=== PATIENT | female | born 2000 | race Caucasian/White ===

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

== ENCOUNTER 2019-01-03 07:30 | Inpatient (IN) | payer OTHER ==
[~2019-01-03] VITALS: Ht 162.6 cm; Wt 86.2 kg
[~2019-01-03 07:30] MED LIST changes: +PRENCHW PO
[2019-01-04] MEDS ORDERED: PERC5TAB12 PO (12:02)
[2019-01-06] MEDS ORDERED: OXYC1TAB23 PO (14:44)
[2019-01-06] MEDS ORDERED: STOO100C PO (18:56)
[2019-01-06] MEDS ORDERED: IBUP-1022 PO (18:56)
[2019-01-06 19:00] VITALS: BP 110/69
[2019-01-06] MEDS: IBUPROFEN 800 MG TAB PO SCH (19:01)
[2019-01-06 19:21] LABS: HEMATOCRIT 30.5 % (36.0-47.0); HEMOGLOBIN 9.8 g/dl (12.0-15.5); MEAN CORPUSCULAR HEMOGLOBIN 28.7 pg (27.0-33.0); MEAN CORPUSCULAR HGB CONC 32.1 g/dl (32.0-36.5); MEAN CORPUSCULAR VOLUME 89.4 fl (80.0-96.0); PLATELET COUNT, AUTOMATED 374 10^3/uL (150-450); RED BLOOD COUNT 3.41 10^6/uL (4.00-5.40); WHITE BLOOD COUNT 15.6 10^3/uL (4.0-10.0)
[2019-01-06] MEDS: PERCOCET 5MG/325MG TAB PO PRN (19:35)
[2019-01-06] MEDS: PIPERACILLIN/TAZOBACTAM SOD 3.375 GM in D5W MINI-BAG PLUS 50 ML IV SCH (19:36)
[2019-01-06 19:38] LABS: BLOOD UREA NITROGEN 11 MG/DL (7-18); CARBON DIOXIDE LEVEL 27 MEQ/L (21-32); CHLORIDE LEVEL 105 MEQ/L (98-107); CREATININE FOR GFR 0.59 MG/DL (0.55-1.30); GLUCOSE, FASTING 87 MG/DL (70-100); POTASSIUM SERUM 3.5 MEQ/L (3.5-5.1); SODIUM LEVEL 139 MEQ/L (136-145)
[2019-01-06] MEDS: LR 1,000 ML IV SCH (21:20)
[2019-01-07] MEDS: IBUPROFEN 800 MG TAB PO SCH ×4 (00:10→18:10)
[2019-01-07] MEDS: PERCOCET 5MG/325MG TAB PO PRN ×6 (00:10→20:55)
[2019-01-07] MEDS: PIPERACILLIN/TAZOBACTAM SOD 3.375 GM in D5W MINI-BAG PLUS 50 ML IV SCH ×4 (01:33→19:59)
[2019-01-07 04:00] VITALS: BP 116/59
[2019-01-07] MEDS: LR 1,000 ML IV SCH (06:30)
--- NOTE | 2019-01-07 07:39 | HPE ---
DATE OF ADMISSION: 01/06/2019 HISTORY: A 18-year-old (G) 2, para (P) 2 female postoperative day 10 status post repeat section presents with worsening pain on the left side of her incision for the last several days. She felt a bulge on that side of the incision which became tender. She denies fevers or chills. She denies nausea or vomiting. She was seen in the office on the day of admission and had incision drainage of an abscess of the wound. She had a large amount of pus that came out of the wound. OBSTETRICAL HISTORY: September 2016 - section. December 2018 - section. MEDICAL HISTORY: Noncontributory. SURGICAL HISTORY: section times two. ALLERGIES: None. SOCIAL HISTORY: Patient lives in [place], [place]. Father of the baby is involved. Denies cigarettes, alcohol or drug use. FAMILY HISTORY: Noncontributory. PHYSICAL EXAMINATION: Blood pressure 110/69, pulse 72, temperature 98.3, respiratory rate 18, oxygen saturation 100% room air. She appears mildly uncomfortable. Head and neck exam is normal. Lungs: Clear. Heart: Regular rate and rhythm. Abdomen: Moderately tender in the lower abdomen. Mild erythema around the incision. He has purulent drainage from a 2 cm opening in the incision on the left side. Extremities: Nontender. ASSESSMENT: 18-year-old, 2, para 2 female postoperative day 10 status post section presents with noted abscess. PLAN: Admit for IV antibiotics. She will get pain management and dressing changes.
[2019-01-07 08:00] VITALS: BP 108/66
[2019-01-07 12:00] VITALS: BP 120/55
[2019-01-07 16:00] VITALS: BP 132/77
[2019-01-07 20:00] VITALS: BP 127/60
[2019-01-08] VITALS: BP 125/80
[2019-01-08] MEDS: IBUPROFEN 800 MG TAB PO SCH ×2 (00:10→05:23)
[2019-01-08] MEDS: PERCOCET 5MG/325MG TAB PO PRN ×3 (01:01→09:24)
[2019-01-08] MEDS: PIPERACILLIN/TAZOBACTAM SOD 3.375 GM in D5W MINI-BAG PLUS 50 ML IV SCH ×2 (01:40→08:29)
[2019-01-08 08:00] VITALS: BP 139/76
[2019-01-08 09:54] VITALS: BP 139/76
--- NOTE | 2019-01-09 10:18 | DSES ---
DATE OF ADMISSION: 01/06/2019 DATE OF DISCHARGE: 01/08/2019 18-year-old 2, para 2, female postop day 10 status post repeat section who presented with worsening pain on the left side of her incision for the last several days. She felt a bulge on that side of the incision which became tender. Denies fevers. She was seen in the office on the day of admission, had the incision drained for a large abscess. Wound cultures were taken at that time. HOSPITAL COURSE: The patient was admitted on 01/06/2019 due to postoperative wound infection status post incision and drainage of wound abscess. She was started on Zosyn for antibiotic coverage. She had daily dressing changes. She needed pain management. The redness and cellulitis that developed around the wound improved during her hospitalization. Her pain improved. The drainage from the incision had decreased. Wound cultures were pending at the time of discharge, but due to the fact that the patient was dramatically improved she was deemed stable for discharge. ADMISSION DIAGNOSIS: Postoperative wound abscess. DISCHARGE DIAGNOSIS: Postoperative wound abscess. DISPOSITION: Patient will be seen in the office for daily dressing changes. She will continue Augmentin twice a day as an outpatient. Wound cultures will be followed up on.
== END 2019-01-08 10:20 | disposition home or self-care (01) | DRG 561 ==
LOC: UNDOADMIN 01-06 17:56 → M PED 01-06 17:56
PROVIDERS: ADMIT Specialist; ATTEND Specialist
DX: O86.02 Infection of obstetric surgical wound, deep incisional site (principal)

== ENCOUNTER → 2019-01-06 | Outpatient (REF) | payer OTHER ==
[~2019-01-06] MED LIST changes: +IBUPROFEN 800 MG TAB PO SCH; +LR 1,000 ML IV SCH; +PERC5TAB12 PO; +PERCOCET 5MG/325MG TAB PO PRN; +PIPERACILLIN/TAZOBACTAM SOD 3.375 GM in D5W MINI-BAG PLUS 50 ML IV SCH; +STOO100C PO
== END ==
LOC: M LAB REF 17:11
PROVIDERS: ATTEND Specialist
DX: O86.01 Infection of obstetric surgical wound, superficial incisional site (principal)

== ENCOUNTER 2019-02-12 16:04 | Emergency (ER) | payer OTHER ==
[~2019-02-12] VITALS: Ht 162.6 cm; Wt 84.0 kg
[~2019-02-12 16:04] MED LIST changes: -IBUPROFEN 800 MG TAB PO SCH; -LR 1,000 ML IV SCH; +MM S100C PO; -PERCOCET 5MG/325MG TAB PO PRN; -PIPERACILLIN/TAZOBACTAM SOD 3.375 GM in D5W MINI-BAG PLUS 50 ML IV SCH; -STOO100C PO
[2019-02-12 16:15] VITALS: BP 125/63
[2019-02-12 19:50] LABS: BASO % 0.2 % (0.0-1.0); EOS % 0.3 % (0.0-3.0); HEMATOCRIT 34.2 % (36.0-47.0); LYMPH # 1.7 10^3/uL (1.5-6.5); LYMPH % 10.7 % (24.0-44.0); MEAN CORPUSCULAR HEMOGLOBIN 28.4 pg (27.0-33.0); MEAN CORPUSCULAR HGB CONC 32.2 g/dl (32.0-36.5); MEAN CORPUSCULAR VOLUME 88.1 fl (80.0-96.0); MONO # 1.5 10^3/uL (0.0-0.8); MONO % 9.1 % (0.0-5.0); NEUTROPHILS # 12.7 10^3/uL (1.8-7.7); NEUTROPHILS % 79.3 % (36.0-66.0); PLATELET COUNT, AUTOMATED 284 10^3/uL (150-450); RED BLOOD COUNT 3.88 10^6/uL (4.00-5.40)
[2019-02-12 20:13] LABS: BLOOD UREA NITROGEN 8 MG/DL (7-18); CARBON DIOXIDE LEVEL 24 MEQ/L (21-32); CHLORIDE LEVEL 104 MEQ/L (98-107); CREATININE FOR GFR 0.78 MG/DL (0.55-1.30); GLUCOSE, FASTING 97 MG/DL (70-100); POTASSIUM SERUM 3.6 MEQ/L (3.5-5.1); SODIUM LEVEL 137 MEQ/L (136-145)
[2019-02-13] MEDS ORDERED: CIPR-249 PO (17:05)
[2019-02-13] MEDS ORDERED: IBUP-1022 PO (17:05)
[2019-02-13] MEDS ORDERED: PROM25TA12 PO (17:05)
== END 2019-02-12 18:00 | disposition left against medical advice (07) ==
LOC: M ED 16:04
DX: Z53.21 Procedure and treatment not carried out due to patient leaving prior to being seen by health care provider (principal)

== ENCOUNTER 2019-02-12 18:56 | Emergency (ER) | payer OTHER ==
[~2019-02-12] VITALS: Ht 162.6 cm; Wt 84.1 kg
[2019-02-12 18:58] VITALS: BP 135/75
[2019-02-12] MEDS ORDERED: ACETAMINOPHEN 325 MG TAB PO ONE (19:15)
[2019-02-13] MEDS ORDERED: CIPR-249 PO (17:05)
[2019-02-13] MEDS ORDERED: IBUP-1022 PO (17:05)
[2019-02-13] MEDS ORDERED: PROM25TA12 PO (17:05)
== END 2019-02-12 22:26 | disposition left against medical advice (07) ==
LOC: M ED 18:56
DX: Z53.21 Procedure and treatment not carried out due to patient leaving prior to being seen by health care provider (principal)

== ENCOUNTER 2019-02-13 11:48 | Emergency (ER) | payer OTHER ==
[~2019-02-13] VITALS: Ht 162.6 cm; Wt 82.7 kg
[2019-02-13 12:43] LABS: BASO % 0.2 % (0.0-1.0); EOS % 0.2 % (0.0-3.0); HEMATOCRIT 36.7 % (36.0-47.0); HEMOGLOBIN 11.7 g/dl (12.0-15.5); LYMPH # 1.4 10^3/uL (1.5-6.5); LYMPH % 8.7 % (24.0-44.0); MEAN CORPUSCULAR HEMOGLOBIN 28.5 pg (27.0-33.0); MEAN CORPUSCULAR HGB CONC 31.9 g/dl (32.0-36.5); MEAN CORPUSCULAR VOLUME 89.5 fl (80.0-96.0); MONO # 1.3 10^3/uL (0.0-0.8); MONO % 8.1 % (0.0-5.0); NEUTROPHILS # 12.8 10^3/uL (1.8-7.7); NEUTROPHILS % 82.3 % (36.0-66.0); PLATELET COUNT, AUTOMATED 287 10^3/uL (150-450); WHITE BLOOD COUNT 15.5 10^3/uL (4.0-10.0)
[2019-02-13 13:16] LABS: ALBUMIN 3.6 GM/DL (3.2-5.2); ALT/SGPT 21 U/L (12-78); BILIRUBIN,DIRECT 0.3 MG/DL (0.0-0.2); BILIRUBIN,TOTAL 1.2 MG/DL (0.2-1.0); BLOOD UREA NITROGEN 6 MG/DL (7-18); CALCIUM LEVEL 9.3 MG/DL (8.5-10.1); CARBON DIOXIDE LEVEL 27 MEQ/L (21-32); CHLORIDE LEVEL 105 MEQ/L (98-107); CREATININE FOR GFR 0.79 MG/DL (0.55-1.30); GLUCOSE, FASTING 119 MG/DL (70-100); LIPASE 53 U/L (73-393); POTASSIUM SERUM 3.7 MEQ/L (3.5-5.1); SODIUM LEVEL 138 MEQ/L (136-145)
[2019-02-13] MEDS ORDERED: NS 1,000 ML IV ONE (15:00)
[2019-02-13] MEDS ORDERED: cefTRIAXone SOD 1 GM in D5W MINI-BAG PLUS 50 ML IV ONE (15:00)
[2019-02-13] MEDS ORDERED: KETOROLAC 30 MG/ML VIAL (J1885) IV ONE (15:15)
[2019-02-13 16:08] LABS: HCG, SERUM QUALITATIVE NEGATIVE (NEGATIVE)
[2019-02-13] MEDS ORDERED: IBUP-1022 PO (17:05)
[2019-02-13] MEDS ORDERED: CIPR-249 PO (17:05)
[2019-02-13] MEDS ORDERED: PROM25TA12 PO (17:05)
[2019-02-13 17:10] VITALS: BP 128/60
--- NOTE | 2019-02-14 07:23 | REP ---
RENAL AND BLADDER ULTRASOUND: Real-time sonographic evaluation of the kidneys is performed and demonstrates both kidneys to be normal in size and echotexture. Right kidney measuring 11.6 x 6.5 x 4.2 cm and left kidney 10.7 x 5.0 x 5.5 cm. There is no hydronephrosis bilaterally. There is no renal mass or nephrolithiasis. Urinary bladder is distended with no mass of calculus. IMPRESSION: Negative renal and bladder ultrasound. Electronically Signed by Ryan Suarez MD 02/14/2019 05:02 P
== END 2019-02-13 17:47 | disposition home or self-care (01) ==
LOC: M ED 11:48
DX: N12 Tubulo-interstitial nephritis, not specified as acute or chronic (principal)
CPT/HCPCS: 36415; 76775; 80048; 80076; 81001; 83690; 84703; 85025; 87040; 87088; 87186; 96361; 96365; 96375; 99284; J0696; J1885

== ENCOUNTER 2019-07-03 19:32 | Emergency (ER) | payer OTHER ==
[~2019-07-03] VITALS: Ht 162.6 cm; Wt 77.6 kg
[~2019-07-03 19:32] MED LIST changes: +CIPR-249 PO; +PROM25TA12 PO
[2019-07-03] MEDS ORDERED: NS 1,000 ML IV ONE (20:45)
[2019-07-03] MEDS ORDERED: ONDANSETRON 4MG/2ML VIAL (J2405) IV ONE (20:45)
[2019-07-03] MEDS ORDERED: GI COCKTAIL 50ML BTL(HYOSCYAMINE/MAALOX/LIDOCAINE VISCOUS)(1:3:1) PO ONE (20:45)
[2019-07-03] MEDS ORDERED: PANTOPRAZOLE 40MG INJ (PROTONIX) (C9113) IV ONE (20:45)
[2019-07-03 20:56] LABS: URINE PREG TEST NEGATIVE (NEGATIVE)
[2019-07-03 21:11] LABS: BASO % 0.3 % (0.0-1.0); EOS # 0.1 10^3/uL (0.0-0.5); EOS % 0.6 % (0.0-3.0); HEMATOCRIT 37.9 % (36.0-47.0); HEMOGLOBIN 11.7 g/dl (12.0-15.5); LYMPH # 1.7 10^3/uL (1.5-5.0); LYMPH % 10.7 % (24.0-44.0); MEAN CORPUSCULAR HEMOGLOBIN 27.9 pg (27.0-33.0); MEAN CORPUSCULAR HGB CONC 30.9 g/dl (32.0-36.5); MEAN CORPUSCULAR VOLUME 90.5 fl (80.0-96.0); MONO # 1.1 10^3/uL (0.0-0.8); MONO % 7.1 % (0.0-5.0); NEUTROPHILS # 12.8 10^3/uL (1.5-8.5); PLATELET COUNT, AUTOMATED 302 10^3/uL (150-450); RED BLOOD COUNT 4.19 10^6/uL (4.00-5.40); WHITE BLOOD COUNT 15.8 10^3/uL (4.0-10.0)
[2019-07-03 21:46] LABS: ALBUMIN 3.5 GM/DL (3.2-5.2); ALT/SGPT 20 U/L (12-78); BILIRUBIN,DIRECT 0.2 MG/DL (0.0-0.2); BILIRUBIN,TOTAL 0.5 MG/DL (0.2-1.0); BLOOD UREA NITROGEN 9 MG/DL (7-18); CARBON DIOXIDE LEVEL 29 MEQ/L (21-32); CHLORIDE LEVEL 107 MEQ/L (98-107); CK-MB VALUE MASS < 1.0 NG/ML (<3.6); CPK CREATINE PHOSPHOKINASE 77 U/L (26-192); CREATININE FOR GFR 0.72 MG/DL (0.55-1.30); GLUCOSE, FASTING 93 MG/DL (70-100); LIPASE 63 U/L (73-393); POTASSIUM SERUM 3.7 MEQ/L (3.5-5.1); SODIUM LEVEL 141 MEQ/L (136-145); TOTAL PROTEIN 7.1 GM/DL (6.4-8.2); TROPONIN I < 0.02 NG/ML (< 0.10)
[2019-07-03] MEDS ORDERED: ISOVUE-370 76% 100ML VIAL (Q9967) As Ordered ONE (22:48)
--- NOTE | 2019-07-04 00:08 | REPVR ---
PROCEDURE INFORMATION: Exam: CT Abdomen And Pelvis With Contrast Exam date and time: 07/03/2019 11:04 PM Age: 19 years old Clinical history: Abdominal pain; Generalized; Additional info: Gen abd pain TECHNIQUE: Imaging protocol: Computed tomography of the abdomen and pelvis with intravenous contrast. Radiation optimization: All CT scans at this facility use at least one of these dose optimization techniques: automated exposure control; mA and/or kV adjustment per patient size (includes targeted exams where dose is matched to clinical indication); or iterative reconstruction. Contrast material: ISO; Contrast volume: 100 ml; Contrast route: AC; COMPARISON: RENAL US 02/13/2019 3:35 PM FINDINGS: Liver: Normal. No mass. Gallbladder and bile ducts: Normal. No calcified stones. No ductal dilation. Pancreas: Normal. No ductal dilation. Spleen: Normal. No splenomegaly. Adrenals: Normal. No mass. Kidneys and ureters: Normal. No hydronephrosis. Stomach and bowel: Several loops of small bowel in the lower mid abdomen demonstrates thickened brower consistent with regional regional enteritis. Inflammatory bowel disease can produce a similar appearance in the appropriate clinical setting. Appendix: No evidence of appendicitis. Intraperitoneal space: Unremarkable. No free air. No significant fluid collection. Vasculature: Unremarkable. No abdominal aortic aneurysm. Lymph nodes: Unremarkable. No enlarged lymph nodes. Bladder: Unremarkable as visualized. Reproductive: Unremarkable as visualized. Bones/joints: Unremarkable. No acute fracture. Soft tissues: Unremarkable. IMPRESSION: Several loops of small bowel in the lower mid abdomen demonstrates thickened brower consistent with regional regional enteritis. Inflammatory bowel disease can produce a similar appearance in the appropriate clinical setting. Electronically signed by: Samson Obrien On 07/04/2019 00:07:36 AM
--- NOTE | 2019-07-04 00:10 | REPVR ---
PROCEDURE INFORMATION: Exam: CT Angiography Chest With Contrast Exam date and time: 07/03/2019 11:04 PM Age: 19 years old Clinical history: Chest pain; Type not specified; Additional info: Chest pain, SOB TECHNIQUE: Imaging protocol: Computed tomographic angiography of the chest with intravenous contrast. 3D rendering: MIP reconstructed images were created and reviewed. Radiation optimization: All CT scans at this facility use at least one of these dose optimization techniques: automated exposure control; mA and/or kV adjustment per patient size (includes targeted exams where dose is matched to clinical indication); or iterative reconstruction. Contrast material: ISO; Contrast volume: 100 ml; Contrast route: AC; COMPARISON: No relevant prior studies available. FINDINGS: Pulmonary arteries: Normal. No pulmonary emboli. Aorta: Unremarkable. No aortic aneurysm. No aortic dissection. Lungs: Unremarkable. No consolidation. No masses. Pleural space: Unremarkable. No pneumothorax. No pleural effusion. Heart: Unremarkable. No cardiomegaly. No pericardial effusion. Lymph nodes: Unremarkable. No enlarged lymph nodes. Bones/joints: Unremarkable. No acute fracture. Soft tissues: Unremarkable. IMPRESSION: No acute findings. Electronically signed by: Samson Obrien On 07/04/2019 00:09:44 AM
[2019-07-04 01:30] VITALS: BP 110/53
[2019-07-04] MEDS ORDERED: ONDA4TAB6 PO (01:31)
--- NOTE | 2019-07-04 08:17 | ECGEPIP ---
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
== END 2019-07-04 01:45 | disposition home or self-care (01) ==
LOC: M ED 19:32
DX: K52.9 Noninfective gastroenteritis and colitis, unspecified (principal); F33.9 Major depressive disorder, recurrent, unspecified
CPT/HCPCS: 71275; 74177; 80048; 80076; 81001; 82550; 82553; 83690; 84703; 85025; 93005; 96361; 96374; 96375; 99284; C9113; J2405; Q9967

== ENCOUNTER 2021-05-30 19:38 | Inpatient (IN) | payer MEDICAID, OTHER ==
[~2021-05-30] VITALS: Ht 162.6 cm; Wt 69.6 kg
[~2021-05-30 19:38] MED LIST changes: +ONDA4TAB6 PO
--- OUTSIDE RECORDS SUMMARY | 2021-05-30 19:46 | CCD ---
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 [IVP] (ONDANSETRON HCL) Zofran IVP 4 mg15:51 09/04/2020 Dose: 4 mg IVPAmparo Cheney, R.NBertha Site: #1 right forearmGiven BENADRYL [IVP] (DIPHENHYDRAMINE Benadryl IVP 25 mg15:56 09/04/2020 HCL)Amparo Cheney R.N. Dose: 25 mg IVP Site: #1 right forearmStart ofirmev * Ofirmev IV 1000 mg (NOW x1,15:57 09/04/2020 Dose: 1000 mg * Drip IV Infuse over 15 minutes)Amparo Cheney R.N.----Stop16:12 09/04/2020Amparo Cheney R.N.Start ROCEPHIN (1GM/50ML) [IVPB] Rocephin (1gm/50mL) IVPB 189564:22 09/04/2020 (CEFTRIAXONE SODIUM) mg with Dextrose 50 ml spike bagAmparo Cheney R.N. Dose: 1 gm IVPB (D5W)---- Rate: 100 mL/hr over 30 minute(s)Stop Dispensed: 50 mL bag17:32 09/04/2020 Site: #1 right forearmAmparo Cheney R.N.Given MORPHINE [IVP] Morphine IVP 4 mg (HIGH ALERT17:10 09/04/2020 Dose: 4 mg IVP MEDICATION)Amparo Cheney R.N. Site: #1 right forearm Name Value Range Interpretation Code Description Data Gini rce(s) Supporting Document(s) ID Date Data Source [id number] 09/04/2020 02:28:00 PM EST [facility] 1 General Instructions [facility] Emergency Department [address] [place] [address] Phone #: ext- [phone] 09/04/2020 14:13 Patient: KATH SCHAEFER Sex: F : 2000 Age: 20y Acute suprapubic abdominal pain of unknown cause. Acute urinary tract infection with cystitis and hematuria. Post-operative complication (Post Op pain s/p tube removal s/p ectopic).INSTRUCTIONS Take Tylenol (Acetaminophen) or Motrin (Ibuprofen) as needed for fever control. Take medication according to label instructions. No bending or stooping, prolonged sitting or lifting greater than 5 lbs for 1 weeks. No strenuous activity for one weeks. Do not work for three days. (Recommend to utilize OTC Motrin and Tylenol to control inflammation and pain management. Recommend to follow the instructions on the bottle and not to exceed. Recommend to utilize OTC antibiotic ointment to help control possible skin infection and help promote wound healing and care.). Warnings: GENERAL WARNINGS: Return or contact your physician immediately if your condition worsens or changes unexpectedly, if not improving as expected, or if other problems arise. Your Current Medications: . No home medication. Prescription monitor program consulted by me. Prescription does not exceed state maximum supply of medications Prescription Medications: Percocet 5 mg-325 mg tablet 1 tablet three times a day for 3 days -- Dispense 9 tablet. Refills: 0. Substitution permitted. Note to Pharmacy - post op pain. Pharmacy - [id number] - [address] [place] [address]. . cephalexin 500 mg capsule Take 1 capsule three times a day for 7 days -- Dispense 21 capsule. Refills: 0. Substitution permitted. Pharmacy - [facility] - [address] [place] [address]. . Zofran 4 mg tablet Take 1 tablet three times a day for 3 days -- Dispense 9 tablet. Refills: 0. Substitution permitted. 2 General Instructions [facility] Emergency Department [address] [place] [address] Phone #: ext- [phone] 09/04/2020 14:13 Patient: KATH SCHAEFER Sex: F : 2000 Age: 20yPharmacy - [id number] - [id number] [facility] ; [place] [address]. FaxNumber: .Follow-up:Return to the emergency department as needed. Follow up with your healthcare provider in about twodays if not better. Call for an appointment.Understanding of the discharge instructions verbalized by patient.Follow-up with: [facility], , , [address] [facility], [place], [address] Follow up. Call for the next available appointment. Reason for referral: evaluation, treatment and Toestablish care.Follow-up with: [facility], , , [address] [facility], [place], [address] Follow up Wednesday. Call for an appointment. Reason for referral: Dr. Hewitt indicated he wanted to see pton Wednesday. ADDITIONAL INFORMATIONUnknown Causes of Abdominal Pain (Female) 3 General Instructions [facility] Emergency Department [address] [place] [address] Phone #: ext- [phone] 09/04/2020 14:13 -- Patient: KATH SCHAEFER Sex: F : 2000 Age: 20yThe exact cause of your belly (abdominal) pain is not clear. This does not mean that this is somethingto worry about. Everyone likes to know the exact cause of the problem. But sometimes with bellypain, there is no clear-cut cause, and this could be a good thing. The good news is that yoursymptoms can be treated, and you will feel better.Your condition does not seem serious now. But sometimes the signs of a serious problem may takemore time to appear. For this reason, it is important for you to watch for any new symptoms,problems, or worsening of your condition.Over the next few days, the abdominal pain may come and go. Or it may be constant. Other commonsymptoms can include nausea and vomiting. Sometimes it can be difficult to tell if you feel nauseous.You may just feel bad and not connect that feeling to nausea. Constipation, diarrhea, and a fever maygo along with the pain.The pain may continue even if treated correctly over the following days. Depending on how things go,sometimes the cause can become clear and may need more or different treatment. Additionalevaluations, medicines, or tests may also be needed.Home careYour healthcare provider may prescribe medicine for pain, symptoms, or an infection. Follow thehealthcare provider's instructions for taking these medicines. 4 General Instructions [facility] Emergency Department [address] [place] [address] Phone #: ext- [phone] 09/04/2020 14:13 [id number] : 2000 [facility] Rest as much as you can until your next exam. No strenuous activities. Try to find positions that ease discomfort. A small pillow placed on the abdomen may help relieve pain. Something warm on your abdomen (such as a heating pad) may help, but be careful not to burn yourself.Diet Don't force yourself to eat, especially if having cramps, vomiting, or diarrhea. Water is important so you don't get dehydrated. Soup may also be good. Sports drinks may also help, especially if they are not too acidic. Don't drink sugary drinks as this can make things worse. Take liquids in small amounts. Don't guzzle them. Caffeine sometimes makes the pain and cramping worse. Don't take dairy products if you have vomiting or diarrhea. Don't eat large amounts at a time. Wait a few minutes between bites. Eat a diet low in fiber (called a low-residue diet). Foods allowed include refined breads, white rice, fruit and vegetable juices without pulp, tender meats. These foods will pass more easily through the intestine. Don't have whole-grain foods, whole fruits and vegetables, meats, seeds and nuts, fried or fatty foods, dairy, alcohol and spicy foods until your symptoms go away.Follow-up careFollow up with your healthcare provider, or as advised, if your pain does not begin to improve in thenext 24 hours.Call [phone] if any of these occur: Trouble breathing Confusion Fainting or loss of consciousness Rapid heart rate 5 General Instructions [facility] Emergency Department [address] [place] [address] Phone #: ext- [phone] 09/04/2020 14:13 Patient: KATH SCHAEFER Sex: F : 2000 Age: 20y SeizureWhen to seek medical adviceCall your healthcare provider right away if any of these occur: Pain gets worse or moves to the right lower abdomen New or worsening vomiting or diarrhea Swelling of the abdomen Unable to pass stool for more than 3 days Fever of 100.4F (38C) or higher, or as directed by your healthcare provider. Blood in vomit or bowel movements (dark red or black color) Yellow color of eyes and skin (jaundice) Weakness, dizziness Chest, arm, back, neck, or jaw pain Unexpected vaginal bleeding or missed period Can't keep down liquids or water and you are getting dehydrated [id number] [employer]. [address] [place] [address], [place] [address]. All rights reserved. This information is not intended as asubstitute for professional medical care. Always follow your healthcare professional's instructions.Bladder Infection, Female (Adult) 6 General Instructions [facility] Emergency Department [address] [place] [address] Phone #: ext- [phone] 09/04/2020 14:13 Patient: KATH SCHAEFER Sex: F : 2000 Age: 20yUrine normally doesn't have any germs (bacteria) in it. But bacteria can get into the urinary tract fromthe skin around the rectum. Or they can travel in the blood from other parts of the body. Once theyare in your urinary tract, they can cause infection in these areas: The urethra (urethritis) The bladder (cystitis) The kidneys (pyelonephritis)The most common place for an infection is in the bladder. This is called a bladder infection. This isone of the most common infections in women. Most bladder infections are easily treated. They arenot serious unless the infection spreads to the kidney.The terms bladder infection, UTI, and cystitis are often used to describe the same thing. But they arenot always the same. Cystitis is an inflammation of the bladder. The most common cause of cystitis isan infection.SymptomsThe infection causes inflammation in the urethra and bladder. This causes many of the symptoms.The most common symptoms of a bladder infection are: Pain or burning when urinating Having to urinate more often than normal Urgent need to urinate 7 General Instructions [facility] Emergency Department [address] [place] [address] Phone #: ext- [phone] 09/04/2020 14:13 Patient: KATH SCHAEFER Sex: F : 2000 Age: 20y Only a small amount of urine comes out Blood in urine Belly (abdominal) discomfort. This is often in the lower belly above the pubic bone. Cloudy urine Strong- or bad-smelling urine Unable to urinate (urinary retention) Unable to hold urine in (urinary incontinence) Fever Loss of appetite Confusion (in older adults)CausesBladder infections are not contagious. You can't get one from someone else, from a toilet seat, orfrom sharing a bath.The most common cause of bladder infections is bacteria from the bowels. The bacteria get onto theskin around the opening of the urethra. From there, they can get into the urine. Then they travel up tothe bladder, causing inflammation and infection. This often happens because of: Wiping incorrectly after urinating. Always wipe from front to back. Bowel incontinence Procedures such as having a catheter put in Older age Not emptying your bladder. This can give bacteria a chance to grow in your urine. Fluid loss (dehydration) Constipation Having sex Using a diaphragm for controlTreatment 8 General Instructions [facility] Emergency Department [address] [place] [address] Phone #: ext- [phone] 09/04/2020 14:13 Patient: KATH SCHAEFER Sex: F : 2000 Age: 20yBladder infections are diagnosed by a urine test and urine culture. They are treated with antibiotics.They often clear up quickly without problems. Treatment helps prevent a more serious kidneyinfection.MedicinesMedicines can help in the treatment of a bladder infection: Take antibiotics until they are used up, even if you feel better. It's important to finish them to make sure the infection has cleared. You can use acetaminophen or ibuprofen for pain, fever, or discomfort, unless another medicine was prescribed. If you have long-term (chronic) liver or kidney disease, talk with your healthcare provider before using these medicines. Also talk with your provider if you've ever had a stomach ulcer or GI (gastrointestinal) bleeding, or are taking blood-thinner medicines. If you are given phenazopydridine to reduce burning with urination, it will make your urine a bright orange color. This can stain clothing.Care and preventionThese self-care steps can help prevent future infections: Drink plenty of fluids. This helps to prevent dehydration and flush out your bladder. Do this unless you must restrict fluids for other health reasons, or your healthcare provider told you not to. Clean yourself correctly after going to the bathroom. Wipe from front to back after using the toilet. This helps prevent the spread of bacteria. Urinate more often. Don't try to hold urine in for a long time. Wear loose-fitting clothes and cotton underwear. Don't wear tight-fitting pants. Improve your diet and prevent constipation. Eat more fresh fruits and vegetables, and fiber. Eat less junk foods and fatty foods. Don't have sex until your symptoms are gone. Don't have caffeine, alcohol, and spicy foods. These can irritate your bladder. Urinate right after you have sex to flush out your bladder. If you use control pills and have frequent bladder infections, discuss it with your healthcare provider.Follow-up care 9 General Instructions [facility] Emergency Department [address] [place] [address] Phone #: ext- [phone] 09/04/2020 14:13 Patient: KATH SCHAEFER Sex: F : 2000 Age: 20yCall your healthcare provider if all symptoms are not gone after 3 days of treatment. This is especiallyimportant if you have repeat infections.If a culture was done, you will be told if your treatment needs to be changed. If directed, you cancall to find out the results.If X-rays were done, you will be told if the results will affect your treatment.Call [phone] if any of the following occur: Trouble breathing Hard to wake up or confusion Fainting (loss of consciousness) Fast heart rateWhen to get medical adviceCall your healthcare provider right away if any of these occur: Fever of 100.4F (38.0C) or higher, or as directed by your healthcare provider Symptoms are not better after 3 days of treatment Back or belly pain that gets worse Repeated vomiting, or unable to keep medicine down Weakness or dizziness Vaginal discharge Pain, redness, or swelling in the outer vaginal area (labia) [id number] [employer]. [address] [place] [address], [place] [address]. All rights reserved. This information is not intended as asubstitute for professional medical care. Always follow your healthcare professional's instructions.Blood in the Urine 10 General Instructions [facility] Emergency Department [address] [place] [address] Phone #: ext- [phone] 09/04/2020 14:13 Patient: KATH SCHAEFER Sex: F : 2000 Age: 20yBlood in the urine (hematuria) has many possible causes. If it occurs after an injury (such as a caraccident or fall), it is most often a sign of bruising to the kidney or bladder. Common causes of bloodin the urine include urinary tract infections, kidney stones, inflammation, tumors, or certain otherdiseases of the kidney or bladder. Menstruation can cause blood to appear in the urine sample, but itis not coming from the urinary tract.If only a tiny (trace) amount of blood is present, it will show up on the urine test, even though the urinemay be yellow and not pink or red. This may occur with any of the above conditions, as well as heavyexercise or high fever. In this case, your healthca re provider may want to repeat the urine test onanother day. This will show if there is still blood in the urine. If there is, then other tests can be doneto find out the cause.Home careFollow these home care guidelines: If your urine does not look bloody (pink, brown, or red) then you don't need to restrict your activity in any way. If you can see blood in your urine, rest and don't do any strenuous activity until your next exam. Don't use aspirin, blood thinners, or anti-platelet or anti-inflammatory medicines. These include ibuprofen and naproxen. These thin the blood and may increase bleeding. Call your healthcare provider to talk about using these medicines.Follow-up care 11 General Instructions [facility] Emergency Department [address] [place] [address] Phone #: ext- [phone] 09/04/2020 14:13 Patient: KATH SCHAEFER Sex: F : 2000 Age: 20yFollow up with your healthcare provider, or as advised. If you were injured and had blood in yoururine, you should have a repeat urine test in 1 to 2 days. Contact your provider for this test.A radiologist will review any X-rays that were taken. You will be told of any new findings that mayaffect your care.When to seek medical adviceCall your healthcare provider right away if any of these occur: Bright red blood or blood clots in the urine (if you did not have this before) Weakness, dizziness or fainting New groin, belly, or back pain Fever of 100.4F (38C) or higher, or as directed by your provider Repeated vomiting Bleeding from the nose or gums or easy bruising [phone] [employer]. [address] [place] [address]. All rights reserved. This information is not intended as asubstitute for professional medical care. Always follow your healthcare professional's instructions. You have been given the following additional information: Abdominal Pain, Unknown Cause, (Female) Bladder Infection, Female (Adult) Hematuria No bending or stooping, prolonged sitting or lifting greater than 5 lbs for 1 weeks. No strenuous activity for one weeks. Do not work for three days.(Electronically signed by Castillo Boggs P.A.-C 09/05/2020 21:50) Name Value Range Interpretation Code Description Data Gini rce(s) Supporting Document(s) ID Date Data Source [id number] 09/04/2020 02:28:00 PM EST [facility] 1 Clinical Report - Nurses [facility] Emergency Department [address] [place] [address] Phone #: ext- [phone] 09/04/2020 14:13 Patient: KATH SCHAEFER Sex: F : 2000 Age: 20yTRIAGEArrived by private vehicle. Historian: patient. Accompanied by family.Acuity: LEVEL 3.Chief Complaint: ABDOMINAL PAIN and NAUSEA and (swelling to groin).Alert. No acute distress. (crying).Onset. (08/29). ( Pt says she had an ectopic and had her left fallopian tube removed here on the08/29. She says since then she has been having pain and swelling to her groin. She has been takingprescribed Percocet and ibuprofen but has run out. She says she is unable to sleep because of the pain.Also, she has 4 shital to the top of her head that were placed here 08/26 that she believes need to comeout.).Treatment FILTERS ASSEMBLER:None.SEPSIS SCREEN: SIRS SCREEN NEGATIVE: heart rate greater than 90. SEPSIS SCREEN NEGATIVE.No suspected or confirmed signs of infection present.GABBI COMA SCORE: 15- eyes open- spontaneous (4); best verbal response- oriented (5); bestmotor response- obeys commands (6). --14:25 09/04/20 Maria R Benitez R.N.14:15 09/04/20. BP: 132/80. MAP: 97. HR: 99. RR: 18. O2 saturation: 99%. Temp: 97.3 F. Pain level now:05/04. --14:25 09/04/20 Maria R Benitez R.N.Weight: 86.1 kg stated. Height/Length: 64 inches Per Patient. BMI: 32.6. --14:23 09/04/20 Maria R Benitez R.N.MedicationsNone. --14:19 09/04/20 Maria R Benitez R.N.AllergiesNo Known Drug Allergy. --14:19 09/04/20 Maria R Benitez R.N. PROBLEMS:Ectopic . --14:19 09/04/20 Maria R Benitez R.N.ADDITIONAL SURGERIES:Left fallopian tube removal. --14:20 09/04/20 Maria R Benitez R.N.C- Section. --14:24 09/04/20 Maria R Benitez R.N. 2 Clinical Report - Nurses [facility] Emergency Department [address] [place] [address] Phone #: ext- [phone] 09/04/2020 14:13 Patient: KATH SCHAEFER Sex: F : 2000 Age: 20y History PAST MEDICAL HX: Immunizations: up-to-date. Last normal menstrual period- Aug 06. Denies current . SOCIAL HX: Never smoker. No alcohol use or drug use. No recent travel. No known contact with a sick individual. The patient was offered HIV testing but declined and hepatitis C testing but declined. The patient has not traveled outside the [place] Infectious disease exposure: The patient was not exposed to C-diff, MRSA, VRE, CRE or Coronavirus. SELF HARM ASSESSMENT: Self harm assessment was performed. The patient answered "no" to the question(s) "Have you recently felt down, depressed, or hopeless?", "Do you have thoughts of harming or killing yourself?", "Do you have a plan for harming or killing yourself?", "Have you recently had thoughts about harming or killing others?", "Do you have any dangerous items in your possession?", "Have you noticed less interest or pleasure in doing things?", "Are you here because you tried to hurt yourself?" and "Have you ever tried to hurt yourself before today?". ABUSE ASSESSMENT: No report of abuse. NUTRITIONAL RISK ASSESSMENT: The nutritional risk assessment revealed no deficiencies. FUNCTIONAL ASSESSMENT: Functional assessment: no impairments noted. LEARNING NEEDS ASSESSMENT: The learning needs assessment revealed no barriers. FALL RISK ASSESSMENT: Fall risk assessment completed. No risk factors identified. SKIN INTEGRITY ASSESSMENT: Skin integrity risk assessment completed. No skin integrity risk identified. --14:09/04/20 Maria R Benitez R.N. Interventions Identification band on patient. To treatment room. --14:09/04/20 Maria R Benitez R.N.PHYSICAL ASSESSMENTAmbulatory to room. Patient gowned.GENERAL / NEURO / PSYCH: Alert. Oriented X 4. Appears anxious.HEENT: Mucous membranes are pink.RESPIRATORY: Respirations not labored.CVS: Normal sinus rhythm noted. Capillary refill less than 2 seconds.GI / : Abdominal tenderness in the lower abdomen. Guarding present. Vaginal bleeding present (1 padevery 2 hours). ( per pt, left sided vaginal swelling).SKIN: Skin is warm and dry. Tenderness. ( lower abd has four lap sites from 08/29. C/D/I with surroundingecchymosis.). --15:05 09/04/20 Amparo Cheney R.N.NURSING PROGRESS NOTES 3 Clinical Report - Nurses [facility] Emergency Department [address] [place] [address] Phone #: ext- [phone] 09/04/2020 14:13 Patient: KATH SCHAEFER Sex: F : 2000 Age: 20yReassurance given. Two patient identifiers checked. --14:25 09/04/20 Maria R Benitez R.N.15:44 09/04/2020 Site #1 started via IV in the right forearm with an 20g angiocath; one attempt. Saline lockflushed with 10 mL saline. --15:44 09/04/20 Amparo Cheney R.N.15:51 09/04/2020 Zofran (Ondansetron HCl) IVP 4 mg given over 2 minute(s) via site #1. Allergies verifiedand confirmed 5 rights. IV patency established. IV site checked: no pain, redness, or swelling. IV flushedthoroughly pre- and post-medication administration. IVP given by RN. Information reviewed with patient.--15:56 09/04/20 Amparo Cheney R.N.15:56 09/04/2020 Started bag #1 500 mL IV Fluids NS; bolus of 500 mL over 30 minute(s) via site #1 via IVpump. Allergies verified and confirmed 5 rights. IV patency established. IV site checked: no pain, redness,or swelling. IV flushed thoroughly pre- and post-medication administration. Information reviewed withpatient. --15:56 09/04/20 Amparo Cheney R.N.15:56 09/04/2020 Benadryl (diphenhydrAMINE HCl) IVP 25 mg given over 3 minute(s) via site #1. Allergiesverified and confirmed 5 rights. IV patency established. IV site checked: no pain, redness, or swelling. IVflushed thoroughly pre- and post- medication administration. IVP given by RN. Information reviewed withpatient. Verbalizes understanding. --15:56 09/04/20 Amparo Cheney R.N.15:57 09/04/2020 [facility] * Drip IV 1000 mg --15:57 09/04/20 Amparo Cheney R.N.16:09 09/04/20. BP: 121/65. MAP: 83. HR: 54. RR: 16. O2 saturation: 98%. --16:10 09/04/20 [facility] [id number] 09/04/2020 [facility] Drip IV Discontinued: completed. Total amount infused: 100 mL. IV patencyestablished. IV site checked: no pain, redness, or swelling. IV flushed thoroughly. --16:22 09/04/20 Amparo Cheney R.N.16:22 09/04/2020 Started 1 gm of ROCEPHIN (1GM/50ML) (cefTRIAXone Sodium) IVPB in bag #1 50 mL;at 100 mL/hr over 30 minute(s) via sit e #1. via IV pump. Allergies verified and confirmed 5 rights. IVpatency established. IV site checked: no pain, redness, or swelling. IV flushed thoroughly pre- andpost-medication administration. Information reviewed with patient. --16:22 09/04/20 Amparo Cheney R.N.Reassessment after medication administered and fluids administered. She is calm. Overall patient statusis worse- she states feels worse. Patient transported to [place] by wheelchair with biological science technician. --16: Amparo Cheney R.N.17:05 09/04/20. BP: 129/73. MAP: 91. HR: 57. RR: 24. O2 saturation: 96%. --17:05 09/04/20 [facility] [id number] 09/04/2020 Morphine IVP 4 mg given over 3 minute(s) via site #1. Allergies verified and confirmed 5rights. IV patency established. IV site checked: no pain, redness, or swelling. IV flushed thoroughly pre-and post- medication administration. IVP given by RN. Information reviewed with patient. --17:13 09/04/20 4 Clinical Report - Nurses [facility] Emergency Department [address] [place] [address] Phone #: ext- [phone] 09/04/2020 14:13 Patient: KATH SCHAEFER Sex: F : 2000 Age: 20y Amparo Cheney R.N. 17:32 09/04/2020 ROCEPHIN (1GM/50ML) IVPB via IV site #1 Discontinued: completed. Total amount infused: 50 mL. IV patency established. IV site checked: no pain, redness, or swelling. IV flushed thoroughly. --17:32 09/04/20 Amparo Cheney R.N. Reassessment after medication administered. She is calm and resting quietly. Overall patient status is improved. --17:34 09/04/20 Amparo Cheney R.N. 17:39 09/04/2020 IV Fluids NS via IV site #1 Discontinued: completed. Total amount infused: 500 mL. IV patency established. IV site checked: no pain, redness, or swelling. IV flushed thoroughly. --17:39 09/04/20 Amparo Cheney R.N. 18:22 09/04/2020 Site #1 removed upon discharge. Bandaid applied. --18:22 09/04/20 Amparo Cheney R.N.DISPOSITION / DISCHARGE 18:03 09/04/20. BP: 108/63. MAP: 78. HR: 72. RR: 16. O2 saturation: 100%. --18:03 09/04/20 [facility] Tech 18:03 09/04/20. Temp: 98.1 F. Pain level now: 12/02. --18:03 09/04/20 [facility] Tech1 Departure time: 18:32 09/04/2020. No learning barriers present. Discharge instructions provided and reviewed with the patient. Reviewed medication(s). Prescription(s) sent electronically to pharmacy. Reviewed wound care instructions. Reviewed referral to an truck hopper and a primary care physician. Activity restrictions (rest) reviewed. Work note given (x 3 days). Patient verbalized understanding. Written instructions provided in Sammarinese. --18:32 09/04/20 Amparo Cheney R.N.Locked/Released at 09/04/2020 18:32 by Amparo Cheney R.N. Name Value Range Interpretation Code Description Data Gini rce(s) Supporting Document(s) ID Date Data Source [id number] 09/04/2020 02:28:00 PM [facility] 1 Clinical Report - Physicians/Mid Levels [facility] Emergency Department [address] [place] [address] Phone #: ext- [phone] 09/04/2020 14:13 [id number] Sex[facility] F : 2000 Age: 20y Time Seen: 14:56 09/04/2020; initial patient contact, initial documentation. Arrived- By private vehicle. Historian- patient. Disposition decision: 18:16 09/04/2020.HISTORY OF PRESENT ILLNESS Chief Complaint: ABDOMINAL PAIN. It is described as "pain" and sharp and it is described as located in the right lower quadrant and left lower quadrant and in the lower abdomen. This started about 5 days ago and is still present. The pat ient has had nausea. No loss of appetite or vomiting. (Pt says she had an ectopic and had her left fallopian tube removed here on the 5Feb. Sts she was admitted and discharged approx 2 days later (Aug). She says since then she has been having pain and swelling to her groin. She has been taking prescribed Percocet and ibuprofen but has run out. She says she is unable to sleep because of the pain. Also, she has 4 shital to the top of her head that were placed here 25Jan that she believes need to come out.). No recent travel. Similar symptoms previously. None. Recent medical care: The patient was seen recently at this facility in the emergency department and hospitalized.REVIEW OF SYSTEMS No constipation, black stools, hematemesis, difficulty with urination or pain with urination. No urinary frequency, bloody stools, fever, headache or sore throat. No blurred vision, chest pain, difficulty breathing, cough or joint pain. No skin rash, chills or back pain. Last bowel movement: today. All other systems reviewed and are negative.PAST HISTORY See nurses notes. Problems: Drug Poisoning. Ectopic . OB History. Laceration. Depression. Abscess. Anemia. Chlamydia. Anxiety Reaction. Other Disease. 2 Clinical Report - Physicians/Mid Levels [facility] Emergency Department [address] [place] [address] Phone #: ext- [phone] 09/04/2020 14:13 Patient: KATH SCHAEFER Sex: F : 2000 Age: 20y Threatened . Vaginal Discharge. Vomiting. Vaginitis. Suicide Attempt. Pneumonia. Pelvic Pain. Recent Travel. . Post-Op Complications. UTI - Urinary Tract Infection. Additional Surgeries: . Ectopic pregancy. Left fallopian tube removal. Right fallopian tube removed. Tube removal after ectopic . Medications: None. Allergies: No Known Drug Allergy.SOCIAL HISTORY Never smoker. No alcohol use or drug use.ADDITIONAL NOTES The nursing notes have been reviewed.PHYSICAL EXAM Vital Signs: 09/04/2020 14:15 BP: 132/80. MAP: 97. HR: 99. RR: 18. O2 saturation: 99%. Temp: 97.3 F. Pain level now: 05/04. Have been reviewed. Oxygen saturation normal. Appearance: Alert. Oriented X3. No acute distress. ENT: Voice normal. Neck: Normal inspection. Neck supple. CVS: Normal heart rate and rhythm. No JVD present. Pulses normal. Capillary refill normal. Strong peripheral pulses. Heart sounds normal. Pulses: right radial 2+; left radial 2+; right dorsalis pedis 2+; left dorsalis pedis 2+; right posterior tibial 2+; left posterior tibial 2+. Respiratory: Chest normal on inspection. No respiratory distress. Unlabored respirations. Lungs clear. Good chest movement. Breath sounds normal and equal. Chest nontender. Abdomen: Soft. Moderate tenderness in the right lower quadrant, suprapubic area and left lower quadrant. Bowel sounds normal. No distention. Surgical scars. Wll healing. Noted echymosis of abd. Noted slgiht warmth of suprapubic region near echymosis. 3 Clinical Report - Physicians/Mid Levels [facility] Emergency Department [address] [place] [address] Phone #: ext- [phone] 09/04/2020 14:13 [id number] Sex[facility] F : 2000 Age: 20y Skin: Skin warm and dry. Extremities: Extremities exhibit normal ROM. No lower extremity edema. No calf tenderness. No lower extremity edema. Neuro: Awake. Alert. Mood/affect normal. Speech normal. No motor deficit. No sensory deficit. Psych: Cognition normal. Thought process and content normal. Insight and judgement normal.LABS, X-RAYS, AND EKG Laboratory Tests: Culture, Urine: (NII: 09/04/2020 16:10) ( MsgRcvd 09/04/2020 16:13) Canceled SOURCE: Urine, Clean Catch CBC w Diff: (NII: 09/04/2020 15:40) ( MsgRcvd 09/04/2020 16:06) Final results Test Result Flag Units (Reference) CBC W/AUTOMATED DIFF COMPLETE BLOOD COUNT WBC 5.6 10/uL (4.2 - 11.0) RBC 3.11 L 10/uL (4.20 - 5.40) HEMOGLOBIN 9.1 L g/dL (12.0 - 16.0) HEMATOCRIT 28.6 L % (37.0 - 47.0) MCV 92.0 fL (81.0 - 101) MCH 29.3 pg (27.0 - 34.0) MCHC 31.8 g/dL (31.0 - 36.0) RDW 12.8 % (11.5 - 14.5) PLATELETS 256 10/uL (150 - 450) MPV 9.6 fL (7.4 - 10.4) NEUT 59.6 % (37.0 - 80.0) LYMPH 26.2 % (25.0 - 40.0) MONO 7.4 % (3.0 - 8.0) EOS 6.0 % (0.0 - 7.0) BASO 0.4 % (0.0 - 2.5) %IG 0.4 H % (0.0 - 0.0) %NRBC 0.0 % (0.0 - 0.0) #NEUT 3.36 10/uL (2.00 - 6.90) #LYMPH 1.48 10/uL (0.60 - 3.40) #MONO 0.42 10/uL (0.00 - 0.90) #EOS 0.34 10/uL (0.00 - 0.70) #BASO 0.02 10/uL (0.00 - 0.20) #IG 0.02 10/uL (0.00 - 0.10) #NRBC 0.00 10/uL (0.00 - 0.00) MANUAL DIFF NOT INDICATED RBC MORPH NOT INDICATED CMP: (NII: 09/04/2020 15:40) ( MsgRcvd 09/04/2020 16:37) Final results Test Result Flag Units (Reference) COMPREHENSIVE METABOLIC PANEL COMPREHENSIVE METABOLIC PANEL SODIUM 137 mEq/L (134 - 153) POTASSIUM 4.3 mEq/L (3.6 - 5.0) CHLORIDE 104 mEq/L (98 - 107) CO2 28 MEQ/L (22 - 30) GLUCOSE 95 MG/DL (70 - 99) BUN 6 L MG/DL (7 - 21) CREATININE 0.4 L MG/DL (0.7 - 1.5) 4 Clinical Report - Physicians/Mid Levels [facility] Emergency Department [address] [place] [address] Phone #: ext- [phone] 09/04/2020 14:13 Patient: KATH SCHAEFER Sex: F : 2000 Age: 20y BUN/CREAT 15 (8 - 27) TOTAL PROTEIN 6.6 G/DL (6.3 - 8.2) ALBUMIN 3.6 L G/DL (3.9 - 5.0) GLOBULIN 3.0 GM/DL (2.4 - 3.2) A/G RATIO 1.2 (0.8 - 2.0) CALCIUM 9.0 MG/DL (8.4 - 10.2) TOTAL BILI <0.7 MG/DL (0.2 - 1.3) ALKALINE PHOS 52 U/L (38 - 126) SGOT/AST 12 U/L (5 - 40) SGPT/ALT 7 U/L (7 - 56) ANION GAP 5.0 L mmol/L (8.0 - 16.0) AGE 20 yrs NON-AA GFR >60 mL/min AFR AMER GFR >60 mL/min Male GFR Interprentation 20-49 yrs >60 mL/min Normal 50-59 yrs >56 mL/min Normal 60-69 yrs >49 mL/min Normal 70-79yrs >42 mL/min Normal 80 and above >35 mL/min Normal Female GFR Interpretation 20-39 yrs >60 mL/min Normal 40-49 yrs >58 mL/min Normal 50-59 yrs >51 mL/min Normal 60-69 yrs >45 mL/min Normal 70-79 yrs >39 mL/min Normal 80 and above >32 mL/min Normal Lipase: (NII: 09/04/2020 15:40) ( MsgRcvd 09/04/2020 16:34) Final results Test Result Flag Units (Reference) LIPASE 17 U/L (13 - 60) Urinalysis: (NII: 09/04/2020 15:00) ( MsgRcvd 09/04/2020 15:40) Final results Test Result Flag Units (Reference) URINALYSIS URINALYSIS SOURCE R COLOR orange ( NORMAL: Yello CLARITY turbid (NORMAL: Clear SPEC GRAVITY 1.015 (1.001 - 1.030 pH 8 (5 - 9) GLUCOSE NORM (NORMAL: Negat BILIRUBIN NEG (NORMAL: Negat KETONE NEG (NORMAL: Negat PROTEIN 100 A (NORMAL: Negat NITRITE NEG (NORMAL: Negat BLOOD 250 A (NORMAL: Negat LEUK EST 100 A (NORMAL: Negat UROBILINOGEN NOR (less than 1.0 MICROSCOPIC See Below WBC 15 - 20 A (NORMAL: NONE RBC 30 - 40 A (NORMAL: NONE EPITHELIAL FEW (NORMAL: NONE BACTERIA Trace (NORMAL: NONE Lactic Acid: (NII: 09/04/2020 15:40) ( MsgRcvd 09/04/2020 15:56) Final results Test Result Flag Units (Reference) LACTIC ACID 0.9 MMOL/L (0.2 - 2.2).PROGRESS AND PROCEDURES 5 Clinical Report - Physicians/Mid Levels [facility] Emergency Department [address] [place] [address] Phone #: ext- [phone] 09/04/2020 14:13 Patient: KATH SCHAEFER Sex: F : 2000 Age: 20ySuture Removal: The wound is located on the scalp. Examination of wound r eveals normal healing, notenderness and no infection. - 4- shital removed by me. Topical antibiotic applied.Course of Care: VSS, NAD, AOx3, interacting well and appropriately, no use of accessory muscle, able tospeak full sentences, stable, non-toxic looking.Enter room and pt lying peacefully in bed in NAD. Patient stable. Denies any new issues, concerns, orcomplaints.Due to hx of recent surgyer and pain and NPO: will order IV ofirmevPE dmeos NV intact b/l UE and LE. Noted TTP ofhte abd; noted surgicla scars; noted echymosis ofsurgical scar area. Noted slight warms of suprapubic region, near echymosis. Will order labs andimaigng for further eval. Pending results.Enter room and pt sts still has pain. Attempted IV Ofirmev with no improvement. WIll order pain meds.Reviewed results.Contacted OBGYN and disucssed wiht Dr. Hewitt. agrees with abx use and will see pt in the clinic onFriday.Enter room and patient lying peacefully in bed in NAD. Patient stable. Denies any new issues, concerns,or complaints.Removed shital. Pt tolerated well and is appreciative.Discussed results with pt. Discussed tx plan with pt. Discussed and counseled on stable condition.Discussed importance of a f/u with PCP. Discussed return to ER criteria. Answered their questions.Indicates that they understand, agree, and will comply with above. Denies any new questions orconcerns. Patient has capacity to understand.Discharge decision based on the following: patient's condition is stable; patient's exam is stable; socialsupport is adequate; transportation is available; follow-up is available.Discussed of OTC Motrin and Tylenol to control inflammation and pain management. Informed to followdirections on bottle that are appropriate for age and/or weight.This report was requested by: Castillo Boggs Reference #: [id number]' PrescriptionsPatient Name: Kath SchaeferBirth Date: 2000Address: [address] [address]Evw: Female 6 Clinical Report - Physicians/Mid [facility] Emergency Department [address] [place] [address] Phone #: ext- [phone] 09/04/2020 14:13 Patient: KATH SCHAEFER Sex: F : 2000 Age: 20y Rx Written Rx Dispensed Drug Quantity Days Supply Prescriber Name Payment Method Dispenser 11/16/2019 11/16/2019 hydrocodone- acetaminophen 5-325 mg tablet 8 2 Dillon Eaton Medicaid [facility] #13 11/13/2019 11/14/2019 oxycodone-acetaminophen 5-325 mg tablet 20 4 Pau Erickson MD Medicaid [facility] #13 Patient Name: Kath SchaeferBirth Date: 2000 Address: [address] [place] [id number]: Female Rx Written Rx Dispensed Drug Quantity Days Supply Prescriber Name Payment Method Dispenser 08/31/2020 08/31/2020 oxycodone-acetaminophen 5-325 mg tab 18 3 Juan Johnson MD Medicaid [facility] #6. Disposition: Discharged home in good and improved condition. Condition: good and stable.CLINICAL IMPRESSION Acute suprapubic abdominal pain of unknown cause. Acute urinary tract infection with cystitis and hematuria. Post-operative complication (Post Op pain s/p tube removal s/p ectopic).INSTRUCTIONS Take Tylenol (Acetaminophen) or Motrin (Ibuprofen) as needed for fever control. Take medication according to label instructions. No bending or stooping, prolonged sitting or lifting greater than 5 lbs for 1 weeks. No strenuous activity for one weeks. Do not work for three days. (Recommend to utilize OTC Motrin and Tylenol to control inflammation and pain management. Recommend to follow the instructions on the bottle and not to exceed. Recommend to utilize OTC antibiotic ointment to help control possible skin infection and help promote wound healing and care.). Warnings: GENERAL WARNINGS: Return or contact your physician immediately if your condition worsens or changes unexpectedly, if not improving as expected, or if other problems arise. Your Current Medications: . No home medication. Prescription monitor program consulted by me. Prescription does not exceed state maximum supply of medications Prescription Medications: 7 Clinical Report - Physicians/Mid Levels [facility] Emergency Department [address] [place] [address] Phone #: ext- [phone] 09/04/2020 14:13 Patient: KATH SCHAEFER Sex: F : 2000 Age: 20y Percocet 5 mg-325 mg tablet 1 tablet three times a day for 3 days -- Dispense 9 tablet. Refills: 0. Substitution permitted. Note to Pharmacy - post op pain. Pharmacy - [facility] #[id number] - [id number] ; [place] [address]. . cephalexin 500 mg capsule Take 1 capsule three times a day for 7 days -- Dispense 21 capsule. Refills: 0. Substitution permitted. Pharmacy [facility] #86 - [address] ; [place] [address]. . Zofran 4 mg tablet Take 1 tablet three times a day for 3 days -- Dispense 9 tablet. Refills: 0. Substitution permitted. [facility] #89 - [id number] ; [place] [address]. . Follow-up: Return to the emergency department as needed. Follow up with your healthcare provider in about two days if not better. Call for an appointment. Understanding of the discharge instructions verbalized by patient. Follow-up with: [facility], , , [address] [place] [address], [facility] Follow up. Call for the next available appointment. Reason for referral: evaluation, treatment and To establish care. Follow-up with: [facility], , , [address] [place] [address], [facility] Follow up Wednesday. Call for an appointment. Reason for referral: Dr. Hewitt indicated he wanted to see pt on Wednesday.(Electronically signed by Meng Ritchie 09/05/2020 21:50) Name Value Range Interpretation Code Description Data Gini rce(s) Supporting Document(s) ID Date Data Source [id number] 09/05/2020 10:16:00 AM EST [facility] [address] [place] [address] PHONE: [phone] FAX: [phone] Name .................. : SILVANO Low Acct Number.................. : [id number] ROOM. ................. : VT-02 MR Number ................... : [id number] Stay type ............. : E/R Discharge Date......... ... : 09/04/20 Admit Date ......... : 09/04/20 Admit Phys .................... : TRAM WALL Date of ....... : 2000 Family Phys ................... : NO PCP Phone .................. : [phone] Age ................................ : 20 Film# .................. .:[id number] Sex ................................. : F Unsigned transcriptions are preliminary reports and do not represent a medical or legal document CT ABD & PELVIS W/ IV ONLY [id number] COMPLETE:09/04/20 18:25 [facility] Reason(s): PENDING CMP: abd pain s/p surgery [address] SCAN OF THE ABDOMEN AND PELVIS WITH CONTRAST: COMPARISON: 11/16/19 TECHNIQUE: Imaging performed following intravenous contrast administration. FINDINGS: The liver is mildly enlarged. There is mild fatty infiltration of the liver. The spleen is homogeneous and not enlarged. The gallbladder, pancreas, adrenal glands and kidneys are unremarkable. A small amount of pneumoperitoneum is seen along with subcutaneous emphysema in the anterior abdominal wall which corresponds to a stated history of recent surgery. Acute bowel pathology, abscess or ascites is not seen. A small amount of free fluid is seen along the floor of the pelvis that is within normal limits, given recent intra-abdominal surgery. The uterus, adnexa and urinary bladder are unremarkable. There is no acute osseous abnormality. The lung bases are clear. IMPRESSION: Pneumoperitoneum, small amount of fluid along the floor of the pelvis and air in the anterior abdominal wall that is explained by recent surgery. Acute bowel pathology not seen. Normal appendix was seen which excludes acute appendicitis. Fatty infiltration of the liver and mild hepatomegaly. While performing the above CT examination, radiation dose reduction was accomplished utilizing automated exposure control, adjusting of the mA and kV based on the patient's body size and/or the use of imperative reconstructive techniques. CT dose: 674 .5 mGycm Contrast agent in mL: 75 Isovue 370 Page 1 of 2 [facility] [address] [place] [address] PHONE: [phone] FAX: [phone] Name .................. : SILVANO LAGUERREIE Devante Acct Number.................. : [id number] ROOM. ................. : VT-02 MR Number ................... : [id number] Stay type ............. : E/R Discharge Date......... ... : 09/04/20 Admit Date ......... : 09/04/20 Admit Phys .................... : TRAM WALL Date of ....... : 2000 Family Phys ................... : NO PCP Phone .................. : [phone] Age ................................ : 20 Film# .................. .:[id number] Sex ................................. : F Unsigned transcriptions are preliminary reports and do not represent a medical or legal document CT ABD & PELVIS W/ IV ONLY [id number] COMPLETE:09/04/20 18:25 [facility] 4019 Reason(s): PENDING CMP: abd pain s/p surgery 4 days ago. Method of administration: Intravenous Electronically Reviewed and Signed By Jodie Donahue MD , 09/05/20 10:16, KGG Transcribe Initials: DZ , Transcribe Date: 09/04/20 22:58, Dictation Date: Copy for: JASBIR SALGADOLUCY via fax Copy for: EMERGENCY DEPT via modem Copy for: 710 MED REC DISCHARGED Page 2 of 2 Name Value Range Interpretation Code Description Data Gini rce(s) Supporting Document(s) ID Date Data Source [id number] 09/04/2020 04:37:00 PM EST [facility] Name Value Range Interpretation Code Description Data Gini rce(s) Supporting Document(s) COMPREHENSIVE METABOLIC PANEL [facility] COMPREHENSIVE METABOLIC PANEL Sodium [Moles/volume] in Serum or Plasma 137 mEq/L 134 - 153 [facility] Potassium [Moles/volume] in Serum or Plasma 4.3 mEq/L 3.6 - 5.0 [facility] Chloride [Moles/volume] in Serum or Plasma 104 mEq/L 98 - 107 [facility] Carbon dioxide, total [Moles/volume] in Serum or Plasma 28 MEQ/L 22 - 30 [facility] Glucose [Mass/volume] in Serum or Plasma 95 MG/DL 70 - 99 [facility] BUN 6 MG/DL 7 - 21 L [facility] Creatinine [Mass/volume] in Serum or Plasma 0.4 MG/DL 0.7 - 1.5 L [facility] BUN/CREAT 15 8 - 27 [facility] Protein [Mass/volume] in Serum or Plasma 6.6 G/DL 6.3 - 8.2 [facility] Albumin [Mass/volume] in Serum or Plasma 3.6 G/DL 3.9 - 5.0 L [facility] Globulin [Mass/volume] in Serum by calculation 3.0 GM/DL 2.4 - 3.2 [facility] A/G RATIO 1.2 0.8 - 2.0 [facility] Calcium [Mass/volume] in Serum or Plasma 9.0 MG/DL 8.4 - 10.2 [facility] Bilirubin.total [Mass/volume] in Serum or Plasma <0.7 MG/DL 0.2 - 1.3 [facility] Alkaline phosphatase [Enzymatic activity/volume] in Serum or Plasma 52 U/L 38 - 126 [facility] Aspartate aminotransferase [Enzymatic activity/volume] in Serum or Plasma 12 U/L 5 - 40 [facility] Alanine aminotransferase [Enzymatic activity/volume] in Seru m or Plasma 7 U/L 7 - 56 [facility] Anion gap 3 in Serum or Plasma 5.0 mmol/L 8.0 - 16.0 L [facility] AGE 20 yrs [facility] al NON-AA GFR >60 mL/min [facility] AFR AMER GFR >60 mL/min [facility] spital Male GFR In terprentation 20-49 yrs >60 mL/min Normal 50-59 yrs >56 mL/min Normal 60-69 yrs >49 mL/min Normal 70-79yrs >42 mL/min Normal 80 and above >35 mL/min Normal Female GFR Interpretation 20-39 yrs >60 mL/min Normal 40-49 yrs >58 mL/min Normal 50-59 yrs >51 mL/min Normal 60-69 yrs >45 mL/min Normal 70-79 yrs >39 mL/min Normal 80 and above >32 mL/min Normal ID Date Data Source [id number] 09/04/2020 04:34:00 PM [facility] Name Value Range Interpretation Code Description Data Gini rce(s) Supporting Document(s) Lipase [Enzymatic activity/volume] in Serum or Plasma 17 U/L 13 - 60 [facility] ID Date Data Source [id number] 09/04/2020 04:06:00 PM [facility] Name Value Range Interpretation Code Description Data Gini rce(s) Supporting Document(s) CBC W/AUTOMATED DIFF [facility] COMPLETE BLOOD COUNT Leukocytes [#/volume] in Blood by Automated count 5.6 10^3/uL 4.2 - 1 1.0 [facility] Erythrocytes [#/volume] in Blood by Automated count 3.11 10^6/uL 4. 20 - 5.40 L [facility] Hemoglobin [Mass/volume] in Blood 9.1 g/dL 12.0 - 16.0 L [facility] Hematocrit [Volume Fraction] of Blood by Automated count 28.6 % 3 7.0 - 47.0 L [facility] Erythrocyte mean corpuscular volume [Entitic volume] by Auto mated count 92.0 fL 81.0 - 101 [facility] Erythrocyte mean corpuscular hemoglobin [Entitic mass] by Automated count 29.3 pg 27.0 - 34.0 [facility] Erythrocyte mean corpuscular hemoglobin concentration [Mass/volume] by Automated count 31.8 g/dL 31.0 - 36.0 [facility] Erythrocyte distribution width [Ratio] by Automated count 12.8 % 11.5 - 14.5 [facility] Platelets [#/volume] in Blood by Automated count 256 10^3/uL 150 - 45 0 [facility] Platelet mean volume [Entitic volume] in Blood by Automated count 9.6 fL 7.4 - 10.4 [facility] Neutrophils/100 leukocytes in Blood by Automated count 59.6 % 37. 0 - 80.0 [facility] Lymphocytes/100 leukocytes in Blood by Manual count 26.2 % 25.0 - 40.0 [facility] Monocytes/100 leukocytes in Blood by Automated count 7.4 % 3.0 - 8.0 [facility] Eosinophils/100 leukocytes in Blood by Automated count 6.0 % 0.0 - 7.0 [facility] Basophils/100 leukocytes in Blood by Automated count 0.4 % 0.0 - 2.5 [facility] %IG 0.4 % 0.0 - 0.0 H [facility] %NRBC 0.0 % 0.0 - 0.0 [facility] al Neutrophils [#/volume] in Blood by Automated count 3.36 10^3/uL 2.00 - 6.90 [facility] Lymphocytes [#/volume] in Blood by Automated count 1.48 10^3/uL 0.60 - 3.40 [facility] Monocytes [#/volume] in Blood by Automated count 0.42 10^3/uL 0.00 - 0.90 [facility] Eosinophils [#/volume] in Blood by Automated count 0.34 10^3/uL 0.00 - 0.70 [facility] Basophils [#/volume] in Blood by Automated count 0.02 10^3/uL 0.00 - 0.20 [facility] #IG 0.02 10^3/uL 0.00 - 0.10 [facility] H ospital #NRBC 0.00 10^3/uL 0.00 - 0.00 [facility] ospital MANUAL DIFF NOT INDICATED [facility] RBC MORPH NOT INDICATED [facility] spital ID Date Data Source [id number] 09/04/2020 03:55:00 PM EST [facility] Name Value Range Interpretation Code Description Data Gini rce(s) Supporting Document(s) Lactate [Moles/volume] in Serum or Plasma 0.9 MMOL/L 0.2 - 2.2 [facility] ID Date Data Source [id number] 09/09/2020 11:52:00 AM EST [facility] Name Value Range Interpretation Code Description Data Gini rce(s) Supporting Document(s) CULTURE URINE [facility] spital _CULTURE URINE_$$[id number]$$292521$$748408$$566008$$112059$$285385$$174374$$264969$$875904$$ 064800$$049316$$673255$$934208$$747978$$285755$$972138$$114890$$097498$$209333$$ 714098$$261062$$254981$$684441$$388813$$991858$$888220$$934734 -- Continued on next page --Patient: SILVANO Low Order: [id number] Page 2Culture: CULTURE URINE Status: Final ==== -- Continued on next page --Patient: SILVANO Low Order: [id number] Page 2Culture: CULTURE URINE Status: Prelim ===== -- Continued on next page --Patient: SILVANO Low Order: [id number] Page 2Culture: CULTURE URINE Status: Prelim =====$$[id number]$$[id number] DATE/TIME: 09/09/2020 10:06Culture: CULTURE URINE Status: FinalIsolate 1 Enterococcus faecalis Flag: A . . . . . . .710,000-25,000 colony forming units per mL Previous result entered on 09/08/2020 13:53 ET Microbiological testing to rule out the presence of possible pathogensis in progress. Previous result entered on 09/07/2020 09:09 ET Specimen has been received and testing has been initiated.Urine Culture,Comprehensive: [id number] faecalis Flag: APatient: SILVANO Low Order: [id number] Page 3Culture: CULTURE URINE Status: Final ISOLATE 1 Enterococcus faecalis Isolate 1Antibiotic SHERRI IntUnits ug/mL Ciprofloxacin S S . . . . . .185-9Levofloxacin S S . . . . . .75157- 8Nitrofurantoin S S . . . . . .363-2Penicillin S S . . . . . .6932-8Tetracycline R R . . . . . .496-0Vancomycin S S . . . . . .524-9P1 Test performed by: Results [facility] #: [id number] [address] [place] [address] [id number] [facility] [id number] Director : Aldair Hobbs MD NPI #:Writing Manager : 09/08/20.1602.XMT.SENT REF 09/09/20.0620.XMT.SENT REF 09/09/20.1152.XMT.SENT REF ID Date Data Source [id number] 09/04/2020 03:39:00 PM EST [facility] Name Value Range Interpretation Code Description Data Gini rce(s) Supporting Document(s) URINALYSIS [facility] amaya URINALYSIS SOURCE R [facility] COLOR orange NORMAL: Yellow [facility] CLARITY turbid NORMAL: Clear [facility] sp[facility] Specific gravity of Urine by Test strip 1.015 1.001 - 1.030 [facility] pH 8 5 - 9 [facility] Glucose [Mass/volume] in Urine by Test strip NORM NORMAL: [facility]at [facility] Bilirubin.total [Presence] in Urine by Test strip NEG NORMAL: Negative [facility] Ketones [Presence] in Urine by Test strip NEG NORMAL: Negative [facility] Protein [Mass/volume] in Urine by Test strip 100 NORMAL: Negat srinivasa A [facility] Nitrite [Presence] in Urine by Test strip NEG NORMAL: Negative [facility] BLOOD 250 NORMAL: Negative A [facility] Leukocyte esterase [Presence] in Urine by Test strip 100 KATHRIN L: Negative A [facility] Urobilinogen [Mass/volume] in Urine by Test strip NOR less epifanio n 1.0 mg/dL [facility] MICROSCOPIC See Below [facility] WBC 15 - 20 NORMAL: NONE SEEN A [facility] Erythrocytes [#/volume] in Urine by Test strip 30 - 40 NORMAL: NON E SEEN A [facility] EPITHELIAL FEW NORMAL: NONE SEEN [facility] Bacteria [Presence] in Urine sediment by Light microscopy Tr kanwal NORMAL: NONE SEEN [facility] ID Date Data Source [id number] 09/02/2020 10:43:00 AM EST [facility] [address] [place] [address] PHONE: [phone] FAX: [phone] Name .................. : SILVANO LAGUERREIE Devante Acct Number.................. : [id number] ROOM. ................. : TR-05 Number ................... : [id number] Stay type ............. : E/R Discharge Date......... ... : Admit Date ......... : 08/30/20 Admit Phys .................... : COONEYNORM Date of ....... : 2000 Family Phys ................... : NO PCP Phone .................. : [phone] Age ................................ : 20 Film# .................. .:[id number] Sex ................................. : F Unsigned transcriptions are preliminary reports and do not represent a medical or legal document US PELVIC [id number] COMPLETE:08/30/20 22:31 DLA 3735 Reason(s): Pelvic Pain US TRANSVAGINAL(NON OB) [id number] COMPLETE:08/30/20 22:31 DLA 3736 (REASON FOR OBS: pelvic pain TRANSVESICAL AND ENDOVAGINAL ULTRASOUND OF THE PELVIS: CLINICAL HISTORY: Pelvic pain. FINDINGS: Transvesical and endovaginal sonography does not demonstrate an intrauterine gestation. The endometrium is only measured transvesically, but transvesically, the endometrium is thickened to approximately 2.1 cm. There is no definitive intrauterine gestation. There does appear to be an adnexal mass to the left adnexa measuring approximately 4.8 x 3 x 5.1 cm. There is no significant free fluid. IMPRESSION: No evidence of an intrauterine gestation and thus the possibility of an early IUP, or ectopic is not excluded. Clinical correlation is advised as to the need for further evaluation as this study does not exclude ectopic. Electronically Reviewed and Signed By Kunal Park MD , 09/02/20 10:43, AML Transcribe Initials: DEAN , Transcribe Date: 08/30/20 23:57, Dictation Date: Copy for: EMERGENCY DEPT via [facility] Copy for: 710 MED REC DISCHARGED Page 1 of 1 Name Value Range Interpretation Code Description Data Gini rce(s) Supporting Document(s) ID Date Data Source [id number] 09/02/2020 10:43:00 AM [facility] [address] [place] [address] PHONE: [phone] FAX: [phone] Name .................. : SILVANO Low Acct Number.................. : [id number] ROOM. ................. : TR-05 MR Number ................... : [id number] Stay type ............. : E/R Discharge Date......... ... : Admit Date ......... : 08/30/20 Admit Phys .................... : COONEYNORM Date of ....... : 2000 Family Phys ................... : NO PCP Phone .................. : [phone] Age ................................ : 20 Film# .................. .:[id number] Sex ................................. : F Unsigned transcriptions are preliminary reports and do not represent a medical or legal document PELVIC [id number] COMPLETE:08/30/20 22:31 DLA 3735 Reason(s): Pelvic Pain US TRANSVAGINAL(NON OB) [id number] COMPLETE:08/30/20 22:31 DLA 3736 (REASON FOR OBS: pelvic pain TRANSVESICAL AND ENDOVAGINAL ULTRASOUND OF THE PELVIS: CLINICAL HISTORY: Pelvic pain. FINDINGS: Transvesical and endovaginal sonography does not demonstrate an intrauterine gestation. The endometrium is only measured transvesically, but transvesically, the endometrium is thickened to approximately 2.1 cm. There is no definitive intrauterine gestation. There does appear to be an adnexal mass to the left adnexa measuring approximately 4.8 x 3 x 5.1 cm. There is no significant free fluid. IMPRESSION: No evidence of an intrauterine gestation and thus the possibility of an early IUP, or ectopic is not excluded. Clinical correlation is advised as to the need for further evaluation as this study does not exclude ectopic. Electronically Reviewed and Signed By Kunal Park MD , 09/02/20 10:43, AML Transcribe Initials: DEAN , Transcribe Date: 08/30/20 23:57, Dictation Date: Copy for: EMERGENCY DEPT via modem Copy for: 710 MED REC DISCHARGED Page 1 of 1 Name Value Range Interpretation Code Description Data Gini rce(s) Supporting Document(s) ID Date Data Source [id number] 09/01/2020 12:29:00 [place] [address] OPERATIVE SUMMARYNAME: SILVANO Low DATE OF : 2000ATTENDING PHYS: JUAN Hewitt MD DATE: 08/30/20 MR#: [id number] PROCEDURE: 08/31/20PREOPERATIVE DIAGNOSIS: 1. Severe pelvic pain. 2. Positive pelvic mass of approximately 5 cm as diagnosed by ultrasound. 3. Positive test.POSTOPERATIVE DIAGNOSIS: 1. Severe pelvic pain. 2. Positive pelvic mass of approximately 5 cm as diagnosed by ultrasound. 3. Positive test. 4. Ruptured left ectopic and hemoperitoneum.FINDINGS: Ruptured left ectopic and hemoperitoneum.PROCEDURE: 1. Examination under anesthesia. 2. Laparoscopic left salpingectomy and pelvic lavage. 3. Uterine curettage.SURGEON: INES [facility] CARE PROVIDER: Dr. Cadena.TYPE OF ANESTHESIA: General.ESTIMATED BLOOD LOSS: 200 cc.IV FLUIDS USED: 1000 cc of LRURINE OUTPUT: approximately 300 ccPELVIC LAVAGE FLUID USED: 2400 cc of normal saline.DRAINAGE: None.IMPLANTS: None. [address] [place] [address] OPERATIVE SUMMARYNAME: SILVANO Low DATE OF : 2000ATTENDING PHYS: JUAN Hewitt MD DATE: 08/30/20 MR#: [id number]: None.SPECIMEN: Left fallopian tube and uterine curetting.BLOOD ADMINISTERED: NoneCOMPLICATIONS: NoneDESCRIPTION OF PROCEDURE: After consent was reviewed with the patient and IV started,she was taken to the operating room where general anesthesia was administered without anydifficulty. A Warren catheter was inserted, pneumatic stockings applied and patient was then placedin the dorsal lithotomy position and prepped and draped in a normal sterile fashion. Patient wasthen examined under anesthesia. The uterus was of normal size. No adnexal mass was appreciated.A weighted speculum was then placed in the vagina and the anterior vaginal wall was retracted.The anterior aspect of the cervix was grasped with a toothed tenaculum. The cervical os was thendilated and uterine curettage was then performed. A scant amount of tissue was obtained. TheHUMI catheter was then inserted into the uterus via the cervix. The balloon was then inflated andthis was used as a means of manipulating the uterus. The tenaculum was removed. No bleeding wasnoted from the site of its insertion and this was followed by the weighted speculum. Attention wasthen turned to the patient's abdomen where a 10 mm intraumbilical incision was made. Using theVeress needle, the abdomen was then inflated with approximately 3 liters of CO2 gas. The 10 mmtrocar with the Visiport was then advanced into the patient's abdomen under direct visualization.The Visiport was then removed and the laparoscopy inserted and intraperitoneal placement wasconfirmed. On surveying the patient's abdomen, approximately 200-300 cc of blood was noted inthe pelvis. A second incision was then made on the left lateral aspect of the patient's abdomen andthe 8 mm trocar with the AirSeal device was then advanced into the patient's abdomen under directvisualization. A third incision was made on the right lateral aspect of the patient's abdomen and a 5mm trocar and sleeve was advanced into the patient's abdomen under direct visualization. Thepatient was then placed in the Trendelenburg position. The suction device was then placed in theleft port and blood that was seen in the pelvis was suctioned. Pelvic lavage was also performed.The endoscopic grasper was placed in the right port and the left tube was grasped in the cornualregion. Using the harmonic scalpel that was placed in the left port, the left tube was then severedfrom the mesosalpinx. After this procedure was completed, adequate hemostasis was visualized.The scope was then taken out of the umbilical port and the 4 mm scope was placed in the left portand the endoscopic bag was placed in the umbilical port. Using the endoscopic grasper that was inthe right port, the specimen was retrieved and placed in the endoscopic bag and this was then takenout of the pelvis via the umbilical port. Pelvic lavage again was then performed and the patient wasthen placed in the reverse Trendelenburg position and again, pelvic lavage was performed. Please [address] [place] [address] OPERATIVE SUMMARYNAME: SILVANO Low DATE OF : 2000ATTENDING PHYS: JUAN Hewitt MD DATE: 08/30/20 MR#: [id number] that after the instruments were inserted into the patient's abdomen, she was placed in theTrendelenburg position and the surgery was done while the patient was in the Trendelenburgposition. All instruments were then removed under direct visualization and all incisional sites wereclosed using 2-0 Vicryl suture. An approximately 3 cc of a mixture of 0.5% Marcaine with 2%lidocaine with epinephrine was injected at each incisional site. Dermabond was then used to coverthe incision sites. The HUMI catheter was then removed from the vagina. The patient was thentransferred to the recovery room in stable condition. Lap and instrument counts were correct x2.DD: JUAN Hewitt MD 08/31/20 11:33DT: BLANQUITA 09/01/20 00:09DS: JUAN Hewitt MD 09/01/20 19:29 3 Name Value Range Interpretation Code Description Data Gini rce(s) Supporting Document(s) ID Date Data Source [id number] 08/31/2020 09:05:00 AM EST [facility] ([facility]) Name Value Range Interpretation Code Description Data Gini rce(s) Supporting Document(s) Choriogonadotropin.beta subunit [Moles/volume] in Serum or P lasma 1613.0 mIU/mL [facility] ([facility]) Interpretation: Less than 5 mU/mL: Negative 6-10 mU/mL: Borderline (suggest repeat i n 48 hours) >10: Positive Approx HCG range (mU/mL) Weeks post LMP 5.4-708 mU/mL 3-4 Weeks 217-48166 mU/mL 5-6 Weeks 4059-459215 mU/mL 7-8 Weeks 51689-231585 mU/mL 9-10 Weeks 73164-62019 mU/mL 12-14 Weeks 85279-39741 mU/mL 15-16 Weeks 8240-66743 mU/mL 17-18 Weeks ID Date Data Source [id number] 08/31/2020 09:44:00 AM [facility] Name Value Range Interpretation Code Description Data Gini rce(s) Supporting Document(s) Choriogonadotropin.intact [Units/volume] in Serum or Plasma 1613.0 mI U/mL [facility] Interpr etation: Less than 5 mU/mL: Negative 6-10 mU/mL: Borderline (suggest repeat in 48 hours) >10: Positive Approx HCG range (mU/mL) Weeks post LMP 5.4-708 mU/mL 3-4 Weeks 217-67414 mU/mL 5-6 Weeks 4059-737616 mU/mL 7-8 Weeks 56413-532666 mU/mL 9-10 Weeks 97683-79934 mU/mL 12-14 Weeks 43758-77451 mU/mL 15-16 Weeks 8240- 89335 mU/mL 17-18 Weeks ID Date Data Source [id number] 08/31/2020 07:35:00 AM EST [facility] ([facility]) Name Value Range Interpretation Code Description Data Gini rce(s) Supporting Document(s) Chlamydia trachomatis,Erica Laboratory test result [facility] ([facility]) {SOURCE: Genital Neisseria gonorrhoeae,Erica Laboratory test result [facility] ([facility]) {SOURCE: Genital Source: Laboratory test result [facility] ([facility]) {SOURCE: Genital ID Date Data Source [id number] 09/02/2020 02:38:00 PM EST [facility] Name Value Range Interpretation Code Description Data Gini rce(s) Supporting Document(s) SOURCE: Genital [facility] Chlamydia trachomatis rRNA [Presence] in Unspecified specimen by Probe and target amplification method Negative Negative [facility] Neisseria gonorrhoeae rRNA [Presence] in Unspecified specimen by Probe and target amplification method Negative Negative [facility] ID Date Data Source [id number] 08/30/2020 08:54:00 PM EST [facility] 1 OrderSheet [facility] Emergency Department [address] [place] [address] Phone #: ext- [phone] 08/30/2020 20:54 Patient: KATH SCHAEFER Sex: F : 2000 Age: 20yWEIGHT:86.1 kg HEIGHT:64 inches BMI:32.6ALLERGIES: No Known Drug AllergyCHIEF COMPLAINT: pelvic painDIAGNOSIS: C/O pelvic painLAB ORDERSOrder Description Priority Entered Acknowledged InitialedHCG Serum Quant STAT 21:09 08/30/2020 21:19 Kathrin Andersen MD; Linus RNUrinalysis (Clean STAT 21:09 08/30/2020 21:19 JavedCatch) Kathrin Guthrie MD; Linus RNCBC w Diff STAT 22:39 08/30/2020 Ack'd: 22:51 23:07 Pedro Wilkinson Norma MD; Carolin Wilkinson STAT 22:39 08/30/2020 Ack'd: 22:51 23:07 Pedro Wilkinson Norma MD; Carolin Wilkinson Rh STAT 22:39 08/30/2020 Ack'd: 22:51 23:07 Pedro Wilkinson Norma MD; Carolin Wilkinson-- (Serum STAT 22:39 08/30/2020 Ack'd: 22:51 23:07 Minh,Progesterone) Kathrin Guthrie MD; Carolin Wilkinson(Blood)COVID-19 CAH (Not STAT 22:48 08/30/2020 22:49 Minh,Symptomatic as Kathrin Guthrie MD; Redefined by [facility])(08/30/20) (First Test)(Hospitalized)() (NotResident inCongregate CareSetting) (NotEmployed inHealthcare Setting)DIAGNOSTIC STUDY ORDERSOrder Description Priority Entered Acknowledged InitialedUS Pelvis STAT 21:34 08/30/2020 21:39 Javed 2 OrderSheet [facility] Emergency Department [address] [place] [address] Phone #: ext- [phone] 08/30/2020 20:54 Patient: KATH SCHAEFER Sex: F : 2000 Age: 20y(Oxygen?(No)) Kathrin Guthrie MD; Linus RN NOTES: pelvic pain, please also r/o torsion Reason for Study: Pelvic PainMEDICATION/IV/DRIP/FLUID ORDERSOrder Description Priority Entered Acknowledged InitialedAcetaminophen IV 21:09 08/30/2020 21:25 [id number] mg (NOW x1, Kathrin Guthrie MD; Linus RNInfuse over 15minutes)Toradol IVP 30 mg 21:09 08/30/2020 21:25 Javed(NOW x1) Kathrin Guthrie MD; Linus RNMorphine IVP 2 mg 00:18 08/31/2020(NOW x1, HIGH Kathrin Guthrie MD;ALERTMEDICATION)GENERAL ORDERSOrder Description Priority Entered Acknowledged Initialed[Electronically signed by Carolin Wilkinson (00:34 08/31/2020)][Elect ronically signed by Kathrin Guthrie MD (06:48 08/31/2020)][Electronically locked by Carolin Wilkinson (00:34 08/31/2020)] Name Value Range Interpretation Code Description Data Gini rce(s) Supporting Document(s) ID Date Data Source [id number] 08/30/2020 08:54:00 PM [place] [address] Medication Reconciliation Report [facility] Emergency Department [address] [place] [address] Phone #: ext- [phone] 08/30/2020 20:54 Patient: KATH SCHAEFER Sex: F : 2000 Age: 20yWeight: 86.1 kgHeight/Length: 64 in.BMI: 32.6ALLERGIES: No Known Drug AllergyThe patient's Home Medications are listed below:NONE.The source(s) of the original Home Medication information:Not obtained.The following Medications were given to the patient in the Emergency Department:Toradol [IVP] IVP 30 mg, administered: :08/30/2020OFIRMEV Drip IV bolus 0, then 1000 MG, administered: :08/30/2020The following Medications were prescribed to the patient:None. Name Value Range Interpretation Code Description Data Gini rce(s) Supporting Document(s) ID Date Data Source [id number] 08/30/2020 08:54:00 PM [place] [address] Medication Administration Record [facility] Emergency Department [address] [place] [address] Phone #: ext- [phone] 08/30/2020 20:54 Patient: KATH SCHAEFER Sex: F : 2000 Age: 20yWeight: 86.1 kgHeight/Length: 64 inBMI: 32.6ALLERGIES: No Known Drug Allergy Date/Time Medication Administered Medication OrderedStart OFIRMEV * Acetaminophen IV 1000 mg (NOW21:08/30/2020 Dose: 1000 MG * Drip IV x1, Infuse over 15 minutes)Javed Barriga RN----Stop21:44 08/30/2020julissa Barriga RNGiven TORADOL [IVP] (KETOROLAC Toradol IVP 30 mg (NOW x1)21:25 08/30/2020 TROMETHAMINE)Javed Barriga RN Dose: 30 mg IVP Site: #1 right upper arm Name Value Range Interpretation Code Description Data Gini rce(s) Supporting Document(s) ID Date Data Source [id number] 08/30/2020 08:54:00 PM [facility] 1 General Instructions [facility] Emergency Department [address] [place] [address] Phone #: ext- [phone] 08/30/2020 20:54 Patient: KATH SCHAEFER Sex: F : 2000 Age: 20yPelvic pain.ectoptic versus ovarian torsion.(Electronically signed by Kathrin Guthrie MD 08/31/2020 06:48) Name Value Range Interpretation Code Description Data Gini rce(s) Supporting Document(s) ID Date Data Source [id number] 08/30/2020 08:54:00 PM [facility] 1 Clinical Report - Nurses [facility] Emergency Department [address] [place] [address] Phone #: ext- [phone] 08/30/2020 20:54 Patient: KATH SCHAEFER Sex: F : 2000 Age: 20yTRIAGEArrived by private vehicle. Historian: patient. Accompanied by family. ( Patient states she took atampon out about 15 minutes ago and had immediate pelvic and vaginal pain.).Acuity: LEVEL 3.Chief Complaint: PELVIC PAIN.Alert.This started just prior to arrival.Treatment FILTERS ASSEMBLER:None.SEPSIS SCREEN: SIRS SCREEN NEGATIVE. SEPSIS SCREEN NEGATIVE. No suspected or confirmedsigns of infection present. --20:58 08/30/20 Delisa Wilkinsonn20:55 08/30/20. BP: 144/84. HR: 68. RR: 20. O2 saturation: 100%. Temp: 97.4 F. Pain level now 05/04.--20:58 08/30/20 Carolin Wilkinson.Weight: 86.1 kg. Height/Length: 64 inches. BMI: 32.6. --20:57 08/30/20 Carolin Wilkinson.MedicationsNone. --20:58 08/30/20 Carolin Wilkinson.AllergiesNo Known Drug Allergy. --20:58 08/30/20 Carolin Wilkinsno.PROBLEMS:no known problems.ADDITIONAL SURGERIES:.Tube removal after ectopic . --20:59 08/30/20 Carolin Wilkinson.HistoryPAST MEDICAL HX: Last normal menstrual period now.SOCIAL HX: Never smoker. No alcohol use or drug use. She was offered HIV testing but declined.Patient education was provided. She was offered hepatitis C testing but declined. Patient education wasprovided. She has not traveled outside the [place]Infectious disease exposure: No infectious disease exposure. The patient was not exposed to Coronavirus. 2 Clinical Report - Nurses [facility] Emergency Department [address] [place] [address] Phone #: [phone] ext- [phone] 08/30/2020 20:54 Patient: KATH SCHAEFER Sex: F : 2000 Age: 20y Patient is not a known carrier of tuberculosis, hepatitis, HIV, MRSA or VRE. Patient is not a known carrier of CRE. SELF HARM ASSESSMENT: Self harm assessment was performed. The patient answered "no" to the question(s) "Have you recently felt down, depressed, or hopeless?", "Do you have thoughts of harming or killing yourself?" and "Do you have a plan for harming or killing yourself?". ABUSE ASSESSMENT: Abuse assessment. The patient had positive responses to the question(s) "Do you feel safe in your home?" and "Are you afraid to go home?". Abuse denied. No suspicion of abuse. No report of abuse. NUTRITIONAL RISK ASSESSMENT: The nutritional risk assessment revealed no deficiencies. FUNCTIONAL ASSESSMENT: Functional assessment: no impairments noted. LEARNING NEEDS ASSESSMENT: The learning needs assessment revealed no barriers. FALL RISK ASSESSMENT: Fall risk assessment completed. No risk factors identified. SKIN INTEGRITY ASSESSMENT: Skin integrity risk assessment completed. No skin integrity risk identified. --20:58 08/30/20 Carolin Wilkinson. Interventions Identification band on patient. --20:58 08/30/20 Carolin Wilkinson.PHYSICAL ASSESSMENTAmbulatory to room.GENERAL / NEURO / PSYCH: Alert. Oriented X 4. Appears in pain.HEENT: Mucous membranes are pink.RESPIRATORY: Respirations not labored. Breath sounds within normal limits.CVS: Normal heart rate and rhythm. Capillary refill less than 2 seconds.GI / : Abdomen soft. Abdominal tenderness in the suprapubic area and lower abdomen. Bowelsounds within normal limits.SKIN: Skin is warm and dry. --21:08/30/20 Javed Barriga RN.NURSING PROGRESS NOTESPatient gowned. Reassurance given. Two patient identifiers checked. Call light placed in reach. Siderails up x 2. Bed placed in lowest position. Brakes of bed on. Patient ready for evaluation. --20:5808/30/20 Carolin Wilkinson 21:20 08/30/2020 Site #1 started via IV in the right upper arm with an 20g angiocath, with aseptic technique and good blood return; one attempt. Blood drawn: rainbow set. Labeled in the presence of the patient and sent to the lab. Saline lock flushed with 10 mL saline. --21:08/30/20 Javed Barriga RN 3 Clinical Report - Nurses [facility] Emergency Department [address] [place] [address] Phone #: ext- [phone] 08/30/2020 2 0:54 Patient: KATH SCHAEFER Sex: F : 2000 Age: 20y 21:25 08/30/2020 Toradol (Ketorolac Tromethamine) IVP 30 mg given over 2 minute(s) via site #1. Allergies verified and confirmed 5 rights. IV patency established. IV site checked: no pain, redness, or swelling. IV flushed thoroughly pre- and post-medication administration. IVP given by RN. Information reviewed with patient including eliana bishop for taking this medication. Verbalizes understanding (diluted in 10 ml of nacl). --21:25 08/30/20 Javed Barriga RN 21:25 08/30/2020 [facility] * Drip IV 1000 MG INFUSED AT 400 ML/HR OVER 15 MINUTES --21:25 08/30/20 Javed Barriga RN 21:44 08/30/2020 [facility] Drip IV Discontinued: infused. Total amount infused: 100 mL. IV patency established. IV site checked: no pain, redness, or swelling. IV flushed thoroughly. --21:44 08/30/20 Javed Barriga RN late entry - 22:30 08/30/20. Reassurance given. Rounding: Pain: assessed pain level. Position: states comfortable. Personal care / toileting: denies toileting needs. Proximity of possessions / care items: call light within easy reach. Plug ins: checked status of equipment in use; located all cords, tubes, and lines to prevent fall hazard. --22:52 08/30/20 Carolin Wilkinson 22:55 08/30/20. BP: 120/62. HR: 89. RR: 17. O2 saturation: 99%. Pain level now 7/10. --22:56 08/30/20 Carolin Wilkinson late entry - 00:00 08/31/20. Reassurance given. Rounding: Pain: assessed pain level. Position: states comfortable. Personal care / toileting: denies toileting needs. Proximity of possessions / care items: call light within easy reach. Plug ins: checked status of equipment in use; located all cords, tubes, and lines to prevent fall hazard. --00:17 08/31/20 Carolin Wilkinson 00:16 08/31/20. BP: 118/58. HR: 84. RR: 18. O2 saturation: 100%. Pain level now 710. --00:17 08/31/20 Carolin Wilkinson.DISPOSITION / DISCHARGE late entry - 00:15 08/31/20. Admitted to Obstetrics/Gynecology. Transported via wheelchair by nurse with mask. Report was given to a nurse in person, at bedside and via visit overview. Report included patient's care, condition, vital signs, labs, medications and IV's. All questions were answered. Report was acknowledged and care was transferred. (Win Mendoza RN). Bed obtained and ready. Notified of admission (patient called s/o on hospital phone). Patient's personal items include: shirt and coat; items were placed in belongings bag and transported with the patient. --00:33 08/31/20 Carolin Wilkinson late entry - 00:15 08/31/2020 BP: 131/84. HR: 74. RR: 15. O2 saturation: 100%. Temp: 98.8 F. Pain level now 10. --00:33 08/31/20 Carolin Wilkinson Departure time: late entry - 00:25 08/31/2020. --00:33 08/31/20 Carolin Wilkinson. 4 Clinical Report - Nurses [facility] Emergency Department [address] [place] [address] Phone #: ext- [phone] 08/30/2020 20:54 Patient: KATH SCHAEFER Sex: F : 2000 Age: 20yLocked/Released at 08/31/2020 00:34 by Carolin Wilkinson Name Value Range Interpretation Code Description Data Gini rce(s) Supporting Document(s) ID Date Data Source [id number] 08/30/2020 08:54:00 PM EST [facility] 1 Clinical Report - Physicians/Mid Levels [facility] Emergency Department [address] [place] [address] Phone #: ext- [phone] 08/30/2020 20:54 Patient: KATH SCHAEFER Sex: F : 2000 Age: 20y Arrived- By private vehicle. Historian- patient. Disposition decision: 22:40 08/30/2020.HISTORY OF PRESENT ILLNESS Chief Complaint: PELVIC PAIN. This started just prior to arrival and still present. The symptoms are described as severe. Modifying factors- (everything makes it worse). Not relieved by anything. The patient has had abdominal pain and pelvic pain. No vaginal pain, low back pain, flank pain, pain with urination or urinary frequency. No urgency of urination or hematuria. (Patient states she took a tampon out about 15 minutes ago and had immediate pelvic and vaginal pain.). Similar symptoms previously. Recent medical care: Not recently seen/assessed.REVIEW OF SYSTEMSThe patient has had nausea. No vomiting, diarrhea, black stools, headache or fever. No chills, anorexia,eye discomfort or sore throat or throat. No cough, difficulty breathing, chest pain or skin rash or rash. Nochills, fever, photophobia, ear pain or nasal congestion. No sinus pain, cough, diarrhea, vomiting orabnormal bleeding. No urinary frequency, hematuria, back pain, d izziness or headache. No easybruising or difficulty with urination. The patient has had abdominal pain and nausea.PAST HISTORYSee nurses notes. Problems: Pelvic Pain. Medications: None. Allergies: No Known Drug Allergy.SOCIAL HISTORYNo drug use.ADDITIONAL NOTESThe nursing notes have been reviewed.PHYSICAL EXAM 2 Clinical Report - Physicians/Mid Levels [facility] Emergency Department [address] [place] [address] Phone #: ext- [phone] 08/30/2020 20:54 Patient: KATH SCHAEFER Sex: F : 2000 Age: 20yVital Signs: 08/30/2020 22:55 BP: 120/62. MAP: 81. HR: 89. RR: 17. O2 saturation: 99%.08/30/2020 20:55 BP: 144/84. MAP: 104. HR: 68. RR: 20. O2 satura tion: 100%. Temp: 97.4 F. Havebeen reviewed and appear to be correct. Blood pressure normal. Mean arterial pressure- normal. Heartrate normal. Respiratory rate normal. Temperature normal. Oxygen saturation normal.Appearance: Alert. Oriented X3. No acute distress.HEENT: Normal external inspection.ENT: Pharynx normal.Neck: Neck supple.CVS: Heart sounds normal.Respiratory: No respiratory distress. Painless inspiration. Breath sounds normal. Chest nontender.Abdomen: Soft. Moderate tenderness in the right lower quadrant, suprapubic area and left lowerquadrant (LLQ>RLQ). Bowel sounds normal.Back: Normal external inspection.Skin: Skin warm and dry. Normal skin color. No rash. Normal skin turgor.Extremities: Extremities nontender. No lower extremity edema.Neuro: Shane ented X 3. Mood/affect normal. No motor deficit.LABS, X-RAYS, AND EKGLaboratory Tests:COVID-19 CAH: (NII: 08/30/2020 22:48) ( MsgRcvd 08/30/2020 23:19) Final results Test Result Flag Units (Reference) COVID-19 NOT DETECTED COVID-19 REENTER NOT DETECTED { PROCEDURAL CONTROL VALID KIT LOT # _[id number] 08/30/20.AB . . . KIT EXP DATE _[id number] 08/30/20.AB . . . NORMAL RANGE IS NOT DETECTEDNEGATIVE RESULTSSHOULD BE TREATED PRESUMPTIVE AND, IF INCONSISTENT WITHCLINICAL SIGNS AND SYMPTOMS OR NECESSARY FOR PATIENTMANAGEMENT, SHOULD BETESTED WITH DIFFERENT AUTHORIZED OR CLEARED MOLECULAR TESTS. NEGATIVE RESULTSDO NOT [id number]-[id number]-2 INFECTION AND SHOULD NOT BE USED THE SOLE BASISFOR PATIENT MANAGEMENT DECISIONS.CBC w Diff: (NII: 08/30/2020 23:00) ( MsgRcvd 08/30/2020 23:17) Final results Test Result Flag Units (Reference) CBC W/AUTOMATED DIFF COMPLETE BLOOD COUNT WBC 13.0 H 10/uL (4.2 - 11.0) RBC 3.55 L 10/uL (4.20 - 5.40) HEMOGLOBIN 10.4 L g/dL (12.0 - 16.0) HEMATOCRIT 31.8 L % (37.0 - 47.0) MCV 89.6 fL (81.0 - 101) MCH 29.3 pg (27.0 - 34.0) MCHC 32.7 g/dL (31.0 - 36.0) RDW 12.6 % (11.5 - 14.5) PLATELETS 267 10/uL (150 - 450) MPV 9.6 fL (7.4 - 10.4) NEUT 84.0 H % (37.0 - 80.0) LYMPH 8.6 L % (25.0 - 40.0) MONO 5.8 % (3.0 - 8.0) EOS 0.8 % (0.0 - 7.0) BASO 0.3 % (0.0 - 2.5) %IG 0.5 H % (0.0 - 0.0) 3 Clinical Report - Physicians/Mid Levels [facility] Emergency Department [address] [place] [address] Phone #: ext- [phone] 08/30/2020 20:54 [id number] Sex[facility] F : 2000 Age: 20y % NRBC 0.0 % (0.0 - 0.0) #NEUT 10.90 H 10/uL (2.00 - 6.90) #LYMPH 1.11 10/uL (0.60 - 3.40) #MONO 0.75 10/uL (0.00 - 0.90) #EOS 0.10 10/uL (0.00 - 0.70) #BASO 0.04 10/uL (0.00 - 0.20) #IG 0.07 10/uL (0.00 - 0.10) #NRBC 0.00 10/uL (0.00 - 0.00) MANUAL DIFF NOT INDICATED RBC MORPH NOT INDICATEDCMP: (NII: 08/30/2020 23:00) ( MsgRcvd 08/30/2020 23:26) Final results Test Result Flag Units (Reference) COMPREHENSIVE METABOLIC PANEL COMPREHENSIVE METABOLIC PANEL SODIUM 137 mEq/L (134 - 153) POTASSIUM 4.2 mEq/L (3.6 - 5.0) CHLORIDE 100 mEq/L (98 - 107) CO2 29 MEQ/L (22 - 30) GLUCOSE 100 H MG/DL (70 - 99) BUN 12 MG/DL (7 - 21) CREATININE 0.6 L MG/DL (0.7 - 1.5) BUN/CREAT 20 (8 - 27) TOTAL PROTEIN 6.7 G/DL (6.3 - 8.2) ALBUMIN 4.0 G/DL (3.9 - 5.0) GLOBULIN 2.7 GM/DL (2.4 - 3.2) A/G RATIO 1.5 (0.8 - 2.0) CALCIUM 9.6 MG/DL (8.4 - 10.2) TOTAL BILI <0.7 MG/DL (0.2 - 1.3) ALKALINE PHOS 73 U/L (38 - 126) SGOT/AST 15 U/L (5 - 40) SGPT/ALT 10 U/L (7 - 56) ANION GAP 8.0 mmol/L (8.0 - 16.0) AGE 20 yrs NON-AA GFR >60 mL/min AFR AMER GFR >60 mL/min Male GFR Interprentation 20-49 yrs >60 mL/min Ttwkan32-90 yrs >56 mL/min Normal 60-69 yrs >49 mL/min Normal 70-79yrs>42 mL/min Normal 80 and above >35 mL/min Normal Female GFRInterpretation 20-39 yrs >60 mL/min Normal 40-49 yrs >58 mL/minNormal 50-59 yrs >51 mL/min Normal 60-69 yrs >45 mL/min Xbdxnl19-60 yrs >39 mL/min Normal 80 and above >32 mL/min NormalType Rh: (NII: 08/30/2020 23:00) ( MsgRcvd 08/30/2020 23:50) Final results Test Result Flag Units (Reference) ABO GROUP O RH TYPE POSITIVE { ABO/RH REENTER O POSITIVEUS TRANSVAGINAL (NON OB): (NII: 08/30/2020 22:00) ( MsgRcvd 08/31/2020 00:01) In Progress Exam US TRANSVAGINAL(NON OB) [place] [address] PHONE: [phone] FAX: [phone] Clinical Report - Physicians/Mid Levels [facility] Emergency Department [address] [place] [address] Phone #: ext- [phone] 08/30/2020 20:54 Patient: KATH SCHAEFER Sex: F : 2000 Age: 20y Name .................. : SILVANO Low Acct Number.................. : [id number] ROOM. ................. : [facility] MR Number ................... : [id number] Stay type ............. : E/R Discharge Date......... ... : Admit Date ......... : 08/30/20 Admit Phys .................... : COONEYNORM Date of ....... : 2000 Family Phys ................... : NO PCP Phone .................. : [phone] Age ................................ : 20 Film# .................. .:[id number] Sex ................................. : F Unsigned transcriptions are preliminary reports and do not represent a medical or legal document P[place]VIC [id number] COMPLETE:08/30/20 22:31 DLA 3735 Reason(s): Pelvic Pain US TRANSVAGINAL(NON OB) [id number] COMPLETE: 08/30/20 22:31 DLA 3736 (REASON FOR OBS: pelvic pain TRANSVESICAL AND ENDOVAGINAL ULTRASOUND OF THE PELVIS: CLINICAL HISTORY: Pelvic pain. FINDINGS: Transvesical and endovaginal sonography does not demonstrate an intrauterine gestation. The endometrium is only measured transvesically, but transvesically, the endometrium is thickened to approximately 2.1 cm. There is no definitive intrauterine gestation. There does appear to be an adnexal mass to the left adnexa measuring approximately 4.8 x 3 x 5.1 cm. There is no significant free fluid. IMPRESSION: No evidence of an intrauterine gestation and thus the possibility of an early IUP, or ectopic is not excluded. Clinical correlation is advised as to the need for further evaluation as this study does not exclude ectopic. Electronically Reviewed and Signed By DCTNAME , SIGNDATE, ASIF Transcribe Initials: DEAN , Transcribe Date: 08/30/20 23:57, Dictation Date: <<REPDIST>> Page 1 of 1US Pelvis: (NII: 08/30/2020 21:34) ( MsgRcvd 08/31/2020 00:01) In ProgressUS PE LVICReason(s): Pelvic PainTRANSPORTATION: WC IV? O2? Oxygen?(No) Room: ED: Unknown CMTS: pelvic pain, please also r/o torsion [place] [address] PHONE: [phone] FAX: [phone] Clinical Report - Physicians/Mid Levels [facility] Emergency Department [address] [place] [address] Phone #: [phone]- [phone] 08/30/2020 20:54 Patient: KATH SCHAEFER Sex: F : 2000 Age: 20y Name .................. : SILVANO Low Acct Number.................. : [id number] ROOM. ................. : TR-05 MR Number ................... : [id number] Stay type ............. : E/R Discharge Date......... ... : Admit Date ......... : 08/30/20 Admit Phys ......... ........... : COONEYNORM Date of ....... : 2000 Family Phys ................... : NO PCP Phone .................. : [phone] Age ................................ : 20 Film# .................. .:[id number] Sex ................................. : F Unsigned transcriptions are preliminary reports and do not represent a medical or legal document PELVIC [id number] COMPLETE:08/30/20 22:31 DLA 3735 Reason(s): Pelvic Pain US TRANSVAGINAL(NON OB) [id number] COMPLETE: 22:31 DLA 3736 (REASON FOR OBS: pelvic pain TRANSVESICAL AND ENDOVAGINAL ULTRASOUND OF THE PELVIS: CLINICAL HISTORY: Pelvic pain. FINDINGS: Transvesical and endovaginal sonography does not demonstrate an intrauterine gestation. The endometrium is only measured transvesically, but transvesically, the endometrium is thickened to approximately 2.1 cm. There is no definitive intrauterine gestation. There does appear to be an adnexal mass to the left adnexa measuring approximately 4.8 x 3 x 5.1 cm. There is no significant free fluid. IMPRESSION: No evidence of an intrauterine gestation and thus the possibility of an early IUP, or ectopic is not excluded. Clinical correlation is advised as to the need for further evaluation as this study does not exclude ectopic. Electronically Reviewed and Signed By DCTNAME , SIGNDATE, AML Transcribe Initials: DEAN , Transcribe Date: 08/30/20 23:57, Dictation Date: <<REPDIST>> Page 1 of 1Beta-HCG, Quant Serum: (NII: 08/30/2020 21:14) ( MsgRcvd 08/30/2020 22:18) Fi nal results Test Result Flag Units (Reference) HCG QUANT 2399.0 mIU/mL Interpretation: Less than 5 mU/mL: Negative6-10 mU/mL: Borderline (suggest repeat in 48 hours) >10: PositiveApprox HCG range (mU/mL) Weeks post LMP 5.4- 708 mU/mL 3-4 Xpjdq822-18149 mU/mL 5-6 Weeks 4059- 092841 mU/mL 7-8 Ygnxb35204-764248 mU/mL 9-10 Weeks 75664-71176 mU/mL 12-14 Qcvxq02698-25951 mU/mL 15-16 Weeks 8240-29119 mU/mL 17-18 Weeks 6 Clinical Report - Physicians/Mid Levels [facility] Emergency Department [address] [place] [address] Phone #: ext- [phone] 08/30/2020 20:54 Patient: KATH SCHAEFER Sex: F : 2000 Age: 20y.PROGRESS AND PROCEDURESCourse of Care: Pt is a 20 year old female with a hx of an ectopic who presents with impressie lower abdpain. more so on the left. labs are grossly nl. her quand hcg is 2499. her us shows a heterogenousmass to left ovary. I spoke to the mechanical maintenance engineer, Faye. She was unable to discern whether it is anectopic or the ovary. pt receive iv tylenol and iv toradol. pt is feeling better but she still has pain. I spoketo Dr. Hewitt. He would like labs and a serum progesterone. He would like to observe pt in the GYNservice. I discussed with pt. she is agreeable to being admitted. at the end of pt's ed stay, she provideda urine sample. pt is requesting more pain medication. will write for a dose of morhpine prior to her goingto the floor. Disposition: Condition: stable. Observation decision based on concern for ovarian torsion vs. ectopic .CLINICAL IMPRESSION Pelvic pain. ectoptic versus ovarian torsion.(Electronically signed by Kathrin Guthrie MD 08/31/2020 06:48) Name Value Range Interpretation Code Description Data Gini rce(s) Supporting Document(s) ID Date Data Source [id number] 08/30/2020 08:54:00 PM EST [facility] Addenda for KATH SCHAEFER VisitID: [id number] Date: 22:45faxed med rec and overview to at 2248(Electronically signed by Faviola Finney - 08/30/2020 22:45) Name Value Range Interpretation Code Description Data Gini rce(s) Supporting Document(s) ID Date Data Source [id number] 08/31/2020 12:20:00 AM EST [facility] ([facility]) Name Value Range Interpretation Code Description Data Gini rce(s) Supporting Document(s) Source Laboratory test result [facility] ([facility]) SOURCE: Clean Catch Urinalysis Laboratory test result [facility] ([facility]) SOURCE: Clean Catch Clarity Laboratory test result [facility] ([facility]) SOURCE: Clean Catch Color Laboratory test result [facility] ([facility]) SOURCE: Clean Catch pH 6 5-9 [facility] ([facility]) SOURCE: Clean Catch Spec [place] 1.025 1.001-1.030 [facility] ([facility]) SOURCE: Clean Catch Bilirubin Laboratory test result [facility] ([facility]) SOURCE: Clean Catch Glucose Laboratory test result [facility] ([facility]) SOURCE: Clean Catch Ketone Laboratory test result [facility] ([facility]) SOURCE: Clean Catch Protein Laboratory test result [facility] ([facility]) SOURCE: Clean Catch Nitrite Laboratory test result [facility] ([facility]) SOURCE: Clean Catch Blood 10 Abnormal (applies to non-numeric res ults) [facility] ([facility]) SOURCE: Clean Catch Leuk Est Laboratory test result [facility] ([facility]) SOURCE: Clean Catch Urobilinogen Laboratory test result [facility] ([facility]) SOURCE: Clean Catch WBC Laboratory test result [facility] ([facility]) SOURCE: Clean Catch Microscopic Laboratory test result [facility] ([facility]) SOURCE: Clean Catch RBC Laboratory test result [facility] ([facility]) SOURCE: Clean Catch Epithelial Laboratory test result [facility] ([facility]) SOURCE: Clean Catch Bacteria Laboratory test result [facility] ([facility]) SOURCE: Clean Catch Mucous Laboratory test result [facility] ([facility]) SOURCE: Clean Catch ID Date Data Source [id number] 08/31/2020 12:40:00 AM EST [facility] Name Value Range Interpretation Code Description Data Gini rce(s) Supporting Document(s) URINALYSIS [facility] URINALYSIS SOURCE Clean Catch [facility] ital COLOR yellow NORMAL: Yellow [facility] CLARITY clear NORMAL: Clear [facility] spital Specific gravity of Urine by Test strip 1.025 1.001 - 1.030 [facility] pH 6 5 - 9 [facility] Glucose [Mass/volume] in Urine by Test strip NORM NORMAL: Negat [facility] Bilirubin.total [Presence] in Urine by Test strip NEG NORMAL: Negative [facility] Ketones [Presence] in Urine by Test strip NEG NORMAL: Negative [facility] Protein [Mass/volume] in Urine by Test strip NEG NORMAL: Negat [facility] Nitrite [Presence] in Urine by Test strip NEG NORMAL: Negative [facility] BLOOD 10 NORMAL: Negative A [facility] Leukocyte esterase [Presence] in Urine by Test strip NEG KATHRIN L: Negative [facility] Urobilinogen [Mass/volume] in Urine by Test strip NOR less epifanio n 1.0 mg/dL [facility] MICROSCOPIC See Below [facility] WBC 0 - [address]: [address] [facility] Erythrocytes [#/volume] in Urine by Test strip 1 - 3 NORMAL: NON E SEEN [facility] EPITHELIAL FEW NORMAL: NONE SEEN [facility] Bacteria [Presence] in Urine sediment by Light microscopy Tr kanwal NORMAL: NONE SEEN [facility] Mucus [Presence] in Urine sediment by Light microscopy Trace NORMAL: NONE SEEN [facility] ID Date Data Source [id number] 08/30/2020 11:50:00 PM EST [facility] Name Value Range Interpretation Code Description Data Gini rce(s) Supporting Document(s) ABO group [Type] in Blood O [facility] Rh [Type] in Blood POSITIVE [facility] { ABO/RH REENTER O POSITIVE ID Date Data Source [id number] 08/30/2020 11:26:00 PM EST [facility] Name Value Range Interpretation Code Description Data Gini rce(s) Supporting Document(s) COMPREHENSIVE METABOLIC PANEL [facility] COMPREHENSIVE METABOLIC PANEL Sodium [Moles/volume] in Serum or Plasma 137 mEq/L 134 - 153 [facility] Potassium [Moles/volume] in Serum or Plasma 4.2 mEq/L 3.6 - 5.0 [facility] Chloride [Moles/volume] in Serum or Plasma 100 mEq/L 98 - 107 [facility] Carbon dioxide, total [Moles/volume] in Serum or Plasma 29 MEQ/L 22 - 30 [facility] Glucose [Mass/volume] in Serum or Plasma 100 MG/DL 70 - 99 H [facility] BUN 12 MG/DL 7 - 21 [facility] Creatinine [Mass/volume] in Serum or Plasma 0.6 MG/DL 0.7 - 1.5 L [facility] BUN/CREAT 20 8 - 27 [facility] al Protein [Mass/volume] in Serum or Plasma 6.7 G/DL 6.3 - 8.2 [facility] Albumin [Mass/volume] in Serum or Plasma 4.0 G/DL 3.9 - 5.0 [facility] Globulin [Mass/volume] in Serum by calculation 2.7 GM/DL 2.4 - 3.2 [facility] A/G RATIO 1.5 0.8 - 2.0 [facility] Calcium [Mass/volume] in Serum or Plasma 9.6 MG/DL 8.4 - 10.2 [facility] Bilirubin.total [Mass/volume] in Serum or Plasma <0.7 MG/DL 0.2 - 1.3 [facility] Alkaline phosphatase [Enzymatic activity/volume] in Serum or Plasma 73 U/L 38 - 126 [facility] Aspartate aminotransferase [Enzymatic activity/volume] in Serum or Plasma 15 U/L 5 - 40 [facility] Alanine aminotransferase [Enzymatic activity/volume] in Seru m or Plasma 10 U/L 7 - 56 [facility] Anion gap 3 in Serum or Plasma 8.0 mmol/L 8.0 - 16.0 [facility] AGE 20 yrs [facility] al NON-AA GFR >60 mL/min [facility] AFR AMER GFR >60 mL/min [facility] spital Male GFR In terprentation 20-49 yrs >60 mL/min Normal 50-59 yrs >56 mL/min Normal 60-69 yrs >49 mL/min Normal 70-79yrs >42 mL/min Normal 80 and above >35 mL/min Normal Female GFR Interpretation 20-39 yrs >60 mL/min Normal 40-49 yrs >58 mL/min Normal 50-59 yrs >51 mL/min Normal 60-69 yrs >45 mL/min Normal 70-79 yrs >39 mL/min Normal 80 and above >32 mL/min Normal ID Date Data Source [id number] 08/30/2020 11:17:00 PM EST [facility] Name Value Range Interpretation Code Description Data Gini rce(s) Supporting Document(s) CBC W/AUTOMATED DIFF [facility] COMPLETE BLOOD COUNT Leukocytes [#/volume] in Blood by Automated count 13.0 10^3/uL 4.2 - 11.0 H [facility] Erythrocytes [#/volume] in Blood by Automated count 3.55 10^6/uL 4. 20 - 5.40 L [facility] Hemoglobin [Mass/volume] in Blood 10.4 g/dL 12.0 - 16.0 L [facility] Hematocrit [Volume Fraction] of Blood by Automated count 31.8 % 3 7.0 - 47.0 L [facility] Erythrocyte mean corpuscular volume [Entitic volume] by Auto mated count 89.6 fL 81.0 - 101 [facility] Erythrocyte mean corpuscular hemoglobin [Entitic mass] by Automated count 29.3 pg 27.0 - 34.0 [facility] Erythrocyte mean corpuscular hemoglobin concentration [Mass/volume] by Automated count 32.7 g/dL 31.0 - 36.0 [facility] Erythrocyte distribution width [Ratio] by Automated count 12.6 % 11.5 - 14.5 [facility] Platelets [#/volume] in Blood by Automated count 267 10^3/uL 150 - 45 0 [facility] Platelet mean volume [Entitic volume] in Blood by Automated count 9.6 fL 7.4 - 10.4 [facility] Neutrophils/100 leukocytes in Blood by Automated count 84.0 % 37. 0 - 80.0 H [facility] Lymphocytes/100 leukocytes in Blood by Manual count 8.6 % 25.0 - 40.0 L [facility] Monocytes/100 leukocytes in Blood by Automated count 5.8 % 3.0 - 8.0 [facility] Eosinophils/100 leukocytes in Blood by Automated count 0.8 % 0.0 - 7.0 [facility] Basophils/100 leukocytes in Blood by Automated count 0.3 % 0.0 - 2.5 [facility] %IG 0.5 % 0.0 - 0.0 H [facility] %NRBC 0.0 % 0.0 - 0.0 [facility] al Neutrophils [#/volume] in Blood by Automated count 10.90 10^3/uL 2. 00 - 6.90 H [facility] Lymphocytes [#/volume] in Blood by Automated count 1.11 10^3/uL 0.60 - 3.40 [facility] Monocytes [#/volume] in Blood by Automated count 0.75 10^3/uL 0.00 - 0.90 [facility] Eosinophils [#/volume] in Blood by Automated count 0.10 10^3/uL 0.00 - 0.70 [facility] Basophils [#/volume] in Blood by Automated count 0.04 10^3/uL 0.00 - 0.20 [facility] #IG 0.07 10^3/uL 0.00 - 0.10 [facility] ospital #NRBC 0.00 10^3/uL 0.00 - 0.00 [facility]spital MANUAL DIFF NOT INDICATED [facility] RBC MORPH NOT INDICATED [facility] spital ID Date Data Source [id number] 08/30/2020 10:48:00 PM EST [facility] ([facility]) Name Value Range Interpretation Code Description Data Gini rce(s) Supporting Document(s) Laboratory test finding (navigational concept) Laboratory test result [facility] ([facility]) First test?: Y~Employed in healthcare?: N~Symptomatic as defined by CDC?: N~Hospitalized?: Y Laboratory test finding (navigational concept) Laboratory test result [facility] ([facility]) First test?: Y~Employed in healthcare?: N~Symptomatic as defined by CDC?: N~Hospitalized?: Y ID Date Data Source [id number] 08/30/2020 10:48:00 PM EST [facility] Name Value Range Interpretation Code Description Data Gini rce(s) Supporting Document(s) COVID19 Case rprt NOT DETECTED [facility] This lab was ordered by [facility] and reported by [facility]. ID Date Data Source [id number] 08/30/2020 11:18:00 PM EST [facility] NOT DETECTEDNOT DETECTED{ PROC EDURAL CONTROL VALID KIT LOT # _[id number] 08/30/20.AB . . . KIT EXP DATE _[id number] 08/30/20.AB . . . NORMAL RANGE IS NOT DETECTEDNEGATIVE RESULTS SHOULD BE TREATED PRESUMPTIVE AND, IF INCONSISTENT WITHCLINICAL SIGNS AND SYMPTOMS OR NECESSARY FOR PATIENT MANAGEMENT, SHOULD BETESTED WITH DIFFERENT AUTHORIZED OR CLEARED MOLECULAR TESTS. NEGATIVE RESULTSDO NOT PRECLUDE SARS-CoV -2 INFECTION AND SHOULD NOT BE USED THE SOLE BASISFOR PATIENT MANAGEMENT DECISIONS. Name Value Range Interpretation Code Description Data Gini rce(s) Supporting Document(s) ID Date Data Source [id number] 08/30/2020 10:18:00 PM [facility] Name Value Range Interpretation Code Description Data Gini rce(s) Supporting Document(s) Choriogonadotropin.intact [Units/volume] in Serum or Plasma 2399.0 mI U/mL [facility] Interpr etation: Less than 5 mU/mL: Negative 6-10 mU/mL: Borderline (suggest repeat in 48 hours) >10: Positive Approx HCG range (mU/mL) Weeks post LMP 5.4-708 mU/mL 3-4 Weeks 217-22206 mU/mL 5-6 Weeks 4059-061934 mU/mL 7-8 Weeks 29310-072574 mU/mL 9-10 Weeks 26398-38441 mU/mL 12-14 Weeks 48692-92231 mU/mL 15-16 Weeks 8240- 75296 mU/mL 17-18 Weeks ID Date Data Source [id number] 08/19/2020 04:27:00 PM [facility] 1 OrderSheet [facility] Emergency Department [address] [place] [address] Phone #: ext- [phone] 08/19/2020 16:12 Patient: KATH SCHAEFER Sex: F : 2000 Age: 20yWEIGHT:72.5 kg (S) HEIGHT:64 inches (S) BMI:27.5ALLERGIES: NoneCHIEF COMPLAINT: headDIAGNOSIS: Laceration - InjuryLAB ORDERSOrder Description Priority Entered Acknowledged InitialedDIAGNOSTIC STUDY ORDERSOrder Description Priority Entered Acknowledged InitialedMEDICATION/IV/DRIP/FLUID ORDERSOrder Description Priority Entered Acknowledged InitialedTdap IM 0.5 mL 17:07 08/19/2020 17:15 Tram Boland Riccardo Jennifer R.N. M.D.;GENERAL ORDERSOrder Description Priority Entered Acknowledged Initialed[Electronically signed by Aleshia Boland R.N. (17:38 08/19/2020)][Electronically signed by Shawna Gomes M.D. (20:54 08/19/2020)][Electronically locked by Aleshia Boland R.N. (17:38 08/19/2020)] Name Value Range Interpretation Code Description Data Gini rce(s) Supporting Document(s) ID Date Data Source [id number] 08/19/2020 04:27:00 PM [place] [address] Medication Reconciliation Report [facility] Emergency Department [address] [place] [address] Phone #: ext- [phone] 08/19/2020 16:12 Patient: KATH SCHAEFER Sex: F : 2000 Age: 20yWeight: 72.5 kgHeight/Length: 64 in.BMI: 27.5ALLERGIES: NoneThe patient's Home Medications are listed below:NONE.The source(s) of the original Home Medication information:Not obtained.The following Medications were given to the patient in the Emergency Department:TDAP [IM] IM 0.5 mL, administered: 17:15 08/19/2020The following Medications were prescribed to the patient:None. Name Value Range Interpretation Code Description Data [facility] rce(s) Supporting Document(s) ID Date Data Source [id number] 08/19/2020 04:27:00 PM [facility] 1 Medication Administration Record [facility] Emergency Department [address] [place] [address] Phone #: [phone]- [phone] 08/19/2020 16:12 Patient: KATH SCHAEFER Sex: F : 2000 Age: 20yWeight: 72.5 kgHeight/Length: 64 inBMI: 27.5ALLERGIES: None Date/Time Medication Administered Medication OrderedGiven TDAP [IM] Tdap IM 0.5 mL17:15 08/19/2020 Dose: 0.5 mL Aleshia Garza R.N. Name Value Range Interpretation Code Description Data Gini rce(s) Supporting Document(s) ID Date Data Source [id number] 08/19/2020 04:27:00 PM EST [facility] 1 General Instructions [facility] Emergency Department [address] [place] [address] Phone #: ext- [phone] 08/19/2020 16:12 Patient: KATH SCHAEFER Sex: F : 2000 Age: 20ySingle superficial laceration to the scalp. No foreign body present.INSTRUCTIONSApply ice for 30 minutes four times a day for two days. Don't apply ice directly to skin. Protect wound andkeep wound area clean. You may wash wounds briefly, then dry. Apply bacitracin twice daily. Staplesshould be removed in five days.Warnings: GENERAL WARNINGS: Return or contact your physician immediately if your conditionworsens or changes unexpectedly, if not improving as expected, or if other problems arise. Specificallyreturn if pain, vomiting, bleeding, breathing difficulty or fever greater than 102 degrees F and not controlledby acetaminophen or ibuprofen.Your Current Medications: .No home medication.Follow-up:Return to the emergency department as needed. Follow up with your healthcare provider in five dayseven if well and for staple removal. Call for an appointment. Summary of care provided to patient via paper.Understanding of the discharge instructions verbalized by patient. Expected course of injury, dischargeinstructions, activity level, diet and risks and benefits of treatment reviewed with patient and understandingverbalized. Agrees to plan of care. ADDITIONAL INFORMATIONScalp Laceration, Stitches or StaplesA laceration is a cut through the skin. A scalp laceration may require stitches or shital. It may alsobe closed with a hair positioning technique such as braiding. There are a lot of blood vessels in thescalp. Because of this, a lot of bleeding is common with scalp cuts. You may need a tetanus shot ifyou are not up to date on your tetanus vaccine.Home careThese guidelines will help you care for your laceration at home: 2 General Instructions [facility] Emergency Department [address] [place] [address] Phone #: ext- [phone] 08/19/2020 16:12 [id number] Sex[facility] : 2000 Age: 20y During the first 2 days you may carefully rinse your hair in the shower to remove blood and glass or dirt particles. After 2 days you may shower and shampoo your hair normally. Don't scrub repaired area or let water run on it for a long time. Have someone help you clean your wound every day: o In the shower, wash the area with soap and water. Use a wet cotton swab to loosen and remove any blood or crust that forms. o After cleaning, keep the wound clean and dry. Talk with your doctor about applying antibiotic ointment to the wound. Apply a fresh bandage. Don't put your head underwater until the stitches or shital have been removed. This means no swimming. Your doctor may prescribe an antibiotic cream or ointment to prevent infection. Don't stop taking this medicine until you have finished the prescribed course or your doctor tells you to stop. Your doctor may prescribe medicines for pain. If no pain medicines were prescribed, you can use jkag-cli-niwwgip pain medicines. Follow instructions for taking these medicines. Talk with your doctor before using these medicines if you have chronic liver or kidney disease. Also talk with your doctor if you have ever had a stomach ulcer or gastrointestinal bleeding.Follow-up careFollow up with your healthcare provider, or as advised. Check the wound daily for the signs ofinfection listed below. Stitches or shital are usually removed from the scalp in about 7 to 10 days.Call [phone] if this occurs: Bleeding can't be controlled by direct pressureWhen to seek medical adviceCall your healthcare provider right away if any of these occur: Signs of infection, including increasing pain in the wound, redness, swelling, or pus coming from the wound Fever of 100.4F (38C) or higher, or as directed by your healthcare provider Stitches or shital come apart or fall out before 7 days Wound edges re- open 3 General Instructions [facility] Emergency Department [address] [place] [address] Phone #: ext- [phone] 08/19/2020 16:12 Patient: KATH SCHAEFER Sex: F : 2000 Age: 20y [id number] [employer]. [address] [place] [address]. All rights reserved. This information is not intended as asubstitute for professional medical care. Always follow your healthcare professional's instructions.Scalp Laceration, Stitches or StaplesA laceration is a cut through the skin. A scalp laceration may require stitches or shital. It may alsobe closed with a hair positioning technique such as braiding. There are a lot of blood vessels in thescalp. Because of this, a lot of bleeding is common with scalp cuts. You may need a tetanus shot ifyou are not up to date on your tetanus vaccine.Home careThese guidelines will help you care for your laceration at home: During the first 2 days you may carefully rinse your hair in the shower to remove blood and glass or dirt particles. After 2 days you may shower and shampoo your hair normally. Don't scrub repaired area or let water run on it for a long time. Have someone help you clean your wound every day: o In the shower, wash the area with soap and water. Use a wet cotton swab to loosen and remove any blood or crust that forms. o After cleaning, keep the wound clean and dry. Talk with your doctor about applying antibiotic ointment to the wound. Apply a fresh bandage. Don't put your head underwater until the stitches or shital have been removed. This means no swimming. Your doctor may prescribe an antibiotic cream or ointment to prevent infection. Don't stop taking this medicine until you have finished the prescribed course or your doctor tells you to stop. Your doctor may prescribe medicines for pain. If no pain medicines were prescribed, you can use atmz-lcz-ctbzlfa pain medicines. Follow instructions for taking these medicines. Talk with your doctor before using these medicines if you have chronic liver or kidney disease. Also talk with your doctor if you have ever had a stomach ulcer or gastrointestinal bleeding.Follow-up careFollow up with your healthcare carmencita edwards, or as advised. Check the wound daily for the signs ofinfection listed below. Stitches or shital are usually removed from the scalp in about 7 to 10 days.Call 911 4 General Instructions [facility] Emergency Department [address] [place] [address] Phone #: ext- [phone] 08/19/2020 16:12 Patient: KATH SCHAEFER Sex: F : 2000 Age: 20yCall 911 if this occurs: Bleeding can't be controlled by direct pressureWhen to seek medical adviceCall your healthcare provider right away if any of these occur: Signs of infection, including increasing pain in the wound, redness, swelling, or pus coming from the wound Fever of 100.4F (38C) or higher, or as directed by your healthcare provider Stitches or shital come apart or fall out before 7 days Wound edges re-open [id number] [employer]. [address] [place] [address], [place] [address]. All rights reserved. This information is not intended as asubstitute for professional medical care. Always follow your healthcare professional's instructions. You have been given the following additional information: Laceration, Scalp: Sutures or Shital Laceration, Scalp: Sutures or Shital(Electronically signed by Shawna Gomes M.D. 08/19/2020 20:54) Name Value Range Interpretation Code Description Data Gini rce(s) Supporting Document(s) ID Date Data Source [id number] 08/19/2020 04:27:00 PM EST [facility] 1 Clinical Report - Nurses [facility] Emergency Department [address] [place] [address] Phone #: ext- [phone] 08/19/2020 16:12 Patient: KATH SCHAEFER Sex: F : 2000 Age: 20yTRIAGEArrived by private vehicle. Historian: patient. Unaccompanied. ( something fell on her head, possiblesalt rock).Acuity: LEVEL 3.Chief Complaint: LACERATION.Alert.Pre-hospital notification of patient arrival was not received.Location of injuries: left frontal area. Occurred at home. Occurred 16:00 08/19/2020. The patient hashad a headache. ( was dizzy after laceration).Treatment FILTERS ASSEMBLER:None.SEPSIS SCREEN: SIRS SCREEN NEGATIVE. SEPSIS SCREEN NEGATIVE. No suspected or confirmedsigns of infection present.GABBI COMA SCORE: 15- eyes open- spontaneous (4); best verbal response- oriented (5); bestmotor response- obeys commands (6).REVISED TRAUMA SCORE: 10- respirations- greater than 29 (3); systolic blood pressure- 76-89 (3);Gabbi coma score- 13- 15 (4). --16:19 08/19/20 Rona Leon R.N.16:13 08/19/20. BP: 135/87. MAP: 103. HR: 90. RR: 17. O2 saturation: 96%. Temp: 98.1 F. Pain levelnow: 05/04. --16:19 08/19/20 Rona Leon R.N.Weight: 72.5 kg stated. Height/Length: 64 inches Per Patient. BMI: 27.5. --16:12 08/19/20 Rona Leon R.N.MedicationsNone. --16:15 08/19/20 Rona Leon R.N.AllergiesNone. --16:14 08/19/20 Rona Leon R.N.PROBLEMS:Anemia. --16:16 08/19/20 Rona Leon R.N.ADDITIONAL SURGERIES: 2 Clinical Report - Nurses [facility] Emergency Department [address] [place] [address] Phone #: ext- [phone] 08/19/2020 16:12 Patient: KATH SCHAEFER Sex: F : 2000 Age: 20y . Ectopic pregancy. --16:16 08/19/20 Rona Leon R.N. History PAST MEDICAL HX: Tetanus status: unknown. Immunizations: up-to-date. Last normal menstrual period- Aug 06. SOCIAL HX: Never smoker. No alcohol use or drug use. The patient was offered HIV testing but declined and hepatitis C testing but declined. The patient has not traveled outside the [place] Infectious disease exposure: No infectious disease exposure. Patient is not a known carrier of tuberculosis, hepatitis, HIV, MRSA or VRE. Patient is not a known carrier of CRE. SELF HARM ASSESSMENT: Self harm assessment was performed. The patient answered "no" to the question(s) "Have you recently felt down, depressed, or hopeless?", "Do you have thoughts of harming or killing yourself?", "Do you have a plan for harming or killing yourself?", "Have you recently had thoughts about harming or killing others?", "Do you have any dangerous items in your possession?", "Have you noticed less interest or pleasure in doing things?", "Are you here because you tried to hurt yourself?" and "Have you ever tried to hurt yourself before today?". ABUSE ASSESSMENT: Abuse assessment. Abuse denied. No suspicion of abuse. No report of abuse. NUTRITIONAL RISK ASSESSMENT: The nutritional risk assessment revealed no deficiencies. FUNCTIONAL ASSESSMENT: Functional assessment: no impairments noted. LEARNING NEEDS ASSESSMENT: The learning needs assessment revealed no barriers. FALL RISK ASSESSMENT: Fall risk assessment completed. No risk factors identified. SKIN INTEGRITY ASSESSMENT: Skin integrity risk assessment completed. No skin integrity risk identified. --16:19 08/19/20 Rona Leon R.N. Interventions Identification band on patient. To treatment room. --16:19 08/19/20 Rona Leon R.N.PHYSICAL ASSESSMENTAmbulatory to room.GENERAL / NEURO / PSYCH: Alert. Oriented X 4. Appears in no acute distress.HEENT: Pupils equal, round and reactive to light. Head non-tender. Head: tenderness. ( has a h/a,denies LOC).RESPIRATORY: Respirations not labored. Chest nontender. Breath sounds within normal limits.CVS: Normal heart rate and rhythm.EXTREMITIES: Extremities exhibit normal ROM. Neuro-vascular status intact to the extremity.SKIN: Skin intact. Skin is warm and dry. --16:26 08/19/20 Ana Hong R.N. 3 Clinical Report - Nurses [facility] Emergency Department [address] [place] [address] Phone #: ext- [phone] 08/19/2020 16:12 [id number] Sex: [facility] : 2000 Age: 20y HEENT: Head: laceration. --16:26 08/19/20 Ana Hong R.N.NURSING PROGRESS NOTESPatient gowned. Reassurance given. Two patient identifiers checked. Call light placed in reach. Siderails up x 2. Bed placed in lowest position. Brakes of bed on. Patient ready for evaluation. --16: Rona Leon R.N. WOUND REPAIR: Wound repair performed by ED physician. Assisted by one nurse. The wound is located on the scalp. The wound is linear. Preparation; sterile saline. Wound cleansed per physician with sterile saline and irrigated with sterile saline. Procedure: wound repaired with shital (4 shital). Total time of assist / procedure: 15 minutes. --17:12 08/19/20 Rona Leon R.N. 17:15 08/19/2020 TDAP IM 0.5 mL given(Lot#: [id number], expiration date: 06/01/2022, Strainer Mill Operator: [id number]). Given in the right deltoid. Allergies verified and confirmed 5 rights. Information reviewed with patient including reason for taking this medication, signs of allergic reaction and precautions. Verbalizes understanding. Vaccine information statement provided to the patient. --17:15 08/19/20 Aleshia Boland R.N. late entry - 17:22 08/19/20. The patient reports no complaints and she is calm and resting quietly. Overall patient status is the same- she states feels the same. --17:37 08/19/20 Aleshia Boland R.N.DISPOSITION / DISCHARGE 17:35 08/19/20. BP: unable to obtain. HR: unable to obtain. RR: unable to obtain. O2 saturation: unable to obtain. Temp: unable to obtain. Additional comments: Patient Refused all vital signs. --17:36 08/19/20 [facility] ER Tech1 Departure time: late entry - 17:30 08/19/2020. Condition at departure: stable. ( Provider aware of all VS refusal). No learning barriers present. Discharge instructions provided and reviewed with the patient. Reviewed warnings (please see paper copy). Reviewed wound care and ice instructions. Activity restrictions reviewed. Work note given. Patient verbalized understanding. Written instructions provided in Sammarinese. The patient was discharged by the physician. She was discharged home and accompanied by template reproduction technician. She left ambulatory and via private vehicle. Medical Radiation Therapist driving. --17:38 08/19/20 Aleshia Boland R.N. 17:38 08/19/20. Pain level now deferred. --17:38 08/19/20 Aleshia Boland R.N.Locked/Released at 08/19/2020 17:38 by Aleshia Boland R.N. 4 Clinical Report - Nurses [facility] Emergency Department [address] [place] [address] Phone #: ext- [phone] 08/19/2020 16:12 Patient: KATH SCHAEFER Sex: F : 2000 Age: 20y Name Value Range Interpretation Code Description Data Gini rce(s) Supporting Document(s) ID Date Data Source [id number] 0001 08/19/2020 04:27:00 PM EST [facility] 1 Clinical Report - Physicians/Mid Levels [facility] Emergency Department [address] [place] [address] Phone #: ext- [phone] 08/19/2020 16:12 Patient: KATH SCHAEFER Sex: F : 2000 Age: 20y Time Seen: 16:22 08/19/2020; initial patient contact. Arrived- By private vehicle. Historian- patient. Disposition decision: 17:18 08/19/2020.HISTORY OF PRESENT ILLNESS Chief Complaint: INJURY TO HEAD. Location of injuries- head. The injury occurred just prior to arrival. Occurred at home. The patient sustained a laceration from a sharp edge (salt rock fell on her while she was moving cabinet). The patient complains of mild pain. The patient sustained a mild blow to the head.REVIEW OF SYSTEMSNo seizure, numbness, hearing loss, loss of vision or chest pain. No weakness, difficulty breathing,bladder dysfunction or fever. She sustained a single small skin laceration to the scalp. Has not recentlybeen ill. All other systems reviewed and are negative.PAST HISTORYSee nurses notes. Tetanus immunization status is unknown. Problems: Ectopic . Anxiety Re action. Depression. Additional Surgeries: . Ectopic pregancy. Right fallopian tube removed. Medications: None. Allergies: None.SOCIAL HISTORYNever smoker. No alcohol use or drug use.ADDITIONAL NOTESThe nursing notes have been reviewed with agreement regarding the chief complaint, HPI, ROS, PMH andpatient medications and allergies. 2 Clinical Report - Physicians/Mid Levels [facility] Emergency Department [address] [place] [address] Phone #: ext- [phone] 08/19/2020 16:12 Patient: KATH SCHAEFER Sex: F : 2000 Age: 20yPHYSICAL EXAMVital Signs: 08/19/2020 16:13 BP: 135/87. MAP: 103. HR: 90. RR: 17. O2 saturation: 96%. Temp: 98.1 F.Pain level now: 05/04. Have been reviewed. Oxygen saturation normal.Appearance: Alert. Anxious. No acute distress.Head: No swelling of head. Vertex: mild tenderness and subcutaneous 1.5 cm laceration with controlledbleeding of the posterior aspect of the vertex. SEE LACERATION PROCEDURE NOTE #1. No swelling orecchymosis.Eyes: Pupils equal, round and reactive to light. EOM intact.ENT: Pharynx normal.Neck: Painless ROM. Non-tender.CVS: Normal heart rate and rhythm. Heart sounds normal. Pulses normal.Respiratory: Painless inspiration. Breath sounds normal.Back: No tenderness. ROM normal.Skin: Skin warm and dry. Normal skin color. Normal skin turgor.Extremities: Normal inspection. Pelvis stable. Extremities atraumatic. No lower extremity edema.Neuro: Oriented X 3. Mood/affect normal. Speech normal. No motor deficit. Normal gait. No sensorydeficit.PROGRESS AND PROCEDURESLaceration Repair: Time: 17:04 08/19/2020. Location: scalp. Length: 1.5cm. Complexity: simple(stapled).Wound depth/shape- curved and linear. Wound is clean. Wound cleansed extensively with normal saline.Closure of superficial layer: (4 shital). Post-procedure: she is stable and there are no complications.Bleeding is controlled. Tetanus immunization given. Course of Care: 17:15 08/19/20. please note that pt was loud and obnoxious during repair, swearing, using the f... word to RN; pt initially refused to have shital but then was convinced to get them since they were needed; pt seemed either slightly intoxicated or under the influence of something; pt was calmed down to complete the repair and after DT given was d/c w instructions. Patient counseled in person regarding the patient's stable condition, test results, diagnosis and need for follow-up. Patient agrees with plan of care. Disposition: Condition: g ood and stable. Discharge decision based on the following: patient's condition is stable; patient's condition is improved; patient is ambulatory; patient is active; patient drinking fluids; patient's pain is controlled; patient's exam is improved; resolved condition on repeat evaluation; social support is good; transportation is available; follow-up is available; clinical impression is consistent with outpatient treatment.CLINICAL IMPRESSION Single superficial laceration to the scalp. No foreign body present. 3 Clinical Report - Physicians/Mid Levels [facility] Emergency Department [address] [place] [address] Phone #: ext- [phone] 08/19/2020 16:12 [id number] Sex[facility] F : 2000 Age: 20yINSTRUCTIONS Apply ice for 30 minutes four times a day for two days. Don't apply ice directly to skin. Protect wound and keep wound area cl nirmal. You may wash wounds briefly, then dry. Apply bacitracin twice daily. Shital should be removed in five days. Warnings: GENERAL WARNINGS: Return or contact your physician immediately if your condition worsens or changes unexpectedly, if not improving as expected, or if other problems arise. Specifically return if pain, vomiting, bleeding, breathing difficulty or fever greater than 102 degrees F and not controlled by acetaminophen or ibuprofen. Your Current Medications: . No home medication. Follow-up: Return to the emergency department as needed. Follow up with your healthcare provider in five days even if well and for staple removal. Call for an appointment. Summary of care provided to patient via paper. Understanding of the discharge instructions verbalized by patient. Expected course of injury, discharge instructions, activity level, diet and risks and benefits of treatment reviewed with patient and understanding verbalized. Agrees to plan of care.(Electronically signed by Shawna Gomes M.D. 08/19/2020 20:54) Name Value Range Interpretation Code Description Data Gini rce(s) Supporting Document(s) Procedure Social History No Information Vital Signs ID Date Data Source UNK Name Value Range Interpretation Code Description Data Source(s) Systolic blood pressure 126 mm[Hg] 126 mm[Hg] M [facility] ([facility]) Diastolic blood pressure 86 mm[Hg] 86 mm[Hg] [facility] ([facility]) Heart rate 112 /min 112 /min [facility] ([facility]) Body temperature 98.5 [degF] 98.5 [degF] [facility] Respiratory rate 20 /min 20 /min [facility] ( [facility]) Oxygen saturation in Arterial blood by Pulse oximetry 98 % 98 % [facility] ([facility]) ID Date Data Source [id number] 05/16/2021 04:53:00 AM EDT [facility] Name Value Range Interpretation Code Description Data Source(s) Weight Measurement Method 1 1 [facility] Weight (Calculated Kilograms) 64.86 64.86 [facility] Weight 2288 2288 [facility] Temperature Source 7 7 [facility] Temperature 98.1 98.1 [facility] Respiratory Effort 1 1 [facility] Respiratory Rate 16 16 [facility] Pulse Assessment Method 4 4 [facility] Pulse Rate 72 72 [facility] Height (Calculated Centimeters) 157.48 157. 48 [facility] Height 62 62 [facility] Blood Pressure 101/66 101/66 [facility] Body Mass Index (BMI) 26.2 26.2 Health system Weight Measurement Method 1 1 [facility] Weight (Calculated Kilograms) 64.86 64.86 [facility] Weight 2288 2288 [facility] Temperature Source 7 7 [facility] Temperature 98.1 98.1 [facility] Respiratory Effort 1 1 [facility] Respiratory Rate 16 16 [facility] Pulse Assessment Method 4 4 [facility] Pulse Rate 72 72 [facility] Height (Calculated Centimeters) 157.48 157. 48 [facility] Height 62 62 [facility] Blood Pressure 101/66 101/66 [facility] Body Mass Index (BMI) 26.2 26.2 Health system Weight Measurement Method 1 1 [facility] Weight (Calculated Kilograms) 64.86 64.86 [facility] Weight 2288 2288 [facility] Temperature Source 7 7 [facility] Temperature 98.1 98.1 [facility] Respiratory Effort 1 1 [facility] Respiratory Rate 16 16 [facility] Pulse Assessment Method 4 4 [facility] Pulse Rate 72 72 [facility] Height (Calculated Centimeters) 157.48 157. 48 [facility] Height 62 62 [facility] Blood Pressure 101/66 101/66 [facility] Body Mass Index (BMI) 26.2 26.2 Health system Weight Measurement Method 1 1 [facility] Weight (Calculated Kilograms) 64.86 64.86 [facility] Weight 2288 2288 [facility] Temperature Source 7 7 [facility] Temperature 97.7 97.7 [facility] Respiratory Effort 1 1 [facility] Respiratory Rate 16 16 [facility] Pulse Assessment Method 4 4 [facility] Pulse Rate 72 72 [facility] Height (Calculated Centimeters) 157.48 157. 48 [facility] Height 62 62 [facility] Blood Pressure 115/72 115/72 [facility] Body Mass Index (BMI) 26.2 26.2 Health system Weight Measurement Method 1 1 [facility] Weight (Calculated Kilograms) 64.86 64.86 [facility] Weight 2288 2288 [facility] Temperature Source 6 6 [facility] Temperature 98.8 98.8 [facility] Respiratory Effort 1 1 [facility] Respiratory Rate 16 16 [facility] Pulse Assessment Method 1 1 [facility] Pulse Rate 68 68 [facility] Height (Calculated Centimeters) 157.48 157. 48 [facility] Height 62 62 [facility] Blood Pressure 122/68 122/68 [facility] Body Mass Index (BMI) 26.2 26.2 Health system ID Date Data Source [id number] 09/17/2020 10:23:20 AM [facility] Name Value Range Interpretation Code Description Data Source(s) WEIGHT RECORDED 190.00 pounds 190.00 pounds [facility] Height 63 Inches 063 Inches [facility] Patient Treatment Plan of Care Planned Activity Planned Date Details Description Data Source (s) Thiamine 100 MG Oral Tablet 05/02/2021 12:00:00 AM [facility] Multi-Vit/Mineral (Multivitamin Tablet) 1 TAB TAB 05/02/2021 12: 00:00 AM [facility] Ibuprofen 600 MG Oral Tablet 05/02/2021 12:00:00 AM [facility] Folic Acid 1 MG Oral Tablet 05/02/2021 12:00:00 AM [facility] Clonidine Hydrochloride 0.1 MG Oral Tablet 05/02/2021 12:00:00 AM [facility]
[2021-05-30] MEDS ORDERED: NS 1,000 ML IV ONE (19:55)
--- OUTSIDE RECORDS SUMMARY | 2021-05-30 20:33 | CCD ---
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 A D/V INCIDENT OCCURRED IN THE PRESENSE OF [facility] RESULTING IN FAMILY [facility] INTERVENTION. THEY [...] rce(s) Supporting Document(s) ID Date Data Source [id number] 04/30/2021 08:43:00 AM EDT [employer] Counselor Progress NotePatient NoteCOSANTIAGO HEIDI SUBMITTED REFERRALS TO THE FOLLOWING INPATIENT PROGRAMS:-[facility]ated on 04/30/21842 by Sadiq Aguirrecribed on 04/30/21842 by Tee Aguirre by Jocelyn Aguirre on 04/30/21 0845Sign by: Jocelyn Aguirre Name Value Range Interpretation Code Description Data Gini rce(s) Supporting Document(s) ID Date Data Source [id number] 04/29/2021 03:15:00 PM EDT [facility]. Counselor Progress NotePatient NoteCOUNS JOCELYN GORDON, MS, CASAC-T, COMPLETED THE SAFE-T ASSESSMENTWITH THE PATIENT (SEE IN CHART).Dictated on 04/29/211514 by Jocelyn AguirreTranscribed on 04/29/211514 by Tee Agiurre by Jocelyn Aguirre on 04/29/21 1516Sign by: Jocelyn Aguirre Name Value Range Interpretation Code Description Data Gini rce(s) Supporting Document(s) ID Date Data Source [id number] 04/28/2021 10:54:00 PM EDT [facility]. See AddendumHistory and PhysicalChie f Complaint:detoxHistory of Present Vygqrpt45 yrs old lady with no significant past [...] Known Drug Allergies (04/28/21)Physical ExaminationVital SignsVital SignsFlow WoH5Bhli Ox Delivery Rate04/28 2210 97.7 89 19 [...] 400 MG Q4H PRN 04/28 2250 UNVPOAssessment/Plan ([facility])Impression1. Desire for detoxification2. Admitted to substance [...] Device:No Mechanical ProphylaxisReason no mechanical deviceNot neededTime [id number] on 04/28/212253 by Calvin Lawton MBBS, M.D.Transcribed [...] rce(s) Supporting Document(s) ID Date Data Source [id number] 04/28/2021 07:45:00 PM EDT [facility] Name Value Range Interpretation Code Description Data Gini rce(s) Supporting Document(s) SARS-CoV-2 (COVID-19) RNA [Presence] in Respiratory specimen by ERICA with probe detection Negative; No COVID-2 RNA detected by PCR. [facility] This lab was ordered by [facility] and reported by . ID Date Data Source [id number] 10/07/2020 12:00:00 AM EDT [facility] Name Value Range Interpretation Code Description Data Gini rce(s) Supporting Document(s) SARS-CoV2 Rapid Antigen Not Detected [facility] This lab was ordered by [facility] and reported by [facility]. ID Date Data Source [id number] 09/04/2020 02:28:00 PM EST [facility] 1 OrderSheet [facility] Emergency Department [address] [place] [address] Phone #: ext- [phone] 09/04/2020 14:13 Patient: [...] 09/04/2020 15:32 Tara EDCatch) Rosie Rodriguez P.A.-C; [id number] Acid STAT 15:27 09/04/2020 15:36 Shravan, Mary [...] 75 mL/hr Castillo Christensen R.N. 2 OrderSheet [facility] Emergency Department [address] [place] [address] Phone #: ext- [phone] 09/04/2020 14:13 Patient: [...] Entered Acknowledged InitialedNPO 15:27 09/04/2020 15:36 Castillo Cheney R.N. P.A.-C;Saline Lock 15:27 09/04/2020 15:44 Castillo Cheney R.N. P.A.-C;Dress Wounds 18:23 09/04/2020 18:31 Shravan,(Abx ointment) Castillo Christensen R.N. P.A.-C;[Electronically signed by Amparo Cheney R.N. (18:32 )][Electronically signed by Castillo BoggsA.-C (21:50 09/05/2020)][Electronically locked by Amparo Cheney R.N. (18:32 09/04/2020)] Name Value Range Interpretation Code Description Data Gini rce(s) Supporting Document(s) ID Date Data Source [id number] 09/04/2020 02:28:00 PM EST [facility] 1 Medication Reconciliation Report [facility] Emergency Department [address] [place] [address] Phone #: ext- [phone] 09/04/2020 14:13 Patient: [...] to Pharmacy - post op pain.Pharmacy - [facility] - [address] [place] [address]. FaxNumber: .cephalexin 500 mg capsule Take 1 capsule three times a day for 7 days -- Dispense 21 capsule.Refills: 0. Substitution permitted.[facility] - [facility] - [address] [place] [address]. FaxNumber: [phone]. 2 Medication Reconciliation Report [facility] Emergency Department [address] [place] [address] Phone #: ext- [phone] 09/04/2020 14:13 Patient: KATH SCHAEFER Sex: F : 2000 Age: 20yZofran 4 mg tablet Take 1 tablet three times a day for 3 days -- Dispense 9 tablet. Refills: 0.Substitution permitted.Pharmacy - [facility] - [address] ; [place] [address]. FaxNumber: . -- Castillo Boggs P.A.-C Name Value Range Interpretation Code Description Data Gini rce(s) Supporting Document(s) ID Date Data Source [id number] 09/04/2020 02:28:00 PM [facility] 1 Medication Administration Record [facility] Emergency Department [address] [place] [address] Phone #: ext- [phone] 09/04/2020 14:13 Patient: KATH SCHAEFER Sex: F : 2000 Age: 20yWeight: 86.1 kgHeight/Length: 64 inBMI: 32.6ALLERGIES: No Known Drug Allergy Date/Time Medication Administered Medication OrderedStart NS [IV] NS IV : Bolus 500 mL, then 7515:56 09/04/2020 Dose: IV Fluids mL/hrAmparo Cheney, R.NBretha Bolus: 500 mL over 30 minute(s)---- Dispensed: 500 mL bagStop Site: #1 right wssdyfq89:39 09/04/2020Amparo Cheney, R.NBerthaGiven ZOFRAN [IVP] (ONDANSETRON HCL) Zofran IVP 4 mg15:51 09/04/2020 Dose: 4 mg IVPAmparo Cheney, R.NBertha Site: #1 right forearmGiven BENADRYL [IVP] (DIPHENHYDRAMINE Benadryl IVP 25 mg15:56 09/04/2020 HCL)mAparo Cheney R.N. Dose: 25 mg IVP Site: #1 right forearmStart ofirmev * Ofirmev IV 1000 mg (NOW x1,15:57 09/04/2020 Dose: 1000 mg * Drip IV Infuse over 15 minutes)Amparo Cheney R.N.----Stop16:12 09/04/2020Amparo Cheney R.N.Start ROCEPHIN (1GM/50ML) [IVPB] Rocephin (1gm/50mL) IVPB 282143:22 09/04/2020 (CEFTRIAXONE SODIUM) mg with Dextrose 50 [...] rce(s) Supporting Document(s) ID Date Data Source [id number] 09/04/2020 02:28:00 PM EST [facility] 1 General Instructions [facility] Emergency Department [address] [place] [address] Phone #: ext- [phone] 09/04/2020 14:13 Patient: [...] Pharmacy - post op pain. Pharmacy - [facility] - [address] [place] [address]. . cephalexin 500 mg capsule Take 1 capsule three times a day for 7 days -- Dispense 21 capsule. Refills: 0. Substitution permitted. Pharmacy - [facility] - [address] [place] [address]. . Zofran 4 mg tablet Take 1 tablet three times a day for 3 days -- Dispense 9 tablet. Refills: 0. Substitution permitted. 2 General Instructions [facility] Emergency Department [address] [place] [address] Phone #: ext- [phone] 09/04/2020 14:13 Patient: KATH SCHAEFER Sex: F : 2000 Age: 20yPharmacy - [facility] - [address] ; [place] [address]. FaxNumber: .Follow-up:Return to the emergency department as needed. Follow up with your healthcare provider in about twodays if not better. Call for an appointment.Understanding of the discharge instructions verbalized by patient.Follow-up with: [facility], , , [address], [place], [address] Follow up. Call for the next available appointment. Reason for referral: evaluation, treatment and Toestablish care.Follow-up with: [facility], , , [address], [place], [address] Follow up Wednesday. Call for an appointment. Reason for referral: Dr. Hewitt indicated he wanted to see pton Wednesday. ADDITIONAL INFORMATIONUnknown Causes of Abdominal Pain (Female) 3 General Instructions [facility] Emergency Department [address] [place] [address] Phone #: ext- [phone] 09/04/2020 14:13 -- [...] for taking these medicines. 4 General Instructions [facility] Emergency Department [address] [place] [address] Phone #: ext- [phone] 09/04/2020 14:13 [id number] Sex: F : 2000 Age: 20yGenkaiser hayward care Rest as much as you can [...] begin to improve in thenext 24 hours.Call [phone] if any of these occur: Trouble breathing Confusion Fainting or loss of consciousness Rapid heart rate 5 General Instructions [facility] Emergency Department [address] [place] [address] Phone #: ext- [phone] 09/04/2020 14:13 Patient: [...] or water and you are getting dehydrated [id number] [employer]. [address] [place] [address], [place] [address]. All rights reserved. This information is not intended as asubstitute for professional medical care. Always follow your healthcare professional's instructions.Bladder Infection, Female (Adult) 6 General Instructions [facility] Emergency Department [address] [place] [address] Phone #: ext- [phone] 09/04/2020 14:13 Patient: [...] Urgent need to urinate 7 General Instructions [facility] Emergency Department [address] [place] [address] Phone #: ext- [phone] 09/04/2020 14:13 Patient: [...] a diaphragm for controlTreatment 8 General Instructions [facility] Emergency Department [address] [place] [address] Phone #: ext- [phone] 09/04/2020 14:13 Patient: [...] your healthcare provider.Follow-up care 9 General Instructions [facility] Emergency Department [address] [place] [address] Phone #: ext- [phone] 09/04/2020 14:13 Patient: [...] if the results will affect your treatment.Call [phone] if any of the following occur: Trouble [...] swelling in the outer vaginal area (labia) [phone] [employer]. [address] [place] [address], [place] [address]. All rights reserved. This information is not intended as asubstitute for professional medical care. Always follow your healthcare professional's instructions.Blood in the Urine 10 General Instructions [facility] Emergency Department [address] [place] [address] Phone #: ext- [phone] 09/04/2020 14:13 Patient: [...] using these medicines.Follow-up care 11 General Instructions [facility] Emergency Department [address] [place] [address] Phone #: ext- [phone] 09/04/2020 14:13 Patient: [...] the nose or gums or easy bruising 6867-1620 [employer]. [address] [place] [address]. All rights reserved. 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 2 Clinical Report - Nurses [facility] Emergency Department [address] [place] [address] Phone #: ext- [phone] 09/04/2020 14:13 Patient: KATH SCHAEFER Sex: F [...] patient. To treatment room. --14:09/04/20 Maria R Beintez R.N.PHYSICAL ASSESSMENTAmbulatory to room. Patient gowned.GENERAL / [...] PROGRESS NOTES 3 Clinical Report - Nurses [facility] Emergency Department [address] [place] [address] Phone #: ext- [phone] 09/04/2020 14:13 Patient: [...] understanding. --15:56 09/04/20 Amparo Cheney R.N.15:57 09/04/2020 [facility] * Drip IV 1000 mg --15:57 09/04/20 Amparo Cheney R.N.16:09 09/04/20. BP: 121/65. MAP: 83. HR: 54. RR: 16. O2 saturation: 98%. --16:10 09/04/20 Rosie Ramos ER Heyr581:12 09/04/2020 [facility] Drip IV Discontinued: completed. Total amount infused: [...] she states feels worse. Patient transported to PR by wheelchair with technician terminal and repeater. --16: Amparo Cheney R.N.17:05 09/04/20. BP: 129/73. MAP: 91. HR: 57. RR: 24. O2 saturation: 96%. --17:05 09/04/20 [facility] Rbdy093:10 09/04/2020 Morphine IVP 4 mg given over 3 minute(s) via site #1. Allergies verified and confirmed 5rights. IV patency established. IV site checked: no pain, redness, or swelling. IV flushed thoroughly pre-and post- medication administration. IVP given by RN. Information reviewed with patient. --17:13 09/04/20 4 Clinical Report - Nurses [facility] Emergency Department [address] [place] [address] Phone #: ext- [phone] 09/04/2020 14:13 Patient: KATH SCHAEFER Sex: F [...] O2 saturation: 100%. --18:03 09/04/20 [facility] Tech 18:03 09/04/20. Temp: 98.1 F. Pain level now: 12/02. --18:03 09/04/20 [facility] Tech1 Departure time: 18:32 09/04/2020. No learning barriers present. Discharge instructions provided and reviewed with the patient. Reviewed medication(s). Prescription(s) sent electronically to pharmacy. Reviewed wound care instructions. Reviewed referral to an draughtsman and a primary care physician. Activity restrictions (rest) reviewed. Work note given (x 3 days). Patient verbalized understanding. Written instructions provided in Dutch. --18:32 09/04/20 Amparo Cheney R.N.Locked/Released at 09/04/2020 18:32 by Amparo Cheney R.N. Name Value Range Interpretation Code Description Data Gini rce(s) Supporting Document(s) ID Date Data Source [id number] 09/04/2020 02:28:00 PM [facility] 1 Clinical Report - Physicians/Mid Levels [facility] Emergency Department [address] [place] [address] Phone #: ext- [phone] 09/04/2020 14:13 [id number] Sex: F : 2000 Age: 20y Time [...] Disease. 2 Clinical Report - Physicians/Mid Levels [facility] Emergency Department [address] [place] [address] Phone #: ext- [phone] 09/04/2020 14:13 Patient: [...] echymosis. 3 Clinical Report - Physicians/Mid Levels [facility] Emergency Department [address] [place] [address] Phone #: ext- [phone] 09/04/2020 14:13 [id number] Sex: F : 2000 Age: 20y Skin: [...] 1.5) 4 Clinical Report - Physicians/Mid Levels [facility] Emergency Department [address] [place] [address] Phone #: ext- [phone] 09/04/2020 14:13 Patient: [...] PROCEDURES 5 Clinical Report - Physicians/Mid Levels [facility] Emergency Department [address] [place] [address] Phone #: ext- [phone] 09/04/2020 14:13 Patient: KATH SCHAEFER Sex: F [...] was requested by: Castillo Boggs Reference #: [id number] PrescriptionsPatient Name: Kath SchaeferBirth Date: 2000Address: [address] [address]Mhr: Female 6 Clinical Report - Physicians/Mid [facility] Emergency Department [address] [place] [address] Phone #: ext- [phone] 09/04/2020 14:13 Patient: KATH SCHAEFER Sex: F : 2000 Age: 20y Rx Written Rx Dispensed Drug Quantity Days Supply Prescriber Name Payment Method Dispenser 11/16/2019 11/16/2019 hydrocodone- acetaminophen 5-325 mg tablet 8 2 Dillon Eaton Medicaid [facility] 11/13/2019 11/14/2019 oxycodone-acetaminophen 5-325 mg tablet 20 4 Pau Erickson MD Medicaid [facility] #13 Patient Name: Kath SchaeferBirth Date: 2000 Address: [address] [place] [address]Ixs: Female Rx Written Rx Dispensed Drug Quantity Days Supply Prescriber Name Payment Method Dispenser 08/31/2020 08/31/2020 oxycodone-acetaminophen 5-325 mg tab 18 3 uJan Johnson MD Medicaid [facility] #6. Disposition: Discharged home in good and [...] Medications: 7 Clinical Report - Physicians/Mid Levels [facility] Emergency Department [address] [place] [address] Phone #: ext- [phone] 09/04/2020 14:13 Patient: KATH SCHAEFER Sex: F : 2000 Age: 20y Percocet 5 mg-325 mg tablet 1 tablet three times a day for 3 days -- Dispense 9 tablet. Refills: 0. Substitution permitted. Note to Pharmacy - post op pain. Pharmacy - [facility] - [address] ; [place] [address]. . cephalexin 500 mg capsule Take 1 capsule three times a day for 7 days -- Dispense 21 capsule. Refills: 0. Substitution permitted. Pharmacy [facility] - [address] ; [place] [address]. . Zofran 4 mg tablet Take 1 tablet three times a day for 3 days -- Dispense 9 tablet. Refills: 0. Substitution permitted. [facility] - [address] ; [place] [address]. . Follow-up: Return to the emergency department as needed. Follow up with your healthcare provider in about two days if not better. Call for an appointment. Understanding of the discharge instructions verbalized by patient. Follow-up with: [facility], , , [address] [place] [address], [facility] Follow up. Call for the next available appointment. Reason for referral: evaluation, treatment and To establish care. Follow-up with: [facility], , , [address] [place] [address], [facility] Follow up Wednesday. Call for an appointment. Reason for referral: Dr. Hewitt indicated he wanted to see pt on Wednesday.(Electronically signed by Meng Ritchie 09/05/2020 21:50) Name Value Range Interpretation Code Description Data Gini rce(s) Supporting Document(s) ID Date Data Source [id number] 09/05/2020 10:16:00 AM EST [facility] [address] [place] [address] PHONE: [phone] FAX: [phone] Name .................. : SILVANO Low Acct Number.................. : [id number] ROOM. ................. : VT-02 MR Number ................... : [id number] Stay type ............. : E/R Discharge Date......... ... : 09/04/20 Admit Date ......... : 09/04/20 Admit Phys .................... : TRAM WALL Date of ....... : 2000 Family Phys ................... : NO PCP Phone .................. : [phone] Age ................................ : 20 Film# .................. .:[id number] Sex ................................. : F Unsigned transcriptions are preliminary reports and do not represent a medical or legal document CT ABD & PELVIS W/ IV ONLY [id number] COMPLETE:09/04/20 18:25 [facility] [place] Reason(s): PENDING CMP: abd pain s/p [...] 75 Isovue 370 Page 1 of 2 [facility] [address] [facility] [place] [address] PHONE: [phone] FAX: [phone] Name .................. : SILVANO LAGUERREIE Devante Acct Number.................. : [id number] ROOM. ................. : VT-02 MR Number ................... : [id number] Stay type ............. : E/R Discharge Date......... ... : 09/04/20 Admit Date ......... : 09/04/20 Admit Phys .................... : TRAM WALL Date of ....... : 2000 Family Phys ................... : NO PCP Phone .................. : [phone] Age ................................ : 20 Film# .................. .:[id number] Sex ................................. : F Unsigned transcriptions are preliminary reports and do not represent a medical or legal document CT ABD & PELVIS W/ IV ONLY [id number] COMPLETE:09/04/20 18:25 [facility] [place] Reason(s): PENDING CMP: abd pain s/p [...] rce(s) Supporting Document(s) ID Date Data Source [id number] 09/04/2020 04:37:00 PM EST [facility] Name Value Range Interpretation Code Description Data Gini rce(s) Supporting Document(s) COMPREHENSIVE METABOLIC PANEL [facility] COMPREHENSIVE METABOLIC PANEL Sodium [Moles/volume] in Serum or Plasma 137 mEq/L 134 - 153 [facility] Potassium [Moles/volume] in Serum or Plasma 4.3 mEq/L 3.6 - 5.0 [facility] Chloride [Moles/volume] in Serum or Plasma 104 mEq/L 98 - 107 [facility] Carbon dioxide, total [Moles/volume] in Serum or Plasma 28 MEQ/L 22 - 30 [facility] Glucose [Mass/volume] in Serum or Plasma 95 MG/DL 70 - 99 [facility] BUN 6 MG/DL 7 - 21 L [facility] Creatinine [Mass/volume] in Serum or Plasma 0.4 MG/DL 0.7 - 1.5 L [facility] BUN/CREAT 15 8 - 27 [facility] Protein [Mass/volume] in Serum or Plasma 6.6 G/DL 6.3 - 8.2 [facility] Albumin [Mass/volume] in Serum or Plasma 3.6 G/DL 3.9 - 5.0 L [facility] Globulin [Mass/volume] in Serum by calculation 3.0 GM/DL 2.4 - 3.2 [facility] A/G RATIO 1.2 0.8 - 2.0 [facility] Calcium [Mass/volume] in Serum or Plasma 9.0 MG/DL 8.4 - 10.2 [facility] Bilirubin.total [Mass/volume] in Serum or Plasma <0.7 MG/DL 0.2 - 1.3 [facility] Alkaline phosphatase [Enzymatic activity/volume] in Serum or Plasma 52 U/L 38 - 126 [facility] Aspartate aminotransferase [Enzymatic activity/volume] in Serum or Plasma 12 U/L 5 - 40 [facility] Alanine aminotransferase [Enzymatic activity/volume] in Seru m or Plasma 7 U/L 7 - 56 [facility] Anion gap 3 in Serum or Plasma 5.0 mmol/L 8.0 - 16.0 L [facility] AGE 20 yrs [facility] al NON-AA GFR >60 mL/min [facility] ital AFR AMER GFR >60 mL/min [facility] Male GFR In terprentation [...] >32 mL/min Normal ID Date Data Source [id number] 09/04/2020 04:34:00 PM [facility] Name Value Range Interpretation Code Description Data Gini rce(s) Supporting Document(s) Lipase [Enzymatic activity/volume] in Serum or Plasma 17 U/L 13 - 60 [facility] ID Date Data Source [id number] 09/04/2020 04:06:00 PM [facility] Name Value Range Interpretation Code Description Data Gini rce(s) Supporting Document(s) CBC W/AUTOMATED DIFF [facility] COMPLETE BLOOD COUNT Leukocytes [#/volume] in Blood by Automated count 5.6 10^3/uL 4.2 - 1 1.0 [facility] Erythrocytes [#/volume] in Blood by Automated count 3.11 10^6/uL 4. 20 - 5.40 L [facility] Hemoglobin [Mass/volume] in Blood 9.1 g/dL 12.0 - 16.0 L [facility] Hematocrit [Volume Fraction] of Blood by Automated count 28.6 % 3 7.0 - 47.0 L [facility] Erythrocyte mean corpuscular volume [Entitic volume] by Auto mated count 92.0 fL 81.0 - 101 [facility] Erythrocyte mean corpuscular hemoglobin [Entitic mass] by Automated count 29.3 pg 27.0 - 34.0 [facility] Erythrocyte mean corpuscular hemoglobin concentration [Mass/volume] by Automated count 31.8 g/dL 31.0 - 36.0 [facility] Erythrocyte distribution width [Ratio] by Automated count 12.8 % 11.5 - 14.5 [facility] Platelets [#/volume] in Blood by Automated count 256 10^3/uL 150 - 45 0 [facility] Platelet mean volume [Entitic volume] in Blood by Automated count 9.6 fL 7.4 - 10.4 [facility] Neutrophils/100 leukocytes in Blood by Automated count 59.6 % 37. 0 - 80.0 [facility] Lymphocytes/100 leukocytes in Blood by Manual count 26.2 % 25.0 - 40.0 [facility] Monocytes/100 leukocytes in Blood by Automated count 7.4 % 3.0 - 8.0 [facility] Eosinophils/100 leukocytes in Blood by Automated count 6.0 % 0.0 - 7.0 [facility] Basophils/100 leukocytes in Blood by Automated count 0.4 % 0.0 - 2.5 [facility] %IG 0.4 % 0.0 - 0.0 [facility] %NRBC 0.0 % 0.0 - 0.0 [facility] al Neutrophils [#/volume] in Blood by Automated count 3.36 10^3/uL 2.00 - 6.90 [facility] Lymphocytes [#/volume] in Blood by Automated count 1.48 10^3/uL 0.60 - 3.40 [facility] Monocytes [#/volume] in Blood by Automated count 0.42 10^3/uL 0.00 - 0.90 [facility] Eosinophils [#/volume] in Blood by Automated count 0.34 10^3/uL 0.00 - 0.70 [facility] Basophils [#/volume] in Blood by Automated count 0.02 10^3/uL 0.00 - 0.20 [facility] #IG 0.02 10^3/uL 0.00 - 0.10 [facility] #NRBC 0.00 10^3/uL 0.00 - 0.00 [facility] MANUAL DIFF NOT INDICATED [facility] RBC MORPH NOT INDICATED [facility] spital ID Date Data Source [id number] 09/04/2020 03:55:00 PM EST [facility] Name Value Range Interpretation Code Description Data Gini rce(s) Supporting Document(s) Lactate [Moles/volume] in Serum or Plasma 0.9 MMOL/L 0.2 - 2.2 [facility] ID Date Data Source [id number] 09/09/2020 11:52:00 AM EST [facility] Name Value Range Interpretation Code Description Data Gini rce(s) Supporting Document(s) CULTURE URINE [facility] spital _CULTURE URINE_$$[id number]$$676608$$939479$$789614$$759358$$179638$$963210$$279051$$648430$$ 630339$$933999$$348210$$014703$$349622$$640486$$957779$$940854$$400443$$344502$$ 901731$$681121$$853412$$569693$$344377$$712207$$917232$$845556 -- Continued on next page --Patient: SILVANO Low Order: [id number] Page 2Culture: CULTURE URINE Status: Final ==== -- Continued on next page --Patient: SILVANO Low Order: [id number] Page 2Culture: CULTURE URINE Status: Prelim ===== -- Continued on next page --Patient: SILVANO Low Order: [id number] Page 2Culture: CULTURE URINE Status: Prelim =====$$[id number]$$[id number] DATE/TIME: 09/09/2020 10:06Culture: CULTURE URINE Status: FinalIsolate 1 Enterococcus faecalis Flag: A . . . . . . .710,000-25,000 colony forming units per mL Previous result entered on 09/08/2020 13:53 ET Microbiological testing to rule out the presence of possible pathogensis in progress. Previous result entered on 09/07/2020 09:09 ET Specimen has been received and testing has been initiated.Urine Culture,Comprehensive: [id number] faecalis Flag: APatient: SILVANO Low Order: [id number] Page 3Culture: CULTURE URINE Status: Final ISOLATE 1 Enterococcus faecalis Isolate 1Antibiotic SHERRI IntUnits ug/mL Ciprofloxacin S S . . . . . .185-9Levofloxacin S S . . . . . .69152- 8Nitrofurantoin S S . . . . . .363-2Penicillin S S . . . . . .6932-8Tetracycline R R . . . . . .496-0Vancomycin S S . . . . . .524-9P1 Test performed by: [place] [employer] [facility] #: [id number] [address] [place] [address] [id number] [facility] [id number] Director : Aldair Hobbs MD NPI #:Carpet Loom Fixer : 09/08/20.1602.XMT.SENT REF 09/09/20.0620.XMT.SENT REF 09/09/20.1152.XMT.SENT REF ID Date Data Source [id number] 09/04/2020 03:39:00 PM EST [facility] Name Value Range Interpretation Code Description Data Gini rce(s) Supporting Document(s) URINALYSIS [facility] amaya URINALYSIS SOURCE R [facility] COLOR orange NORMAL: Yellow [facility] CLARITY turbid NORMAL: Clear [facility] Specific gravity of Urine by Test strip 1.015 1.001 - 1.030 [facility] pH 8 5 - 9 [facility] Glucose [Mass/volume] in Urine by Test strip NORM NORMAL: Negat [facility] Bilirubin.total [Presence] in Urine by Test strip NEG NORMAL: Negative [facility] Ketones [Presence] in Urine by Test strip NEG NORMAL: Negative [facility] Protein [Mass/volume] in Urine by Test strip 100 NORMAL: Negat srinivasa A [facility] Nitrite [Presence] in Urine by Test strip NEG NORMAL: Negative [facility] BLOOD 250 NORMAL: Negative A [facility] Leukocyte esterase [Presence] in Urine by Test strip 100 KATHRIN L: Negative A [facility] Urobilinogen [Mass/volume] in Urine by Test strip NOR less epifanio n 1.0 mg/dL [facility] MICROSCOPIC See Below [facility] ital WBC 15 - 20 NORMAL: NONE SEEN A [facility] Erythrocytes [#/volume] in Urine by Test strip 30 - 40 NORMAL: NON E SEEN A [facility] EPITHELIAL FEW NORMAL: NONE SEEN [facility] Bacteria [Presence] in Urine sediment by Light microscopy Tr kanwal NORMAL: NONE SEEN [facility] ID Date Data Source [id number] 09/02/2020 10:43:00 AM EST [facility] [address] [place] [address] PHONE: [phone] FAX: [phone] Name .................. : SILVANO LAGUERREIE Devante Acct Number.................. : [id number] ROOM. ................. : TR-05 Number ................... : [id number] Stay type ............. : E/R Discharge Date......... ... : Admit Date ......... : 08/30/20 Admit Phys .................... : COONEYNORM Date of ....... : 2000 Family Phys ................... : NO PCP Phone .................. : [phone] Age ................................ : 20 Film# .................. .:[id number] Sex ................................. : F Unsigned transcriptions are preliminary reports and do not represent a medical or legal document US PELVIC [id number] COMPLETE:08/30/20 22:31 DLA 3735 Reason(s): Pelvic Pain US TRANSVAGINAL(NON OB) [id number] COMPLETE:08/30/20 22:31 DLA 3736 (REASON FOR OBS: [...] Dictation Date: Copy for: EMERGENCY DEPT via [facility] Copy for: 710 MED REC DISCHARGED Page 1 of 1 Name Value Range Interpretation Code Description Data Gini rce(s) Supporting Document(s) ID Date Data Source [id number] 09/02/2020 10:43:00 AM [facility] [address] [place] [address] PHONE: [phone] FAX: [phone] Name .................. : SILVANO Low Acct Number.................. : [id number] ROOM. ................. : TR-05 MR Number ................... : [id number] Stay type ............. : E/R Discharge Date......... ... : Admit Date ......... : 08/30/20 Admit Phys .................... : COONEYNORM Date of ....... : 2000 Family Phys ................... : NO PCP Phone .................. : [phone] Age ................................ : 20 Film# .................. .:[id number] Sex ................................. : F Unsigned transcriptions are preliminary reports and do not represent a medical or legal document PELVIC [id number] COMPLETE:08/30/20 22:31 DLA 3735 Reason(s): Pelvic Pain US TRANSVAGINAL(NON OB) [id number] COMPLETE:08/30/20 22:31 DLA 3736 (REASON FOR OBS: [...] exclude ectopic. Electronically Reviewed and Signed By Knual Park MD , 09/02/20 10:43, AML Transcribe Initials: DEAN , Transcribe Date: 08/30/20 23:57, Dictation Date: Copy for: EMERGENCY DEPT via modem Copy for: 710 MED REC DISCHARGED Page 1 of 1 Name Value Range Interpretation Code Description Data Gini rce(s) Supporting Document(s) ID Date Data Source [id number] 09/01/2020 12:29:00 [place] [address] OPERATIVE SUMMARYNAME: SILVANO Low DATE OF : 2000ATTENDING PHYS: JUAN Hewitt MD DATE: 08/30/20 MR#: [id number] [id number] PROCEDURE: 08/31/20PREOPERATIVE DIAGNOSIS: 1. Severe pelvic [...] and pelvic lavage. 3. Uterine curettage.SURGEON: INES RichardsKETTERING HEALTH WASHINGTON TOWNSHIPSIDevante CARE PROVIDER: Dr. Cadena.TYPE OF ANESTHESIA: General.ESTIMATED BLOOD LOSS: 200 cc.IV FLUIDS USED: 1000 cc of LRURINE OUTPUT: approximately 300 ccPELVIC LAVAGE FLUID USED: 2400 cc of normal saline.DRAINAGE: None.IMPLANTS: None. [address] [place] [address] OPERATIVE SUMMARYNAME: SILVANO Low DATE OF : 2000ATTENDING PHYS: JUAN Hewitt MD DATE: 08/30/20 MR#: [id number]: None.SPECIMEN: Left fallopian tube and uterine curetting.BLOOD [...] again, pelvic lavage was performed. Please [address] [place] [address] OPERATIVE SUMMARYNAME: SILVANO Low DATE OF : 2000ATTENDING PHYS: JUAN Hewitt MD DATE: 08/30/20 MR#: [id number] that after the instruments were inserted into [...] rce(s) Supporting Document(s) ID Date Data Source [id number] 08/31/2020 09:05:00 AM EST [facility] ([facility]) Name Value Range Interpretation Code Description Data Gini rce(s) Supporting Document(s) Choriogonadotropin.beta subunit [Moles/volume] in Serum or P lasma 1613.0 mIU/mL [facility] ([facility]) Interpretation: Less than 5 mU/mL: Negative 6-10 mU/mL: Borderline (suggest repeat i n 48 hours) >10: Positive Approx HCG range (mU/mL) Weeks post LMP 5.4-708 mU/mL 3-4 Weeks 217-82046 mU/mL 5-6 Weeks 4059-748600 mU/mL 7-8 Weeks 78192-400436 mU/mL 9-10 Weeks 98735-98007 mU/mL 12-14 Weeks 72389-80426 mU/mL 15-16 Weeks 8240-84541 mU/mL 17-18 Weeks ID Date Data Source [id number] 08/31/2020 09:44:00 AM [facility] Name Value Range Interpretation Code Description Data Gini rce(s) Supporting Document(s) Choriogonadotropin.intact [Units/volume] in Serum or Plasma 1613.0 mI U/mL [facility] Interpr etation: Less than 5 mU/mL: Negative 6-10 mU/mL: Borderline (suggest repeat in 48 hours) >10: Positive Approx HCG range (mU/mL) Weeks post LMP 5.4-708 mU/mL 3-4 Weeks 217-20597 mU/mL 5-6 Weeks 4059-147543 mU/mL 7-8 Weeks 21296-416881 mU/mL 9-10 Weeks 84418-77822 mU/mL 12-14 Weeks 01461-65338 mU/mL 15-16 Weeks 8240- 20432 mU/mL 17-18 Weeks ID Date Data Source [id number] 08/31/2020 07:35:00 AM EST [facility] ([facility]) Name Value Range Interpretation Code Description Data Gini rce(s) Supporting Document(s) Chlamydia trachomatis,Erica Laboratory test result [facility] ([facility]) {SOURCE: Genital Neisseria gonorrhoeae,Erica Laboratory test result [facility] ([facility]) {SOURCE: Genital Source: Laboratory test result [facility] ([facility]) {SOURCE: Genital ID Date Data Source [id number] 09/02/2020 02:38:00 PM EST [facility] Name Value Range Interpretation Code Description Data Gini rce(s) Supporting Document(s) SOURCE: Genital [facility] Chlamydia trachomatis rRNA [Presence] in Unspecified specimen by Probe and target amplification method Negative Negative [facility] Neisseria gonorrhoeae rRNA [Presence] in Unspecified specimen by Probe and target amplification method Negative Negative [facility] ID Date Data Source [id number] 08/30/2020 08:54:00 PM EST [facility] 1 OrderSheet [facility] Emergency Department [address] [place] [address] Phone #: ext- [phone] 08/30/2020 20:54 Patient: [...] Minh,Symptomatic as Kathrin [facility] MD; Redefined by [facility])(08/30/20) (First Test)(Hospitalized)() (NotResident inCongregate CareSetting) (NotEmployed inHealthcare Setting)DIAGNOSTIC STUDY ORDERSOrder Description Priority Entered Acknowledged InitialedUS Pelvis STAT 21:34 08/30/2020 21:39 Javed 2 OrderSheet [facility] Emergency Department [address] [place] [address] Phone #: ext- [phone] 08/30/2020 20:54 Patient: KATH SCHAEFER Sex: F : 2000 Age: 20y(Oxygen?(No)) Kathrin [facility] MD; Linus RN NOTES: pelvic pain, please also r/o torsion Reason for Study: Pelvic PainMEDICATION/IV/DRIP/FLUID ORDERSOrder Description Priority Entered Acknowledged InitialedAcetaminophen IV 21:09 08/30/2020 21:25 Ugalf3729 mg (NOW x1, Kathrin [facility] MD; Linus [...] rce(s) Supporting Document(s) ID Date Data Source [id number] 08/30/2020 08:54:00 PM [place] [address] Medication Reconciliation Report [facility] Emergency Department [address] [place] [address] Phone #: ext- [phone] 08/30/2020 20:54 Patient: KATH SCHAEFER Sex: F [...] rce(s) Supporting Document(s) ID Date Data Source [id number] 08/30/2020 08:54:00 PM [place] [address] Medication Administration Record [facility] Emergency Department [address] [place] [address] Phone #: ext- [phone] 08/30/2020 20:54 Patient: KATH SCHAEFER Sex: F [...] rce(s) Supporting Document(s) ID Date Data Source [id number] 08/30/2020 08:54:00 PM [facility] 1 General Instructions [facility] Emergency Department [address] [place] [address] Phone #: ext- [phone] 08/30/2020 20:54 Patient: KATH SCHAEFER Sex: F : 2000 Age: 20yPelvic pain.ectoptic versus ovarian torsion.(Electronically signed by Kathrin [facility] MD 08/31/2020 06:48) Name Value Range Interpretation Code Description Data Gini rce(s) Supporting Document(s) ID Date Data Source [id number] 08/30/2020 08:54:00 PM [facility] 1 Clinical Report - Nurses [facility] Emergency Department [address] [place] [address] Phone #: ext- [phone] 08/30/2020 20:54 Patient: KATH SCHAEFER Sex: F : 2000 Age: 20yTRIAGEArrived by private vehicle. Historian: patient. Accompanied by family. 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 SEPSIS SCREEN NEGATIVE. No suspected or confirmedsigns of infection present. --20:58 08/30/20 Delisa Wilkinsonn20:55 08/30/20. BP: 144/84. HR: 68. RR: 20. O2 saturation: 100%. Temp: 97.4 F. Pain level now 05/04.--20:58 08/30/20 Carolin Wilkinson.Weight: 86.1 kg. Height/Length: 64 inches. BMI: 32.6. --20:57 08/30/20 Carolin Wilkinson.MedicationsNone. --20:58 08/30/20 Carolin Wilkinson.AllergiesNo Known Drug Allergy. --20:58 08/30/20 Carolin Wilkinson.PROBLEMS:no known problems.ADDITIONAL SURGERIES:.Tube removal after ectopic . [...] to Coronavirus. 2 Clinical Report - Nurses [facility] Emergency Department [address] [place] [address] Phone #: [phone] ext- [phone] 08/30/2020 20:54 Patient: KATH SCHAEFER Sex: F [...] Barriga RN 3 Clinical Report - Nurses [facility] Emergency Department [address] [place] [address] Phone #: ext- [phone] 08/30/2020 2 0:54 [...] --21:25 08/30/20 Javed Barriga RN 21:25 08/30/2020 [facility] * Drip IV 1000 MG INFUSED AT 400 ML/HR OVER 15 MINUTES --21:25 08/30/20 Javed Barriga RN 21:44 08/30/2020 [facility] Drip IV Discontinued: infused. Total amount infused: [...] Carolin Wilkinson. 4 Clinical Report - Nurses [facility] Emergency Department [address] [place] [address] Phone #: ext- [phone] 08/30/2020 20:54 Patient: KATH SCHAEFER Sex: F : 2000 Age: 20yLocked/Released at 08/31/2020 00:34 by Carolin Wilkinson Name Value Range Interpretation Code Description Data Gini rce(s) Supporting Document(s) ID Date Data Source [id number] 08/30/2020 08:54:00 PM EST [facility] 1 Clinical Report - Physicians/Mid Levels [facility] Emergency Department [address] [place] [address] Phone #: ext- [phone] 08/30/2020 20:54 Patient: [...] EXAM 2 Clinical Report - Physicians/Mid Levels [facility] Emergency Department [address] [place] [address] Phone #: ext- [phone] 08/30/2020 20:54 Patient: KATH SCHAEFER Sex: F [...] OR CLEARED MOLECULAR TESTS. NEGATIVE RESULTSDO NOT [id number] INFECTION AND SHOULD NOT BE USED THE [...] 0.0) 3 Clinical Report - Physicians/Mid Levels [facility] Emergency Department [address] [place] [address] Phone #: ext- [phone] 08/30/2020 20:54 [id number] Sex: F : 2000 Age: 20y % [...] Male GFR Interprentation 20-49 yrs >60 mL/min [place]09-88 yrs >56 mL/min Normal 60-69 yrs >49 mL/min Normal 70-79yrs>42 mL/min Normal 80 and above >35 mL/min Normal Female GFRInterpretation 20-39 yrs >60 mL/min Normal 40-49 yrs >58 mL/minNormal 50-59 yrs >51 mL/min Normal 60-69 yrs >45 mL/min Wfakiy95-42 yrs >39 mL/min Normal 80 and above >32 mL/min NormalType Rh: (NII: 08/30/2020 23:00) ( MsgRcvd 08/30/2020 23:50) Final results Test Result Flag Units (Reference) ABO GROUP O RH TYPE POSITIVE { ABO/RH REENTER O POSITIVEUS TRANSVAGINAL (NON OB): (NII: 08/30/2020 22:00) ( MsgRcvd 08/31/2020 00:01) In Progress Exam US TRANSVAGINAL(NON [place]) [place] [address] PHONE: [phone] FAX: [phone] Clinical Report - Physicians/Mid Levels [facility] Emergency Department [address] [place] [address] Phone #: ext- [phone] 08/30/2020 20:54 Patient: KATH SCHAEFER Sex: F : 2000 Age: 20y Name .................. : SILVANO Low Acct Number.................. : [id number] ROOM. ................. : [facility] MR Number ................... : [id number] Stay type ............. : E/R Discharge Date......... ... : Admit Date ......... : 08/30/20 Admit Phys .................... : COONEYNORM Date of ....... : 2000 Family Phys ................... : NO PCP Phone .................. : [phone] Age ................................ : 20 Film# .................. .:[id number] Sex ................................. : F Unsigned transcriptions are preliminary reports and do not represent a medical or legal document PELVIC [id number] COMPLETE:08/30/20 22:31 DLA 3735 Reason(s): Pelvic Pain US TRANSVAGINAL(NON OB) [id number] COMPLETE: 08/30/20 22:31 DLA 3736 (REASON FOR [...] please also r/o [place] [address] PHONE: [phone] FAX: [phone] Clinical Report - Physicians/Mid Levels [facility] Emergency Department [address] [place] [address] Phone #: [phone] qvo- [phone] 08/30/2020 20:54 Patient: KATH SCHAEFER Sex: F : 2000 Age: 20y Name .................. : SILVANO Low Acct Number.................. : [id number] ROOM. ................. : TR-05 MR Number ................... : [id number] Stay type ............. : E/R Discharge Date......... ... : Admit Date ......... : 08/30/20 Admit Phys ......... ........... : COONEYNORM Date of ....... : 2000 Family Phys ................... : NO PCP Phone .................. : [phone] Age ................................ : 20 Film# .................. .:[id number] Sex ................................. : F Unsigned transcriptions are preliminary reports and do not represent a medical or legal document PELVIC [id number] COMPLETE:08/30/20 22:31 DLA 3735 Reason(s): Pelvic Pain US TRANSVAGINAL(NON OB) [id number] COMPLETE: 22:31 DLA 3736 (REASON FOR OBS: [...] Weeks post LMP 5.4- 708 mU/mL 3-4 Mggqk406-32596 mU/mL 5-6 Weeks 4059- 067289 mU/mL 7-8 Tydux73737-300560 mU/mL 9-10 Weeks 47715-71948 mU/mL 12-14 Twmra76289-87962 mU/mL 15-16 Weeks 8240-03205 mU/mL 17-18 Weeks 6 Clinical Report - Physicians/Mid Levels [facility] Emergency Department [address] [place] [address] Phone #: ext- [phone] 08/30/2020 20:54 Patient: [...] to left ovary. I spoke to the print line feeder, Faye. She was unable to discern whether [...] rce(s) Supporting Document(s) ID Date Data Source [id number] 08/30/2020 08:54:00 PM EST [facility] Addenda for KATH SCHAEFER VisitID: [id number] Date: 22:45faxed med rec and overview to at 2248(Electronically signed by Faviola Finney - 08/30/2020 22:45) Name Value Range Interpretation Code Description Data Gini rce(s) Supporting Document(s) ID Date Data Source [id number] 08/31/2020 12:20:00 AM EST [facility] ([facility]) Name Value Range Interpretation Code Description Data Gini rce(s) Supporting Document(s) Source Laboratory test result [facility] ([facility]) SOURCE: Clean Catch Urinalysis Laboratory test result [facility] ([facility]) SOURCE: Clean Catch Clarity Laboratory test result [facility] ([facility]) SOURCE: Clean Catch Color Laboratory test result [facility] ([facility]) SOURCE: Clean Catch pH 6 5-9 [facility] ([facility]) SOURCE: Clean Catch Spec [place] 1.025 1.001-1.030 [facility] ([facility]) SOURCE: Clean Catch Bilirubin Laboratory test result [facility] ([facility]) SOURCE: Clean Catch Glucose Laboratory test result [facility] ([facility]) SOURCE: Clean Catch Ketone Laboratory test result [facility] ([facility]) SOURCE: Clean Catch Protein Laboratory test result [facility] ([facility]) SOURCE: Clean Catch Nitrite Laboratory test result [facility] ([facility]) SOURCE: Clean Catch Blood 10 Abnormal (applies to non-numeric res ults) [facility] ([facility]) SOURCE: Clean Catch Leuk Est Laboratory test result [facility] ([facility]) SOURCE: Clean Catch Urobilinogen Laboratory test result [facility] ([facility]) SOURCE: Clean Catch WBC Laboratory test result [facility] ([facility]) SOURCE: Clean Catch Microscopic Laboratory test result M [facility] ([facility]) SOURCE: Clean Catch RBC Laboratory test result [facility] ([facility]) SOURCE: Clean Catch Epithelial Laboratory test result [facility] ([facility]) SOURCE: Clean Catch Bacteria Laboratory test result [facility] ([facility]) SOURCE: Clean Catch Mucous Laboratory test result [facility] ([facility]) SOURCE: Clean Catch ID Date Data Source [id number] 08/31/2020 12:40:00 AM EST [facility] Name Value Range Interpretation Code Description Data Gini rce(s) Supporting Document(s) URINALYSIS [facility] amaya URINALYSIS SOURCE Clean Catch [facility] COLOR yellow NORMAL: Yellow [facility] CLARITY clear NORMAL: Clear [facility] Specific gravity of Urine by Test strip 1.025 1.001 - 1.030 [facility] pH 6 5 - 9 [facility] Gl[facility] [Mass/volume] in Urine by Test strip NORM NORMAL: Negat [facility] Bilirubin.total [Presence] in Urine by Test strip NEG NORMAL: Negative [facility] Ketones [Presence] in Urine by Test strip NEG NORMAL: Negative [facility] Protein [Mass/volume] in Urine by Test strip NEG NORMAL: Negat [facility] Nitrite [Presence] in Urine by Test strip NEG NORMAL: Negative [facility] BLOOD 10 NORMAL: Negative A [facility] Leukocyte esterase [Presence] in Urine by Test strip NEG KATHRNI L: Negative [facility] Urobilinogen [Mass/volume] in Urine by Test strip NOR less epifanio n 1.0 mg/dL [facility] MICROSCOPIC See Below [facility] ital WBC 0 - 1 NORMAL: NONE SEEN [facility] Erythrocytes [#/volume] in Urine by Test strip 1 - 3 NORMAL: NON E SEEN [facility] EPITHELIAL FEW NORMAL: NONE SEEN [facility] Bacteria [Presence] in Urine sediment by Light microscopy Tr kanwal NORMAL: NONE SEEN [facility] Mucus [Presence] in Urine sediment by Light microscopy Trace NORMAL: NONE SEEN [facility] ID Date Data Source [id number] 08/30/2020 11:50:00 PM EST [facility] Name Value Range Interpretation Code Description Data Gini rce(s) Supporting Document(s) ABO group [Type] in Blood [facility] Rh [Type] in Blood POSITIVE [facility] { ABO/RH REENTER O POSITIVE ID Date Data Source [id number] 08/30/2020 11:26:00 PM EST [facility] Name Value Range Interpretation Code Description Data Gini rce(s) Supporting Document(s) COMPREHENSIVE METABOLIC PANEL [facility] COMPREHENSIVE METABOLIC PANEL Sodium [Moles/volume] in Serum or Plasma 137 mEq/L 134 - 153 [facility] Potassium [Moles/volume] in Serum or Plasma 4.2 mEq/L 3.6 - 5.0 [facility] Chloride [Moles/volume] in Serum or Plasma 100 mEq/L 98 - 107 [facility] Carbon dioxide, total [Moles/volume] in Serum or Plasma 29 MEQ/L 22 - 30 [facility] Glucose [Mass/volume] in Serum or Plasma 100 MG/DL 70 - 99 H [facility] BUN 12 MG/DL 7 - 21 [facility] Creatinine [Mass/volume] in Serum or Plasma 0.6 MG/DL 0.7 - 1.5 L [facility] BUN/CREAT 20 8 - 27 [facility] al Protein [Mass/volume] in Serum or Plasma 6.7 G/DL 6.3 - 8.2 [facility] Albumin [Mass/volume] in Serum or Plasma 4.0 G/DL 3.9 - 5.0 [facility] Globulin [Mass/volume] in Serum by calculation 2.7 GM/DL 2.4 - 3.2 [facility] A/G RATIO 1.5 0.8 - 2.0 [facility] Calcium [Mass/volume] in Serum or Plasma 9.6 MG/DL 8.4 - 10.2 [facility] Bilirubin.total [Mass/volume] in Serum or Plasma <0.7 MG/DL 0.2 - 1.3 [facility] Alkaline phosphatase [Enzymatic activity/volume] in Serum or Plasma 73 U/L 38 - 126 [facility] Aspartate aminotransferase [Enzymatic activity/volume] in Serum or Plasma 15 U/L 5 - 40 [facility] Alanine aminotransferase [Enzymatic activity/volume] in Seru m or Plasma 10 U/L 7 - 56 [facility] Anion gap 3 in Serum or Plasma 8.0 mmol/L 8.0 - 16.0 [facility] AGE 20 yrs [facility] al NON-AA GFR >60 mL/min [facility] ital AFR AMER GFR >60 mL/min [facility] Ho spital Male GFR In terprentation [...] >32 mL/min Normal ID Date Data Source [id number] 08/30/2020 11:17:00 PM EST [facility] Name Value Range Interpretation Code Description Data Gini rce(s) Supporting Document(s) CBC W/AUTOMATED DIFF [facility] COMPLETE BLOOD COUNT Leukocytes [#/volume] in Blood by Automated count 13.0 10^3/uL 4.2 - 11.0 H [facility] Erythrocytes [#/volume] in Blood by Automated count 3.55 10^6/uL 4. 20 - 5.40 L [facility] Hemoglobin [Mass/volume] in Blood 10.4 g/dL 12.0 - 16.0 L [facility] Hematocrit [Volume Fraction] of Blood by Automated count 31.8 % 3 7.0 - 47.0 L [facility] Erythrocyte mean corpuscular volume [Entitic volume] by Auto mated count 89.6 fL 81.0 - 101 [facility] Erythrocyte mean corpuscular hemoglobin [Entitic mass] by Automated count 29.3 pg 27.0 - 34.0 [facility] Erythrocyte mean corpuscular hemoglobin concentration [Mass/volume] by Automated count 32.7 g/dL 31.0 - 36.0 [facility] Erythrocyte distribution width [Ratio] by Automated count 12.6 % 11.5 - 14.5 [facility] Platelets [#/volume] in Blood by Automated count 267 10^3/uL 150 - 45 0 [facility] Platelet mean volume [Entitic volume] in Blood by Automated count 9.6 fL 7.4 - 10.4 [facility] Neutrophils/100 leukocytes in Blood by Automated count 84.0 % 37. 0 - 80.0 H [facility] Lymphocytes/100 leukocytes in Blood by Manual count 8.6 % 25.0 - 40.0 L [facility] Monocytes/100 leukocytes in Blood by Automated count 5.8 % 3.0 - 8.0 [facility] Eosinophils/100 leukocytes in Blood by Automated count 0.8 % 0.0 - 7.0 [facility] Basophils/100 leukocytes in Blood by Automated count 0.3 % 0.0 - 2.5 [facility] %IG 0.5 % 0.0 - 0.0 [facility] %NRBC 0.0 % 0.0 - 0.0 [facility] al Neutrophils [#/volume] in Blood by Automated count 10.90 10^3/uL 2. 00 - 6.90 H [facility] Lymphocytes [#/volume] in Blood by Automated count 1.11 10^3/uL 0.60 - 3.40 [facility] Monocytes [#/volume] in Blood by Automated count 0.75 10^3/uL 0.00 - 0.90 [facility] Eosinophils [#/volume] in Blood by Automated count 0.10 10^3/uL 0.00 - 0.70 [facility] Basophils [#/volume] in Blood by Automated count 0.04 10^3/uL 0.00 - 0.20 [facility] #IG 0.07 10^3/uL 0.00 - 0.10 [facility] #NRBC 0.00 10^3/uL 0.00 - 0.00 [facility] MANUAL DIFF NOT INDICATED [facility] RBC MORPH NOT INDICATED [facility] spital ID Date Data Source [id number] 08/30/2020 10:48:00 PM EST [facility] ([facility]) Name Value Range Interpretation Code Description Data Gini rce(s) Supporting Document(s) Laboratory test finding (navigational concept) Laboratory test result [facility] ([facility]) First test?: Y~Employed in healthcare?: N~Symptomatic as defined by CDC?: N~Hospitalized?: Y Laboratory test finding (navigational concept) Laboratory test result [facility] ([facility]) First test?: Y~Employed in healthcare?: N~Symptomatic as defined by CDC?: N~Hospitalized?: Y ID Date Data Source [id number] 08/30/2020 10:48:00 PM EST [facility] Name Value Range Interpretation Code Description Data Gini rce(s) Supporting Document(s) COVID19 Case rprt NOT DETECTED [facility] This lab was ordered by [facility] and reported by [facility]. ID Date Data Source [id number] 08/30/2020 11:18:00 PM EST [facility] NOT DETECTEDNOT DETECTED{ PROC EDURAL CONTROL VALID [...] rce(s) Supporting Document(s) ID Date Data Source [id number] 08/30/2020 10:18:00 PM [facility] Name Value Range Interpretation Code Description Data Gini rce(s) Supporting Document(s) Choriogonadotropin.intact [Units/volume] in Serum or Plasma 2399.0 mI U/mL [facility] Interpr etation: Less than 5 mU/mL: Negative 6-10 mU/mL: Borderline (suggest repeat in 48 hours) >10: Positive Approx HCG range (mU/mL) Weeks post LMP 5.4-708 mU/mL 3-4 Weeks 217-53416 mU/mL 5-6 Weeks 4059-955080 mU/mL 7-8 Weeks 41882-943991 mU/mL 9-10 Weeks 92102-76094 mU/mL 12-14 Weeks 78791-02525 mU/mL 15-16 Weeks 8240- 12826 mU/mL 17-18 Weeks ID Date Data Source [id number] 08/19/2020 04:27:00 PM [facility] 1 OrderSheet [facility] Emergency Department [address] [place] [address] Phone #: ext- [phone] 08/19/2020 16:12 Patient: [...] rce(s) Supporting Document(s) ID Date Data Source [id number] 08/19/2020 04:27:00 PM [place] [address] Medication Reconciliation Report [facility] Emergency Department [address] [place] [address] Phone #: ext- [phone] 08/19/2020 16:12 Patient: [...] Name Value Range Interpretation Code Description Data [facility] rce(s) Supporting Document(s) ID Date Data Source [id number] 08/19/2020 04:27:00 PM [facility] 1 Medication Administration Record [facility] Emergency Department [address] [place] [address] Phone #: [phone]- [phone] 08/19/2020 16:12 Patient: KATH SCHAEFER Sex: F : 2000 Age: 20yWeight: 72.5 kgHeight/Length: 64 inBMI: 27.5ALLERGIES: None Date/Time Medication Administered Medication OrderedGiven TDAP [IM] Tdap IM 0.5 mL17:15 08/19/2020 Dose: 0.5 mL lAeshia Garza R.N. Name Value Range Interpretation Code Description Data Gini rce(s) Supporting Document(s) ID Date Data Source [id number] 08/19/2020 04:27:00 PM EST [facility] 1 General Instructions [facility] Emergency Department [address] [place] [address] Phone #: ext- [phone] 08/19/2020 16:12 Patient: [...] your laceration at home: 2 General Instructions [facility] Emergency Department [address] [place] [address] Phone #: ext- [phone] 08/19/2020 16:12 [id number] Sex: [facility] : 2000 Age: 20y During [...] pain medicines were prescribed, you can use uejo-dlv-idpwyli pain medicines. Follow instructions for taking these [...] scalp in about 7 to 10 days.Call [phone] if this occurs: Bleeding can't be controlled [...] Wound edges re- open 3 General Instructions [facility] Emergency Department [address] [place] [address] Phone #: ext- [phone] 08/19/2020 16:12 Patient: KATH SCHAEFER Sex: F : 2000 Age: 20y [phone] [employer]. [address] [place] [address]. All rights reserved. This information is not [...] pain medicines were prescribed, you can use [id number] pain medicines. Follow instructions for taking these [...] to 10 days.Call 911 4 General Instructions [facility] Emergency Department [address] [place] [address] Phone #: ext- [phone] 08/19/2020 16:12 Patient: [...] out before 7 days Wound edges re-open [phone] [employer]. [address] [place] [address], [place] [address]. All rights reserved. This information is not intended as asubstitute for professional medical care. Always follow your healthcare professional's instructions. You have been given the following additional information: Laceration, Scalp: Sutures or Shital Laceration, Scalp: Sutures or Shital(Electronically signed by Shawna Gomes M.D. 08/19/2020 20:54) Name Value Range Interpretation Code Description Data Gini rce(s) Supporting Document(s) ID Date Data Source [id number] 08/19/2020 04:27:00 PM EST [facility] 1 Clinical Report - Nurses [facility] Emergency Department [address] [place] [address] Phone #: ext- [phone] 08/19/2020 16:12 Patient: KATH SCHAEFER Sex: F : 2000 Age: 20yTRIAGEArrived by private vehicle. Historian: patient. Unaccompanied. ( something fell on her head, possiblesalt rock).Acuity: LEVEL 3.Chief Complaint: LACERATION.Alert.Pre-hospital notification of patient arrival was not received.Location of injuries: left frontal area. Occurred at home. Occurred 16:00 08/19/2020. The patient hashad a headache. 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 SEPSIS SCREEN NEGATIVE. [...] R.N.ADDITIONAL SURGERIES: 2 Clinical Report - Nurses [facility] Emergency Department [address] [place] [address] Phone #: ext- [phone] 08/19/2020 16:12 Patient: [...] Hong R.N. 3 Clinical Report - Nurses [facility] Emergency Department [address] [place] [address] Phone #: ext- [phone] 08/19/2020 16:12 [id number] Sex[facility] F : 2000 Age: 20y HEENT: [...] saline. Procedure: wound repaired with shital (4 shitla). Total time of assist / procedure: 15 minutes. --17:12 08/19/20 Rona Leon R.N. 17:15 08/19/2020 TDAP IM 0.5 mL given(Lot#: [id number], expiration date: 06/01/2022, Dinkey Dispatcher: [employer]). Given in the right deltoid. Allergies verified [...] Patient Refused all vital signs. --17:36 08/19/20 [facility] ER Tech1 Departure time: late entry - 17:30 08/19/2020. Condition at departure: stable. ( Provider aware of all VS refusal). No learning barriers present. Discharge instructions provided and reviewed with the patient. Reviewed warnings (please see paper copy). Reviewed wound care and ice instructions. Activity restrictions reviewed. Work note given. Patient verbalized understanding. Written instructions provided in Dutch. The patient was discharged by the physician. She was discharged home and accompanied by ad operations associate. She left ambulatory and via private vehicle. Podiatric Surgeon driving. --17:38 08/19/20 Aleshia Boland R.N. 17:38 08/19/20. Pain level now deferred. --17:38 08/19/20 Aleshia Boland R.N.Locked/Released at 08/19/2020 17:38 by Aleshia Boland R.N. 4 Clinical Report - Nurses [facility] Emergency Department [address] [place] [address] Phone #: ext- [phone] 08/19/2020 16:12 Patient: KATH SCHAEFER Sex: F : 2000 Age: 20y Name Value Range Interpretation Code Description Data Gini rce(s) Supporting Document(s) ID Date Data Source [id number] 08/19/2020 04:27:00 PM EST [facility] 1 Clinical Report - Physicians/Mid Levels [facility] Emergency Department [address] [place] [address] Phone #: ext- [phone] 08/19/2020 16:12 Patient: [...] allergies. 2 Clinical Report - Physicians/Mid Levels [facility] Emergency Department [address] [place] [address] Phone #: ext- [phone] 08/19/2020 16:12 Patient: KATH SCHAEFER Sex: F [...] present. 3 Clinical Report - Physicians/Mid Levels [facility] Emergency Department [address] [place] [address] Phone #: ext- [phone] 08/19/2020 16:12 [id number] Sex: F : 2000 Age: 20yINSTRUCTIONS Apply [...] pressure 126 mm[Hg] 126 mm[Hg] M [facility] ([facility]) Diastolic blood pressure 86 mm[Hg] 86 mm[Hg] [facility] ([facility]) Heart rate 112 /min 112 /min [facility] ([facility]) Body temperature 98.5 [degF] 98.5 [degF] [facility] ([facility]) Respiratory rate 20 /min 20 /min [facility] ( [facility]) Oxygen saturation in Arterial blood by Pulse oximetry 98 % 98 % [facility] ([facility]) ID Date Data Source [id number] 05/16/2021 04:53:00 AM EDT [facility] Name Value Range Interpretation Code Description Data Source(s) Weight Measurement Method 1 1 [facility] Weight (Calculated Kilograms) 64.86 64.86 [facility] Weight 2288 2288 [facility] Temperature Source 7 7 [facility] Temperature 98.1 98.1 [facility] Respiratory Effort 1 1 [facility] Respiratory Rate 16 16 [facility] Pulse Assessment Method 4 4 [facility] Pulse Rate 72 72 [facility] Height (Calculated Centimeters) 157.48 157. 48 [facility] Height 62 62 [facility] Blood Pressure 101/66 101/66 [facility] Body Mass Index (BMI) 26.2 26.2 [facility] Weight Measurement Method 1 1 [facility] Weight (Calculated Kilograms) 64.86 64.86 [facility] Weight 2288 2288 [facility] Temperature Source 7 7 [facility] Temperature 98.1 98.1 [facility] Respiratory Effort 1 1 [facility] Respiratory Rate 16 16 [facility] Pulse Assessment Method 4 4 [facility] Pulse Rate 72 72 [facility] Height (Calculated Centimeters) 157.48 157. 48 [facility] Height 62 62 [facility] Blood Pressure 101/66 101/66 [facility] Body Mass Index (BMI) 26.2 26.2 [facility] Weight Measurement Method 1 1 [facility] Weight (Calculated Kilograms) 64.86 64.86 [facility] Weight 2288 2288 [facility] Temperature Source 7 7 [facility] Temperature 98.1 98.1 [facility] Respiratory Effort 1 1 [facility] Respiratory Rate 16 16 [facility] Pulse Assessment Method 4 4 [facility] Pulse Rate 72 72 [facility] Height (Calculated Centimeters) 157.48 157. 48 [facility] Height 62 62 [facility] Blood Pressure 101/66 101/66 [facility] Body Mass Index (BMI) 26.2 26.2 [facility] Weight Measurement Method 1 1 [facility] Weight (Calculated Kilograms) 64.86 64.86 [facility] Weight 2288 2288 [facility] Temperature Source 7 7 [facility] Temperature 97.7 97.7 [facility] Respiratory Effort 1 1 [facility] Respiratory Rate 16 16 [facility] Pulse Assessment Method 4 4 [facility] Pulse Rate 72 72 [facility] Height (Calculated Centimeters) 157.48 157. 48 [facility] Height 62 62 [facility] Blood Pressure 115/72 115/72 [facility] Body Mass Index (BMI) 26.2 26.2 [facility] Weight Measurement Method 1 1 [facility] Weight (Calculated Kilograms) 64.86 64.86 [facility] Weight 2288 2288 [facility] Temperature Source 6 6 [facility] Temperature 98.8 98.8 [facility] Respiratory Effort 1 1 [facility] Respiratory Rate 16 16 [facility] Pulse Assessment Method 1 1 [facility] Pulse Rate 68 68 [facility] Height (Calculated Centimeters) 157.48 157. 48 [facility] Height 62 62 [facility] Blood Pressure 122/68 122/68 [facility] Body Mass Index (BMI) 26.2 26.2 [facility] ID Date Data Source [id number] 09/17/2020 10:23:20 AM [facility] Name Value Range Interpretation Code Description Data Source(s) WEIGHT RECORDED 190.00 pounds 190.00 pounds [facility] Height 63 Inches 063 Inches [facility] Patient Treatment Plan of Care Planned Activity Planned Date Details Description Data Source (s) Thiamine 100 MG Oral Tablet 05/02/2021 12:00:00 AM [facility] Multi-Vit/Mineral (Multivitamin Tablet) 1 TAB TAB 05/02/2021 12: 00:00 AM [facility] Ibuprofen 600 MG Oral Tablet 05/02/2021 12:00:00 AM [facility] Folic Acid 1 MG Oral Tablet 05/02/2021 12:00:00 AM [facility] Clonidine Hydrochloride 0.1 MG Oral Tablet 05/02/2021 12:00:00 AM [facility]
[2021-05-30 20:34] LABS: BASO % 0.6 % (0.0-1.0); EOS # 0.2 10^3/uL (0.0-0.5); EOS % 4.6 % (0.0-3.0); HEMATOCRIT 35.1 % (36.0-47.0); LYMPH # 1.6 10^3/uL (1.5-5.0); LYMPH % 30.3 % (24.0-44.0); MEAN CORPUSCULAR HEMOGLOBIN 27.8 pg (27.0-33.0); MEAN CORPUSCULAR HGB CONC 31.3 g/dl (32.0-36.5); MEAN CORPUSCULAR VOLUME 88.9 fl (80.0-96.0); MONO # 0.5 10^3/uL (0.0-0.8); MONO % 9.3 % (2.0-8.0); NEUTROPHILS # 2.9 10^3/uL (1.5-8.5); PLATELET COUNT, AUTOMATED 307 10^3/uL (150-450); RED BLOOD COUNT 3.95 10^6/uL (4.00-5.40); WHITE BLOOD COUNT 5.2 10^3/uL (4.0-10.0)
[2021-05-30 20:48] LABS: HCG, SERUM QUALITATIVE NEGATIVE (NEGATIVE)
[2021-05-30 20:55] LABS: ABG BASE EXCESS 2.5 (-2.0-2.0); ABG HCO3 27.9 MEQ/L (22.0-26.0); ABG O2 SATURATION 98.6 % (95.0-99.0); ABG PARTIAL PRESSURE CO2 46.8 mmHg (35.0-45.0); ABG PARTIAL PRESSURE O2 148.4 mmHg (75.0-100.0); ABG STANDARD HCO3 26.7 MEQ/L (22.0-26.0); ABG TOTAL CO2 29.3 MEQ/L (22.0-29.0); ABG pH (ARTERIAL) 7.393 UNITS (7.350-7.450)
[2021-05-30 20:56] LABS: ACETAMINOPHEN LEVEL 8.5 UG/ML (10.0-30.0); ALBUMIN 3.6 GM/DL (3.2-5.2); ALT/SGPT 61 U/L (12-78); BILIRUBIN,DIRECT 0.2 MG/DL (0.0-0.2); BILIRUBIN,TOTAL 0.7 MG/DL (0.2-1.0); BLOOD UREA NITROGEN 11 MG/DL (7-18); CALCIUM LEVEL 9.8 MG/DL (8.5-10.1); CARBON DIOXIDE LEVEL 29 MEQ/L (21-32); CHLORIDE LEVEL 101 MEQ/L (98-107); CPK CREATINE PHOSPHOKINASE 80 U/L (26-192); ETHYL ALCOHOL (ETHANOL) 0.004 % (0.000-0.010); GLOMERULAR FILTRATION RATE > 60.0 (>60); GLUCOSE, FASTING 98 MG/DL (70-100); POTASSIUM SERUM 3.5 MEQ/L (3.5-5.1); SALICYLATE LEVEL < 1.7 MG/DL (5.0-30.0); SODIUM LEVEL 139 MEQ/L (136-145); TOTAL PROTEIN 7.5 GM/DL (6.4-8.2)
[2021-05-30 21:11] LABS: RSV AMPLIFICATION NEGATIVE (NEGATIVE)
[2021-05-31 01:50] LABS: AMPHETAMINES LEVEL URINE POSITIVE (NEGATIVE); BARBITURATES URINE NEGATIVE (NEGATIVE); BENZODIAZEPINES URINE NEGATIVE (NEGATIVE); CANNABINOIDS URINE POSITIVE (NEGATIVE); COCAINE METABOLITE URINE NEGATIVE (NEGATIVE); METHADONE URINE NEGATIVE (NEGATIVE); OPIATES URINE NEGATIVE (NEGATIVE); PHENCYCLIDINE URINE NEGATIVE (NEGATIVE)
[2021-05-31] MEDS ORDERED: HOME MED LIST COMPLETE! XX SCH (03:00)
[2021-05-31] MEDS ORDERED: MOM 30ML SUSPENSION UDC PO PRN (08:30)
[2021-05-31] MEDS ORDERED: MAALOX 30 ML SUSP *UDC PO PRN (08:30)
[2021-05-31] MEDS ORDERED: traZODone 50 MG TAB PO PRN (08:30)
--- OUTSIDE RECORDS SUMMARY | 2021-05-31 08:36 | CCD ---
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 19 [...] 400 MG Q4H PRN 04/28 2250 UNVPOAssessment/Plan ([facility])Impression1. Desire for detoxification2. Admitted to substance misuse [...] Device:No Mechanical ProphylaxisReason no mechanical deviceNot neededTime [id number] on 04/28/212253 by Calvin Lawtno MBBS, M.D.Transcribed on 04/28/212253 by Calvin Lawton [...] rce(s) Supporting Document(s) ID Date Data Source [id number] 04/28/2021 07:45:00 PM EDT [facility] Name Value Range Interpretation Code Description Data Gini rce(s) Supporting Document(s) SARS-CoV-2 (COVID-19) RNA [Presence] in Respiratory specimen by ERICA with probe detection Negative; No COVID-2 RNA detected by PCR. [facility] This lab was ordered by [facility] and reported by . ID Date Data Source [id number] 10/07/2020 12:00:00 AM EDT [facility] Name Value Range Interpretation Code Description Data Gini rce(s) Supporting Document(s) SARS-CoV2 Rapid Antigen Not Detected [facility] This lab was ordered by [facility] and reported by [facility]. ID Date Data Source [id number] 09/04/2020 02:28:00 PM EST [facility] 1 OrderSheet [facility] Emergency Department [address] [place] [address] Phone #: ext- [phone] 09/04/2020 14:13 Patient: [...] 09/04/2020 15:32 Tara EDCatch) Rosie Rodriguez P.A.-C; Ajuw0Jzknct Acid STAT 15:27 09/04/2020 15:36 Shravan, Mary [...] 75 mL/hr Castillo Christensen R.N. 2 OrderSheet [facility] Emergency Department [address] [place] [address] Phone #: ext- [phone] 09/04/2020 14:13 Patient: [...] rce(s) Supporting Document(s) ID Date Data Source [id number] 09/04/2020 02:28:00 PM EST [facility] 1 Medication Reconciliation Report [facility] Emergency Department [address] [place] [address] Phone #: ext- [phone] 09/04/2020 14:13 Patient: [...] to Pharmacy - post op pain.Pharmacy - [facility] #[facility] - [address] [place] [address]. FaxNumber: .cephalexin 500 mg capsule Take 1 capsule three times a day for 7 days -- Dispense 21 capsule.Refills: 0. Substitution permitted.[facility] - [facility] #[address] - [address] [place] [address]. FaxNumber: [phone]. 2 Medication Reconciliation Report [facility] Emergency Department [address] [place] [address] Phone #: ext- [phone] 09/04/2020 14:13 Patient: KATH SCHAEFER Sex: F : 2000 Age: 20yZofran 4 mg tablet Take 1 tablet three times a day for 3 days -- Dispense 9 tablet. Refills: 0.Substitution permitted.Pharmacy - [facility] #43 - [address] [facility] ; [place] [address]. FaxNumber: . -- Castillo Boggs P.A.-C Name Value Range Interpretation Code Description Data Gini rce(s) Supporting Document(s) ID Date Data Source [id number] 09/04/2020 02:28:00 PM [facility] 1 Medication Administration Record [facility] Emergency Department [address] [place] [address] Phone #: ext- [phone] 09/04/2020 14:13 Patient: KATH SCHAEFER Sex: F : 2000 Age: 20yWeight: 86.1 kgHeight/Length: 64 inBMI: 32.6ALLERGIES: No Known Drug Allergy Date/Time Medication Administered Medication OrderedStart NS [IV] NS IV : Bolus 500 mL, then 7515:56 09/04/2020 Dose: IV Fluids mL/hrAmparo Cheney, R.NBertha Bolus: 500 mL over 30 minute(s)---- Dispensed: 500 mL bagStop Site: #1 right qkkfass89:39 09/04/2020Amparo Cheney, R.NBerthaGiven ZOFRAN [IVP] (ONDANSETRON HCL) [...] R.N.Start ROCEPHIN (1GM/50ML) [IVPB] Rocephin (1gm/50mL) IVPB 428005:22 09/04/2020 (CEFTRIAXONE SODIUM) mg with Dextrose 50 [...] rce(s) Supporting Document(s) ID Date Data Source [id number] 09/04/2020 02:28:00 PM EST [facility] 1 General Instructions [facility] Emergency Department [address] [place] [address] Phone #: ext- [phone] 09/04/2020 14:13 Patient: [...] Pharmacy - post op pain. Pharmacy - [facility] #[address] - [address] [place] [address]. . cephalexin 500 mg capsule Take 1 capsule three times a day for 7 days -- Dispense 21 capsule. Refills: 0. Substitution permitted. Pharmacy - [facility] #78 - [address] [place] [address]. . Zofran 4 mg tablet Take 1 tablet three times a day for 3 days -- Dispense 9 tablet. Refills: 0. Substitution permitted. 2 General Instructions [facility] Emergency Department [address] [place] [address] Phone #: ext- [phone] 09/04/2020 14:13 Patient: KATH SCHAEFER Sex: F : 2000 Age: 20yPharmacy - [facility] #98 - [address] [address] [facility] ; [place] [address]. FaxNumber: .Follow-up:Return to the emergency department as needed. Follow up with your healthcare provider in about twodays if not better. Call for an appointment.Understanding of the discharge instructions verbalized by patient.Follow-up with: [facility], , , [address], [place], [address] Follow up. Call for the next available appointment. Reason for referral: evaluation, treatment and Toestablish care.Follow-up with: [facility], , , [address], [place], [address] Follow up Wednesday. Call for an appointment. Reason for referral: Dr. Hewitt indicated he wanted to see pton Wednesday. ADDITIONAL INFORMATIONUnknown Causes of Abdominal Pain (Female) 3 General Instructions [facility] Emergency Department [address] [place] [address] Phone #: ext- [phone] 09/04/2020 14:13 -- [...] for taking these medicines. 4 General Instructions [facility] Emergency Department [address] [place] [address] Phone #: ext- [phone] 09/04/2020 14:13 [id number] Sex[facility] F : 2000 Age: 20[place] [facility] Rest as much as you can [...] begin to improve in thenext 24 hours.Call [phone] if any of these occur: Trouble breathing Confusion Fainting or loss of consciousness Rapid heart rate 5 General Instructions [facility] Emergency Department [address] [place] [address] Phone #: ext- [phone] 09/04/2020 14:13 Patient: [...] or water and you are getting dehydrated [phone] [employer]. [address] [place] [address], [place] [address]. All rights reserved. This information is not intended as asubstitute for professional medical care. Always follow your healthcare professional's instructions.Bladder Infection, Female (Adult) 6 General Instructions [facility] Emergency Department [address] [place] [address] Phone #: ext- [phone] 09/04/2020 14:13 Patient: [...] Urgent need to urinate 7 General Instructions [facility] Emergency Department [address] [place] [address] Phone #: ext- [phone] 09/04/2020 14:13 Patient: [...] a diaphragm for controlTreatment 8 General Instructions [facility] Emergency Department [address] [place] [address] Phone #: ext- [phone] 09/04/2020 14:13 Patient: [...] your healthcare provider.Follow-up care 9 General Instructions [facility] Emergency Department [address] [place] [address] Phone #: ext- [phone] 09/04/2020 14:13 Patient: [...] if the results will affect your treatment.Call [phone] if any of the following occur: Trouble [...] swelling in the outer vaginal area (labia) [phone] [employer]. [address] [place] [address], [place] [address]. All rights reserved. This information is not intended as asubstitute for professional medical care. Always follow your healthcare professional's instructions.Blood in the Urine 10 General Instructions [facility] Emergency Department [address] [place] [address] Phone #: ext- [phone] 09/04/2020 14:13 Patient: [...] using these medicines.Follow-up care 11 General Instructions [facility] Emergency Department [address] [place] [address] Phone #: ext- [phone] 09/04/2020 14:13 Patient: [...] the nose or gums or easy bruising [phone] [employer]. [address] [place] [address]. All rights reserved. This information is not [...] rce(s) Supporting Document(s) ID Date Data Source [id number] 09/04/2020 02:28:00 PM EST [facility] 1 Clinical Report - Nurses [facility] Emergency Department [address] [place] [address] Phone #: ext- [phone] 09/04/2020 14:13 Patient: [...] 08/26 that she believes need to comeout.).Treatment CLINICAL WRITER:None.SEPSIS SCREEN: SIRS SCREEN NEGATIVE: heart rate greater [...] Benitez R.N. 2 Clinical Report - Nurses [facility] Emergency Department [address] [place] [address] Phone #: ext- [phone] 09/04/2020 14:13 Patient: KATH SCHAEFER Sex: F [...] PROGRESS NOTES 3 Clinical Report - Nurses [facility] Emergency Department [address] [place] [address] Phone #: ext- [phone] 09/04/2020 14:13 Patient: [...] understanding. --15:56 09/04/20 Amparo Cheney R.N.15:57 09/04/2020 [facility] * Drip IV 1000 mg --15:57 09/04/20 Amparo Cheney R.N.16:09 09/04/20. BP: 121/65. MAP: 83. HR: 54. RR: 16. O2 saturation: 98%. --16:10 09/04/20 [facility] Ramos ER Unpw651:12 09/04/2020 [facility] Drip IV Discontinued: completed. Total amount infused: [...] she states feels worse. Patient transported to ID by wheelchair with electrical controls technician. --16: Amparo Cheney R.N.17:05 09/04/20. BP: 129/73. MAP: 91. HR: 57. RR: 24. O2 saturation: 96%. --17:05 09/04/20 [facility] Vxhp847:10 09/04/2020 Morphine IVP 4 mg given over 3 minute(s) via site #1. Allergies verified and confirmed 5rights. IV patency established. IV site checked: no pain, redness, or swelling. IV flushed thoroughly pre-and post- medication administration. IVP given by RN. Information reviewed with patient. --17:13 09/04/20 4 Clinical Report - Nurses [facility] Emergency Department [address] [place] [address] Phone #: ext- [phone] 09/04/2020 14:13 Patient: KATH SCHAEFER Sex: F [...] RR: 16. O2 saturation: 100%. --18:03 09/04/20 [facility] Tech 18:03 09/04/20. Temp: 98.1 F. Pain level now: 12/02. --18:03 09/04/20 [facility] Tech1 Departure time: 18:32 09/04/2020. No learning barriers present. Discharge instructions provided and reviewed with the patient. Reviewed medication(s). Prescription(s) sent electronically to pharmacy. Reviewed wound care instructions. Reviewed referral to an mosaic tiler and a primary care physician. Activity restrictions (rest) reviewed. Work note given (x 3 days). Patient verbalized understanding. Written instructions provided in Samoan. --18:32 09/04/20 Amparo Cheney R.N.Locked/Released at 09/04/2020 18:32 by Amparo Cheney R.N. Name Value Range Interpretation Code Description Data Gini rce(s) Supporting Document(s) ID Date Data Source [id number] 09/04/2020 02:28:00 PM [facility] 1 Clinical Report - Physicians/Mid Levels [facility] Emergency Department [address] [place] [address] Phone #: ext- [phone] 09/04/2020 14:13 [id number] Sex: F : 2000 Age: 20y Time [...] Disease. 2 Clinical Report - Physicians/Mid Levels [facility] Emergency Department [address] [place] [address] Phone #: ext- [phone] 09/04/2020 14:13 Patient: [...] echymosis. 3 Clinical Report - Physicians/Mid Levels [facility] Emergency Department [address] [place] [address] Phone #: ext- [phone] 09/04/2020 14:13 [id number] Sex: F : 2000 Age: 20y Skin: [...] 1.5) 4 Clinical Report - Physicians/Mid Levels [facility] Emergency Department [address] [place] [address] Phone #: ext- [phone] 09/04/2020 14:13 Patient: [...] PROCEDURES 5 Clinical Report - Physicians/Mid Levels [facility] Emergency Department [address] [place] [address] Phone #: ext- [phone] 09/04/2020 14:13 Patient: KATH SCHAEFER Sex: F [...] was requested by: Castillo Boggs Reference #: [id number]' PrescriptionsPatient Name: Kath SchaeferBirth Date: 2000Address: [address] [address]Smh: Female 6 Clinical Report - Physicians/Mid [facility] Emergency Department [address] [place] [address] Phone #: ext- [phone] 09/04/2020 14:13 Patient: KATH SCHAEFER Sex: F : 2000 Age: 20y Rx Written Rx Dispensed Drug Quantity Days Supply Prescriber Name Payment Method Dispenser 11/16/2019 11/16/2019 hydrocodone- acetaminophen 5-325 mg tablet 8 2 Dillon Eaton Medicaid [facility] 11/13/2019 11/14/2019 oxycodone-acetaminophen 5-325 mg tablet 20 4 Pau Erickson MD Medicaid [facility] #13 Patient Name: Kath SchaeferBirth Date: 2000 Address: [address] [place] [id number]: Female Rx Written Rx Dispensed Drug Quantity Days Supply Prescriber Name Payment Method Dispenser 08/31/2020 08/31/2020 oxycodone-acetaminophen 5-325 mg tab 18 3 Juan Johnson MD Medicaid [facility] #6. Disposition: Discharged home in good and [...] Medications: 7 Clinical Report - Physicians/Mid Levels [facility] Emergency Department [address] [place] [address] Phone #: ext- [phone] 09/04/2020 14:13 Patient: KATH SCHAEFER Sex: F : 2000 Age: 20y Percocet 5 mg-325 mg tablet 1 tablet three times a day for 3 days -- Dispense 9 tablet. Refills: 0. Substitution permitted. Note to Pharmacy - post op pain. Pharmacy - [facility] #10 - [address] [facility] ; [place] [address]. . cephalexin 500 mg capsule Take 1 capsule three times a day for 7 days -- Dispense 21 capsule. Refills: 0. Substitution permitted. Pharmacy [facility] #46 - [address] [facility] ; [place] [address]. . Zofran 4 mg tablet Take 1 tablet three times a day for 3 days -- Dispense 9 tablet. Refills: 0. Substitution permitted. [facility] #30 - [address] [facility] ; [place] [address]. . Follow-up: Return to the emergency department as needed. Follow up with your healthcare provider in about two days if not better. Call for an appointment. Understanding of the discharge instructions verbalized by patient. Follow-up with: [facility], , , [address] [place] [address], On license of [facility] Follow up. Call for the next available appointment. Reason for referral: evaluation, treatment and To establish care. Follow-up with: [facility], , , [address] [place] [address], On license of [facility] Follow up Wednesday. Call for an appointment. Reason for referral: Dr. Hewitt indicated he wanted to see pt on Wednesday.(Electronically signed by Meng Ritchie 09/05/2020 21:50) Name Value Range Interpretation Code Description Data Gini rce(s) Supporting Document(s) ID Date Data Source [id number] 09/05/2020 10:16:00 AM EST [facility] [address] [place] [address] PHONE: [phone] FAX: [phone] Name .................. : SILVANO Low Acct Number.................. : [id number] ROOM. ................. : VT-02 MR Number ................... : [id number] Stay type ............. : E/R Discharge Date......... ... : 09/04/20 Admit Date ......... : 09/04/20 Admit Phys .................... : TRAM WALL Date of ....... : 2000 Family Phys ................... : NO PCP Phone .................. : [phone] Age ................................ : 20 Film# .................. .:[id number] Sex ................................. : F Unsigned transcriptions are preliminary reports and do not represent a medical or legal document CT ABD & PELVIS W/ IV ONLY [id number] COMPLETE:09/04/20 18:25 [facility] [place] [place] 4019 Reason(s): PENDING CMP: abd pain s/p [...] 75 Isovue 370 Page 1 of 2 [facility] [address] [place] [address] PHONE: [phone] FAX: [phone] Name .................. : SILVANO LAGUERREIE Devante Acct Number.................. : [id number] ROOM. ................. : VT-02 MR Number ................... : [id number] Stay type ............. : E/R Discharge Date......... ... : 09/04/20 Admit Date ......... : 09/04/20 Admit Phys .................... : TRAM WALL Date of ....... : 2000 Family Phys ................... : NO PCP Phone .................. : [phone] Age ................................ : 20 Film# .................. .:[id number] Sex ................................. : F Unsigned transcriptions are preliminary reports and do not represent a medical or legal document CT ABD & PELVIS W/ IV ONLY [id number] COMPLETE:09/04/20 18:25 [facility] [place] [place] [address] Reason(s): PENDING CMP: abd pain s/p [...] rce(s) Supporting Document(s) ID Date Data Source [id number] 09/04/2020 04:37:00 PM EST [facility] Name Value Range Interpretation Code Description Data Gini rce(s) Supporting Document(s) COMPREHENSIVE METABOLIC PANEL [facility] COMPREHENSIVE METABOLIC PANEL Sodium [Moles/volume] in Serum or Plasma 137 mEq/L 134 - 153 [facility] Potassium [Moles/volume] in Serum or Plasma 4.3 mEq/L 3.6 - 5.0 [facility] Chloride [Moles/volume] in Serum or Plasma 104 mEq/L 98 - 107 [facility] Carbon dioxide, total [Moles/volume] in Serum or Plasma 28 MEQ/L 22 - 30 [facility] Glucose [Mass/volume] in Serum or Plasma 95 MG/DL 70 - 99 [facility] BUN 6 MG/DL 7 - 21 L [facility] Creatinine [Mass/volume] in Serum or Plasma 0.4 MG/DL 0.7 - 1.5 L [facility] BUN/CREAT 15 8 - 27 [facility] Protein [Mass/volume] in Serum or Plasma 6.6 G/DL 6.3 - 8.2 [facility] Albumin [Mass/volume] in Serum or Plasma 3.6 G/DL 3.9 - 5.0 L [facility] Globulin [Mass/volume] in Serum by calculation 3.0 GM/DL 2.4 - 3.2 [facility] A/G RATIO 1.2 0.8 - 2.0 [facility] Calcium [Mass/volume] in Serum or Plasma 9.0 MG/DL 8.4 - 10.2 [facility] Bilirubin.total [Mass/volume] in Serum or Plasma <0.7 MG/DL 0.2 - 1.3 [facility] Alkaline phosphatase [Enzymatic activity/volume] in Serum or Plasma 52 U/L 38 - 126 [facility] Aspartate aminotransferase [Enzymatic activity/volume] in Serum or Plasma 12 U/L 5 - 40 [facility] Alanine aminotransferase [Enzymatic activity/volume] in Seru m or Plasma 7 U/L 7 - 56 [facility] Anion gap 3 in Serum or Plasma 5.0 mmol/L 8.0 - 16.0 L [facility] AGE [address] [facility] al NON-AA GFR >60 mL/min [facility] ital AFR AMER GFR >60 mL/min [facility] Ho spital Male GFR In terprentation 20-49 [...] >32 mL/min Normal ID Date Data Source [id number] 09/04/2020 04:34:00 PM [facility] Name Value Range Interpretation Code Description Data Gini rce(s) Supporting Document(s) Lipase [Enzymatic activity/volume] in Serum or Plasma 17 U/L 13 - 60 [facility] ID Date Data Source [id number] 09/04/2020 04:06:00 PM [facility] Name Value Range Interpretation Code Description Data Gini rce(s) Supporting Document(s) CBC W/AUTOMATED DIFF [facility] COMPLETE BLOOD COUNT Leukocytes [#/volume] in Blood by Automated count 5.6 10^3/uL 4.2 - 1 1.0 [facility] Erythrocytes [#/volume] in Blood by Automated count 3.11 10^6/uL 4. 20 - 5.40 L [facility] Hemoglobin [Mass/volume] in Blood 9.1 g/dL 12.0 - 16.0 L [facility] Hematocrit [Volume Fraction] of Blood by Automated count 28.6 % 3 7.0 - 47.0 L [facility] Erythrocyte mean corpuscular volume [Entitic volume] by Auto mated count 92.0 fL 81.0 - 101 [facility] Erythrocyte mean corpuscular hemoglobin [Entitic mass] by Automated count 29.3 pg 27.0 - 34.0 [facility] Erythrocyte mean corpuscular hemoglobin concentration [Mass/volume] by Automated count 31.8 g/dL 31.0 - 36.0 [facility] Erythrocyte distribution width [Ratio] by Automated count 12.8 % 11.5 - 14.5 [facility] Platelets [#/volume] in Blood by Automated count 256 10^3/uL 150 - 45 0 [facility] Platelet mean volume [Entitic volume] in Blood by Automated count 9.6 fL 7.4 - 10.4 [facility] Neutrophils/100 leukocytes in Blood by Automated count 59.6 % 37. 0 - 80.0 [facility] Lymphocytes/100 leukocytes in Blood by Manual count 26.2 % 25.0 - 40.0 [facility] Monocytes/100 leukocytes in Blood by Automated count 7.4 % 3.0 - 8.0 [facility] Eosinophils/100 leukocytes in Blood by Automated count 6.0 % 0.0 - 7.0 [facility] Basophils/100 leukocytes in Blood by Automated count 0.4 % 0.0 - 2.5 [facility] %IG 0.4 % 0.0 - 0.0 [facility] %NRBC 0.0 % 0.0 - 0.0 [facility] al Neutrophils [#/volume] in Blood by Automated count 3.36 10^3/uL 2.00 - 6.90 [facility] Lymphocytes [#/volume] in Blood by Automated count 1.48 10^3/uL 0.60 - 3.40 [facility] Monocytes [#/volume] in Blood by Automated count 0.42 10^3/uL 0.00 - 0.90 [facility] Eosinophils [#/volume] in Blood by Automated count 0.34 10^3/uL 0.00 - 0.70 [facility] Basophils [#/volume] in Blood by Automated count 0.02 10^3/uL 0.00 - 0.20 [facility] #IG 0.02 10^3/uL 0.00 - 0.10 [facility] ospital #NRBC 0.00 10^3/uL 0.00 - 0.00 [facility] ospital MANUAL DIFF NOT INDICATED [facility] RBC MORPH NOT INDICATED [facility] spital ID Date Data Source [id number] 09/04/2020 03:55:00 PM EST [facility] Name Value Range Interpretation Code Description Data Gini rce(s) Supporting Document(s) Lactate [Moles/volume] in Serum or Plasma 0.9 MMOL/L 0.2 - 2.2 [facility] ID Date Data Source [id number] 09/09/2020 11:52:00 AM EST [facility] Name Value Range Interpretation Code Description Data Gini rce(s) Supporting Document(s) CULTURE URINE [facility] spital _CULTURE URINE_$$[id number]$$011564$$769745$$808698$$385688$$342367$$553295$$756849$$044526$$ 575720$$549820$$420779$$219423$$547257$$370852$$890968$$198178$$349627$$195562$$ 326663$$736955$$723957$$233995$$746349$$371830$$689962$$199297 -- Continued on next page --Patient: SILVANO Low Order: [id number] Page 2Culture: CULTURE URINE Status: Final ==== -- Continued on next page --Patient: SILVANO Low Order: [id number] Page 2Culture: CULTURE URINE Status: Prelim ===== -- Continued on next page --Patient: SILVANO Low Order: [id number] Page 2Culture: CULTURE URINE Status: Prelim =====$$[id number]$$[id number] DATE/TIME: 09/09/2020 10:06Culture: CULTURE URINE Status: FinalIsolate 1 Enterococcus faecalis Flag: A . . . . . . .710,000-25,000 colony forming units per mL Previous result entered on 09/08/2020 13:53 ET Microbiological testing to rule out the presence of possible pathogensis in progress. Previous result entered on 09/07/2020 09:09 ET Specimen has been received and testing has been initiated.Urine Culture,Comprehensive: [id number] faecalis Flag: APatient: SILVANO Low Order: [id number] Page 3Culture: CULTURE URINE Status: Final ISOLATE 1 Enterococcus faecalis Isolate 1Antibiotic SHERRI IntUnits ug/mL Ciprofloxacin S S . . . . . .185-9Levofloxacin S S . . . . . .40275- 8Nitrofurantoin S S . . . . . .363-2Penicillin S S . . . . . .6932-8Tetracycline R R . . . . . .496-0Vancomycin S S . . . . . .524-9P1 Test performed by: [facility] #: [id number] [address] [place] [address] [id number] [facility] [id number] Director : Aldair Hobbs MD NPI #:[employer] Associate : 09/08/20.1602.XMT.SENT REF 09/09/20.0620.XMT.SENT REF 09/09/20.1152.XMT.SENT REF ID Date Data Source [id number] 09/04/2020 03:39:00 PM EST [facility] Name Value Range Interpretation Code Description Data Gini rce(s) Supporting Document(s) URINALYSIS [facility] amaya URINALYSIS SOURCE [facility] COLOR orange NORMAL: Yellow [facility] CLARITY turbid NORMAL: Clear [facility] spital Specific gravity of Urine by Test strip 1.015 1.001 - 1.030 [facility] pH 8 5 - 9 [facility] Glucose [Mass/volume] in Urine by Test strip NORM NORMAL: [facility]at [facility] Bilirubin.total [Presence] in Urine by Test strip NEG NORMAL: Negative [facility] Ketones [Presence] in Urine by Test strip NEG NORMAL: Negative [facility] Protein [Mass/volume] in Urine by Test strip 100 NORMAL: Negat srinivasa A [facility] Nitrite [Presence] in Urine by Test strip NEG NORMAL: Negative [facility] BLOOD 250 NORMAL: Negative A [facility] Leukocyte esterase [Presence] in Urine by Test strip 100 KATHRIN L: Negative A [facility] Urobilinogen [Mass/volume] in Urine by Test strip NOR less epifanio n 1.0 mg/dL [facility] MICROSCOPIC See Below [facility] Hosp ital WBC 15 - 20 NORMAL: NONE SEEN A [facility] Erythrocytes [#/volume] in Urine by Test strip 30 - 40 NORMAL: NON E SEEN A [facility] EPITHELIAL FEW NORMAL: NONE SEEN [facility] Bacteria [Presence] in Urine sediment by Light microscopy Tr kanwal NORMAL: NONE SEEN [facility] ID Date Data Source [id number] 09/02/2020 10:43:00 AM EST [facility] [address] [place] [address] PHONE: [phone] FAX: [phone] Name .................. : SILVANO LAGUERREIE Devante Acct Number.................. : [id number] ROOM. ................. : TR-05 Number ................... : [id number] Stay type ............. : E/R Discharge Date......... ... : Admit Date ......... : 08/30/20 Admit Phys .................... : COONEYNORM Date of ....... : 2000 Family Phys ................... : NO PCP Phone .................. : [phone] Age ................................ : 20 Film# .................. .:[id number] Sex ................................. : F Unsigned transcriptions are preliminary reports and do not represent a medical or legal document US PELVIC [id number] COMPLETE:08/30/20 22:31 DLA 3735 Reason(s): Pelvic Pain US TRANSVAGINAL(NON OB) [id number] COMPLETE:08/30/20 22:31 DLA 3736 (REASON FOR OBS: [...] Dictation Date: Copy for: [facility]GENC[facility] DEPT [facility] Copy for: 710 MED REC DISCHARGED Page 1 of 1 Name Value Range Interpretation Code Description Data Gini rce(s) Supporting Document(s) ID Date Data Source [id number] 09/02/2020 10:43:00 AM [facility] [address] [place] [address] PHONE: [phone] FAX: [phone] Name .................. : SILVANO Low Acct Number.................. : [id number] ROOM. ................. : TR-05 MR Number ................... : [id number] Stay type ............. : E/R Discharge Date......... ... : Admit Date ......... : 08/30/20 Admit Phys .................... : COONEYNORM Date of ....... : 2000 Family Phys ................... : NO PCP Phone .................. : [phone] Age ................................ : 20 Film# .................. .:[id number] Sex ................................. : F Unsigned transcriptions are preliminary reports and do not represent a medical or legal document PELVIC [id number] COMPLETE:08/30/20 22:31 DLA 3735 Reason(s): Pelvic Pain US TRANSVAGINAL(NON OB) [id number] COMPLETE:08/30/20 22:31 DLA 3736 (REASON FOR OBS: [...] rce(s) Supporting Document(s) ID Date Data Source [id number] 09/01/2020 12:29:00 [place] [address] OPERATIVE SUMMARYNAME: SILVANO Low DATE OF : 2000ATTENDING PHYS: JUAN Hewitt MD DATE: 08/30/20 MR#: [id number] [id number] PROCEDURE: 08/31/20PREOPERATIVE DIAGNOSIS: 1. Severe pelvic [...] and pelvic lavage. 3. Uterine curettage.SURGEON: INES RichardsAVITA HEALTH SYSTEM [facility]NT[facility]IO HOSPITALSIDevante CARE PROVIDER: Dr. Cadena.TYPE OF ANESTHESIA: General.ESTIMATED BLOOD LOSS: 200 cc.IV FLUIDS USED: 1000 cc of LRURINE OUTPUT: approximately 300 ccPELVIC LAVAGE FLUID USED: 2400 cc of normal saline.DRAINAGE: None.IMPLANTS: None. [address] [place] [address] OPERATIVE SUMMARYNAME: SILVANO Low DATE OF : 2000ATTENDING PHYS: JUAN Hewitt MD DATE: 08/30/20 MR#: [id number]: None.SPECIMEN: Left fallopian tube and uterine curetting.BLOOD [...] again, pelvic lavage was performed. Please [address] [place] [address] OPERATIVE SUMMARYNAME: SILVANO Low DATE OF : 2000ATTENDING PHYS: JUAN Hewitt MD DATE: 08/30/20 MR#: [id number] that after the instruments were inserted into [...] rce(s) Supporting Document(s) ID Date Data Source [id number] 08/31/2020 09:05:00 AM EST [facility] ([facility]) Name Value Range Interpretation Code Description Data Gini rce(s) Supporting Document(s) Choriogonadotropin.beta subunit [Moles/volume] in Serum or P lasma 1613.0 mIU/mL [facility] ([facility]) Interpretation: Less than 5 mU/mL: Negative 6-10 mU/mL: Borderline (suggest repeat i n 48 hours) >10: Positive Approx HCG range (mU/mL) Weeks post LMP 5.4-708 mU/mL 3-4 Weeks 217-21407 mU/mL 5-6 Weeks 4059-311286 mU/mL 7-8 Weeks 03727-428027 mU/mL 9-10 Weeks 45313-24995 mU/mL 12-14 Weeks 43546-64361 mU/mL 15-16 Weeks 8240-13847 mU/mL 17-18 Weeks ID Date Data Source [id number] 08/31/2020 09:44:00 AM [facility] Name Value Range Interpretation Code Description Data Gini rce(s) Supporting Document(s) Choriogonadotropin.intact [Units/volume] in Serum or Plasma 1613.0 mI U/mL [facility] Interpr etation: Less than 5 mU/mL: Negative 6-10 mU/mL: Borderline (suggest repeat in 48 hours) >10: Positive Approx HCG range (mU/mL) Weeks post LMP 5.4-708 mU/mL 3-4 Weeks 217-82001 mU/mL 5-6 Weeks 4059-776778 mU/mL 7-8 Weeks 68142-240882 mU/mL 9-10 Weeks 34594-38020 mU/mL 12-14 Weeks 36175-34502 mU/mL 15-16 Weeks 8240- 31637 mU/mL 17-18 Weeks ID Date Data Source [id number] 08/31/2020 07:35:00 AM EST [facility] ([facility]) Name Value Range Interpretation Code Description Data Gini rce(s) Supporting Document(s) Chlamydia trachomatis,Erica Laboratory test result [facility] ([facility]) {SOURCE: Genital Neisseria gonorrhoeae,Erica Laboratory test result [facility] ([facility]) {SOURCE: Genital Source: Laboratory test result [facility] ([facility]) {SOURCE: Genital ID Date Data Source [id number] 09/02/2020 02:38:00 PM EST [facility] Name Value Range Interpretation Code Description Data Gini rce(s) Supporting Document(s) SOURCE: Genital [facility] Chlamydia trachomatis rRNA [Presence] in Unspecified specimen by Probe and target amplification method Negative Negative [facility] Neisseria gonorrhoeae rRNA [Presence] in Unspecified specimen by Probe and target amplification method Negative Negative [facility] ID Date Data Source [id number] 08/30/2020 08:54:00 PM EST [facility] 1 OrderSheet [facility] Emergency Department [address] [place] [address] Phone #: ext- [phone] 08/30/2020 20:54 Patient: [...] Minh,Symptomatic as Kathrin Guthrie MD; Redefined by [facility])(08/30/20) (First Test)(Hospitalized)() (NotResident inCongregate CareSetting) (NotEmployed inHealthcare Setting)DIAGNOSTIC STUDY ORDERSOrder Description Priority Entered Acknowledged InitialedUS Pelvis STAT 21:34 08/30/2020 21:39 Javed 2 OrderSheet [facility] Emergency Department [address] [place] [address] Phone #: ext- [phone] 08/30/2020 20:54 Patient: KATH SCHAEFER Sex: F : 2000 Age: 20y(Oxygen?(No)) Kathrin Guthrie MD; Linus RN NOTES: pelvic pain, please also r/o torsion Reason for Study: Pelvic PainMEDICATION/IV/DRIP/FLUID ORDERSOrder Description Priority Entered Acknowledged InitialedAcetaminophen IV 21:09 08/30/2020 21:25 Irylp0164 mg (NOW x1, Kathrin Guthrie MD; Linus [...] rce(s) Supporting Document(s) ID Date Data Source [id number] 08/30/2020 08:54:00 PM [place] [address] Medication Reconciliation Report [facility] Emergency Department [address] [place] [address] Phone #: ext- [phone] 08/30/2020 20:54 Patient: KATH SCHAEFER Sex: F [...] rce(s) Supporting Document(s) ID Date Data Source [id number] 08/30/2020 08:54:00 PM [place] [address] Medication Administration Record [facility] Emergency Department [address] [place] [address] Phone #: ext- [phone] 08/30/2020 20:54 Patient: KATH SCHAEFER Sex: F [...] rce(s) Supporting Document(s) ID Date Data Source [id number] 08/30/2020 08:54:00 PM [facility] 1 General Instructions [facility] Emergency Department [address] [place] [address] Phone #: ext- [phone] 08/30/2020 20:54 Patient: KATH SCHAEFER Sex: F : 2000 Age: 20yPelvic pain.ectoptic versus ovarian torsion.(Electronically signed by Kathrin Guthrie MD 08/31/2020 06:48) Name Value Range Interpretation Code Description Data Gini rce(s) Supporting Document(s) ID Date Data Source [id number] 08/30/2020 08:54:00 PM [facility] 1 Clinical Report - Nurses [facility] Emergency Department [address] [place] [address] Phone #: ext- [phone] 08/30/2020 20:54 Patient: KATH SCHAEFER Sex: F : 2000 Age: 20yTRIAGEArrived by private vehicle. Historian: patient. Accompanied by family. ( Patient states she took atampon out about 15 minutes ago and had immediate pelvic and vaginal pain.).Acuity: LEVEL 3.Chief Complaint: PELVIC PAIN.Alert.This started just prior to arrival.Treatment CLINICAL WRITER:None.SEPSIS SCREEN: SIRS SCREEN NEGATIVE. SEPSIS SCREEN NEGATIVE. [...] to Coronavirus. 2 Clinical Report - Nurses [facility] Emergency Department [address] [place] [address] Phone #: ext- [phone] 08/30/2020 20:54 Patient: KATH SCHAEFER Sex: F [...] Barriga RN 3 Clinical Report - Nurses [facility] Emergency Department [address] [place] [address] Phone #: ext- [phone] 08/30/2020 2 0:54 [...] --21:25 08/30/20 Javed Barriga RN 21:25 08/30/2020 [facility] * Drip IV 1000 MG INFUSED AT 400 ML/HR OVER 15 MINUTES --21:25 08/30/20 Javed Barriga RN 21:44 08/30/2020 [facility] Drip IV Discontinued: infused. Total amount [...] Carolin Wilkinson. 4 Clinical Report - Nurses [facility] Emergency Department [address] [place] [address] Phone #: ext- [phone] 08/30/2020 20:54 Patient: KATH SCHAEFER Sex: F : 2000 Age: 20yLocked/Released at 08/31/2020 00:34 by Carolin Wilkinson Name Value Range Interpretation Code Description Data Gini rce(s) Supporting Document(s) ID Date Data Source [id number] 08/30/2020 08:54:00 PM EST [facility] 1 Clinical Report - Physicians/Mid Levels [facility] Emergency Department [address] [place] [address] Phone #: ext- [phone] 08/30/2020 20:54 Patient: [...] EXAM 2 Clinical Report - Physicians/Mid Levels [facility] Emergency Department [address] [place] [address] Phone #: ext- [phone] 08/30/2020 20:54 Patient: KATH SCHAEFER Sex: F [...] OR CLEARED MOLECULAR TESTS. NEGATIVE RESULTSDO NOT [id number] INFECTION AND SHOULD NOT BE USED THE [...] 0.0) 3 Clinical Report - Physicians/Mid Levels [facility] Emergency Department [address] [place] [address] Phone #: ext- [phone] 08/30/2020 20:54 [id number] Sex: F : 2000 Age: 20y % [...] Male GFR Interprentation 20-49 yrs >60 mL/min Lgnsfa22-63 yrs >56 mL/min Normal 60-69 yrs >49 mL/min Normal 70-79yrs>42 mL/min Normal 80 and above >35 mL/min Normal Female GFRInterpretation 20-39 yrs >60 mL/min Normal 40-49 yrs >58 mL/minNormal 50-59 yrs >51 mL/min Normal 60-69 yrs >45 mL/min Rxjgvx31-34 yrs >39 mL/min Normal 80 and above >32 mL/min NormalType Rh: (NII: 08/30/2020 23:00) ( MsgRcvd 08/30/2020 23:50) Final results Test Result Flag Units (Reference) ABO GROUP O RH TYPE POSITIVE { ABO/RH REENTER O POSITIVEUS TRANSVAGINAL (NON OB): (NII: 08/30/2020 22:00) ( MsgRcvd 08/31/2020 00:01) In Progress Exam US TRANSVAGINAL(NON OB) [place] [address] PHONE: [phone] FAX: [phone] Clinical Report - Physicians/Mid Levels [facility] Emergency Department [address] [place] [address] Phone #: ext- [phone] 08/30/2020 20:54 Patient: KATH SCHAEFER Sex: F : 2000 Age: 20y Name .................. : SILVANO Low Acct Number.................. : [id number] ROOM. ................. : [facility] MR Number ................... : [id number] Stay type ............. : E/R Discharge Date......... ... : Admit Date ......... : 08/30/20 Admit Phys .................... : COONEYNORM Date of ....... : 2000 Family Phys ................... : NO PCP Phone .................. : [phone] Age ................................ : 20 Film# .................. .:[id number] Sex ................................. : F Unsigned transcriptions are preliminary reports and do not represent a medical or legal document PELVIC [id number] COMPLETE:08/30/20 22:31 DLA 3735 Reason(s): Pelvic Pain US TRANSVAGINAL(NON OB) [id number] COMPLETE: 08/30/20 22:31 DLA 3736 (REASON FOR [...] please also r/o torsion [place] [address] PHONE: [phone] FAX: [phone] Clinical Report - Physicians/Mid Levels [facility] Emergency Department [address] [place] [address] Phone #: [phone] wmo- [phone] 08/30/2020 20:54 Patient: KATH SCHAEFER Sex: F : 2000 Age: 20y Name .................. : SILVANO Low Acct Number.................. : [id number] ROOM. ................. : TR-05 MR Number ................... : [id number] Stay type ............. : E/R Discharge Date......... ... : Admit Date ......... : 08/30/20 Admit Phys ......... ........... : COONEYNORM Date of ....... : 2000 Family Phys ................... : NO PCP Phone .................. : [phone] Age ................................ : 20 Film# .................. .:[id number] Sex ................................. : F Unsigned transcriptions are preliminary reports and do not represent a medical or legal document PELVIC [id number] COMPLETE:08/30/20 22:31 DLA 3735 Reason(s): Pelvic Pain US TRANSVAGINAL(NON OB) [id number] COMPLETE: 22:31 DLA 3736 (REASON FOR OBS: [...] Weeks post LMP 5.4- 708 mU/mL 3-4 Velgt114-32914 mU/mL 5-6 Weeks 4059- 469949 mU/mL 7-8 Usxjo48374-558848 mU/mL 9-10 Weeks 81093-29920 mU/mL 12-14 Gdqfh77840-01807 mU/mL 15-16 Weeks 8240-10084 mU/mL 17-18 Weeks 6 Clinical Report - Physicians/Mid Levels [facility] Emergency Department [address] [place] [address] Phone #: ext- [phone] 08/30/2020 20:54 Patient: [...] to left ovary. I spoke to the assistant operator, Faye. She was unable to discern whether [...] rce(s) Supporting Document(s) ID Date Data Source [id number] 08/30/2020 08:54:00 PM EST [facility] Addenda for KATH SCHAEFER VisitID: [id number] Date: 22:45faxed med rec and overview to at 2248(Electronically signed by Faviola Finney - 08/30/2020 22:45) Name Value Range Interpretation Code Description Data Gini rce(s) Supporting Document(s) ID Date Data Source [id number] 08/31/2020 12:20:00 AM EST [facility] ([facility]) Name Value Range Interpretation Code Description Data Gini rce(s) Supporting Document(s) Source Laboratory test result [facility] ([facility]) SOURCE: Clean Catch Urinalysis Laboratory test result [facility] ([facility]) SOURCE: Clean Catch Clarity Laboratory test result [facility] ([facility]) SOURCE: Clean Catch Color Laboratory test result [facility] ([facility]) SOURCE: Clean Catch pH 6 5-9 [facility] ([facility]) SOURCE: Clean Catch Spec Sontag 1.025 1.001-1.030 [facility] ([facility]) SOURCE: Clean Catch Bilirubin Laboratory test result [facility] ([facility]) SOURCE: Clean Catch Glucose Laboratory test result [facility] ([facility]) SOURCE: Clean Catch Ketone Laboratory test result [facility] ([facility]) SOURCE: Clean Catch Protein Laboratory test result [facility] ([facility]) SOURCE: Clean Catch Nitrite Laboratory test result [facility] ([facility]) SOURCE: Clean Catch Blood 10 Abnormal (applies to non-numeric res ults) [facility] ([facility]) SOURCE: Clean Catch Leuk Est Laboratory test result [facility] ([facility]) SOURCE: Clean Catch Urobilinogen Laboratory test result [facility] ([facility]) SOURCE: Clean Catch WBC Laboratory test result [facility] ([facility]) SOURCE: Clean Catch Microscopic Laboratory test result [facility] ([facility]) SOURCE: Clean Catch RBC Laboratory test result [facility] ([facility]) SOURCE: Clean Catch Epithelial Laboratory test result [facility] ([facility]) SOURCE: Clean Catch Bacteria Laboratory test result [facility] ([facility]) SOURCE: Clean Catch Mucous Laboratory test result [facility] ([facility]) SOURCE: Clean Catch ID Date Data Source [id number] 08/31/2020 12:40:00 AM EST [facility] Name Value Range Interpretation Code Description Data Gini rce(s) Supporting Document(s) URINALYSIS [facility] amaya URINALYSIS SOURCE Clean Catch [facility] ital COLOR yellow NORMAL: Yellow [facility] CLARITY clear NORMAL: Clear [facility] Specific gravity of Urine by Test strip 1.025 1.001 - 1.030 [facility] pH 6 5 - 9 [facility] Glucose [Mass/volume] in Urine by Test strip NORM NORMAL: Negat [facility] Bilirubin.total [Presence] in Urine by Test strip NEG NORMAL: Negative [facility] Ketones [Presence] in Urine by Test strip NEG NORMAL: Negative [facility] Protein [Mass/volume] in Urine by Test strip NEG NORMAL: Negat [facility] Nitrite [Presence] in Urine by Test strip NEG NORMAL: Negative [facility] BLOOD 10 NORMAL: Negative A [facility] Leukocyte esterase [Presence] in Urine by Test strip NEG KATHRIN L: Negative [facility] Urobilinogen [Mass/volume] in Urine by Test strip NOR less epifanio n 1.0 mg/dL [facility] MICROSCOPIC See Below [facility] WBC 0 - 1 NORMAL: NONE SEEN [facility] Erythrocytes [#/volume] in Urine by Test strip 1 - 3 NORMAL: NON E SEEN [facility] EPITHELIAL FEW NORMAL: NONE SEEN [facility] Bacteria [Presence] in Urine sediment by Light microscopy Tr kanwal NORMAL: NONE SEEN [facility] Mucus [Presence] in Urine sediment by Light microscopy Trace NORMAL: NONE SEEN [facility] ID Date Data Source [id number] 08/30/2020 11:50:00 PM EST [facility] Name Value Range Interpretation Code Description Data Gini rce(s) Supporting Document(s) ABO group [Type] in Blood O [facility] Rh [Type] in Blood POSITIVE [facility] { ABO/RH REENTER O POSITIVE ID Date Data Source [id number] 08/30/2020 11:26:00 PM EST [facility] Name Value Range Interpretation Code Description Data Gini rce(s) Supporting Document(s) COMPREHENSIVE METABOLIC PANEL [facility] COMPREHENSIVE METABOLIC PANEL Sodium [Moles/volume] in Serum or Plasma 137 mEq/L 134 - 153 [facility] Potassium [Moles/volume] in Serum or Plasma 4.2 mEq/L 3.6 - 5.0 [facility] Chloride [Moles/volume] in Serum or Plasma 100 mEq/L 98 - 107 [facility] Carbon dioxide, total [Moles/volume] in Serum or Plasma 29 MEQ/L 22 - 30 [facility] Glucose [Mass/volume] in Serum or Plasma 100 MG/DL 70 - 99 H [facility] BUN 12 MG/DL 7 - 21 [facility] Creatinine [Mass/volume] in Serum or Plasma 0.6 MG/DL 0.7 - 1.5 L [facility] BUN/CREAT 20 8 - 27 [facility] al Protein [Mass/volume] in Serum or Plasma 6.7 G/DL 6.3 - 8.2 [facility] Albumin [Mass/volume] in Serum or Plasma 4.0 G/DL 3.9 - 5.0 [facility] Globulin [Mass/volume] in Serum by calculation 2.7 GM/DL 2.4 - 3.2 [facility] A/G RATIO 1.5 0.8 - 2.0 [facility] Calcium [Mass/volume] in Serum or Plasma 9.6 MG/DL 8.4 - 10.2 [facility] Bilirubin.total [Mass/volume] in Serum or Plasma <0.7 MG/DL 0.2 - 1.3 [facility] Alkaline phosphatase [Enzymatic activity/volume] in Serum or Plasma 73 U/L 38 - 126 [facility] Aspartate aminotransferase [Enzymatic activity/volume] in Serum or Plasma 15 U/L 5 - 40 [facility] Alanine aminotransferase [Enzymatic activity/volume] in Seru m or Plasma 10 U/L 7 - 56 [facility] Anion gap 3 in Serum or Plasma 8.0 mmol/L 8.0 - 16.0 [facility] AGE [address] [facility] al NON-AA GFR >60 mL/min [facility] ital AFR AMER GFR >60 mL/min [facility] Ho spital Male GFR In terprentation 20-49 [...] >32 mL/min Normal ID Date Data Source [id number] 08/30/2020 11:17:00 PM EST [facility] Name Value Range Interpretation Code Description Data Gini rce(s) Supporting Document(s) CBC W/AUTOMATED DIFF [facility] COMPLETE BLOOD COUNT Leukocytes [#/volume] in Blood by Automated count 13.0 10^3/uL 4.2 - 11.0 H [facility] Erythrocytes [#/volume] in Blood by Automated count 3.55 10^6/uL 4. 20 - 5.40 L [facility] Hemoglobin [Mass/volume] in Blood 10.4 g/dL 12.0 - 16.0 L [facility] Hematocrit [Volume Fraction] of Blood by Automated count 31.8 % 3 7.0 - 47.0 L [facility] Erythrocyte mean corpuscular volume [Entitic volume] by Auto mated count 89.6 fL 81.0 - 101 [facility] Erythrocyte mean corpuscular hemoglobin [Entitic mass] by Automated count 29.3 pg 27.0 - 34.0 [facility] Erythrocyte mean corpuscular hemoglobin concentration [Mass/volume] by Automated count 32.7 g/dL 31.0 - 36.0 [facility] Erythrocyte distribution width [Ratio] by Automated count 12.6 % 11.5 - 14.5 [facility] Platelets [#/volume] in Blood by Automated count 267 10^3/uL 150 - 45 0 [facility] Platelet mean volume [Entitic volume] in Blood by Automated count 9.6 fL 7.4 - 10.4 [facility] Neutrophils/100 leukocytes in Blood by Automated count 84.0 % 37. 0 - 80.0 H [facility] Lymphocytes/100 leukocytes in Blood by Manual count 8.6 % 25.0 - 40.0 L [facility] Monocytes/100 leukocytes in Blood by Automated count 5.8 % 3.0 - 8.0 [facility] Eosinophils/100 leukocytes in Blood by Automated count 0.8 % 0.0 - 7.0 [facility] Basophils/100 leukocytes in Blood by Automated count 0.3 % 0.0 - 2.5 [facility] %IG 0.5 % 0.0 - 0.0 [facility] 0.0 % 0.0 - 0.0 [facility] al Neutrophils [#/volume] in Blood by Automated count 10.90 10^3/uL 2. 00 - 6.90 H [facility] Lymphocytes [#/volume] in Blood by Automated count 1.11 10^3/uL 0.60 - 3.40 [facility] Monocytes [#/volume] in Blood by Automated count 0.75 10^3/uL 0.00 - 0.90 [facility] Eosinophils [#/volume] in Blood by Automated count 0.10 10^3/uL 0.00 - 0.70 [facility] Basophils [#/volume] in Blood by Automated count 0.04 10^3/uL 0.00 - 0.20 [facility] #IG 0.07 10^3/uL 0.00 - 0.10 [facility] ospital #NRBC 0.00 10^3/uL 0.00 - 0.00 [facility] ospital MANUAL DIFF NOT INDICATED [facility] RBC MORPH NOT INDICATED [facility] spital ID Date Data Source [id number] 08/30/2020 10:48:00 PM EST [facility] ([facility]) Name Value Range Interpretation Code Description Data Gini rce(s) Supporting Document(s) Laboratory test finding (navigational concept) Laboratory test result [facility] ([facility]) First test?: Y~Employed in healthcare?: N~Symptomatic as defined by CDC?: N~Hospitalized?: Y Laboratory test finding (navigational concept) Laboratory test result [facility] ([facility]) First test?: Y~Employed in healthcare?: N~Symptomatic as defined by CDC?: N~Hospitalized?: Y ID Date Data Source [id number] 08/30/2020 10:48:00 PM EST [facility] Name Value Range Interpretation Code Description Data Gini rce(s) Supporting Document(s) COVID19 Case rprt NOT DETECTED [facility] This lab was ordered by [facility] and reported by [facility]. ID Date Data Source [id number] 08/30/2020 11:18:00 PM EST [facility] NOT DETECTEDNOT DETECTED{ PROC EDURAL CONTROL [...] rce(s) Supporting Document(s) ID Date Data Source [id number] 08/30/2020 10:18:00 PM [facility] Name Value Range Interpretation Code Description Data Gini rce(s) Supporting Document(s) Choriogonadotropin.intact [Units/volume] in Serum or Plasma 2399.0 mI U/mL [facility] Interpr etation: Less than 5 mU/mL: Negative 6-10 mU/mL: Borderline (suggest repeat in 48 hours) >10: Positive Approx HCG range (mU/mL) Weeks post LMP 5.4-708 mU/mL 3-4 Weeks 217-97000 mU/mL 5-6 Weeks 4059-692926 mU/mL 7-8 Weeks 63376-921549 mU/mL 9-10 Weeks 00153-84206 mU/mL 12-14 Weeks 83192-35827 mU/mL 15-16 Weeks 8240- 47178 mU/mL 17-18 Weeks ID Date Data Source [id number] 08/19/2020 04:27:00 PM [facility] 1 OrderSheet [facility] Emergency Department [address] [place] [address] Phone #: ext- [phone] 08/19/2020 16:12 Patient: [...] rce(s) Supporting Document(s) ID Date Data Source [id number] 08/19/2020 04:27:00 PM [place] [address] Medication Reconciliation Report [facility] Emergency Department [address] [place] [address] Phone #: ext- [phone] 08/19/2020 16:12 Patient: [...] Name Value Range Interpretation Code Description Data [facility] rce(s) Supporting Document(s) ID Date Data Source [id number] 08/19/2020 04:27:00 PM [facility] 1 Medication Administration Record [facility] Emergency Department [address] [place] [address] Phone #: exd- [phone] 08/19/2020 16:12 Patient: KATH SCHAEFER Sex: F : 2000 Age: 20yWeight: 72.5 kgHeight/Length: 64 inBMI: 27.5ALLERGIES: None Date/Time Medication Administered Medication OrderedGiven TDAP [IM] Tdap IM 0.5 mL17:15 08/19/2020 Dose: 0.5 mL lAeshia Garza R.N. Name Value Range Interpretation Code Description Data Gini rce(s) Supporting Document(s) ID Date Data Source [id number] 08/19/2020 04:27:00 PM EST [facility] 1 General Instructions [facility] Emergency Department [address] [place] [address] Phone #: ext- [phone] 08/19/2020 16:12 Patient: KTAH SCHAEFER Sex: F : 2000 Age: 20ySingle [...] your laceration at home: 2 General Instructions [facility] Emergency Department [address] [place] [address] Phone #: ext- [phone] 08/19/2020 16:12 [id number] Sex: [facility] : 2000 Age: 20y During [...] pain medicines were prescribed, you can use [id number] pain medicines. Follow instructions for taking these [...] scalp in about 7 to 10 days.Call [phone] if this occurs: Bleeding can't be controlled [...] Wound edges re- open 3 General Instructions [facility] Emergency Department [address] [place] [address] Phone #: ext- [phone] 08/19/2020 16:12 Patient: KATH SCHAEFER Sex: F : 2000 Age: 20y [id number] [employer]. [address] [place] [address]. All rights reserved. This information is not [...] pain medicines were prescribed, you can use zncy-wpn-esynagx pain medicines. Follow instructions for taking these [...] to 10 days.Call 911 4 General Instructions [facility] Emergency Department [address] [place] [address] Phone #: ext- [phone] 08/19/2020 16:12 Patient: [...] out before 7 days Wound edges re-open [phone] [employer]. [address] [place] [address], [place] [address]. All rights reserved. This information is not intended as asubstitute for professional medical care. Always follow your healthcare professional's instructions. You have been given the following additional information: Laceration, Scalp: Sutures or Shital Laceration, Scalp: Sutures or Shital(Electronically signed by Shawna Gomes M.D. 08/19/2020 20:54) Name Value Range Interpretation Code Description Data Gini rce(s) Supporting Document(s) ID Date Data Source [id number] 08/19/2020 04:27:00 PM EST [facility] 1 Clinical Report - Nurses [facility] Emergency Department [address] [place] [address] Phone #: ext- [phone] 08/19/2020 16:12 Patient: KATH SCHAEFER Sex: F : 2000 Age: 20yTRIAGEArrived by private vehicle. Historian: patient. Unaccompanied. ( something fell on her head, possiblesalt rock).Acuity: LEVEL 3.Chief Complaint: LACERATION.Alert.Pre-hospital notification of patient arrival was not received.Location of injuries: left frontal area. Occurred at home. Occurred 16:00 08/19/2020. The patient hashad a headache. ( was dizzy after laceration).Treatment CLINICAL WRITER:None.SEPSIS SCREEN: SIRS SCREEN NEGATIVE. SEPSIS SCREEN NEGATIVE. [...] R.N.ADDITIONAL SURGERIES: 2 Clinical Report - Nurses [facility] Emergency Department [address] [place] [address] Phone #: ext- [phone] 08/19/2020 16:12 Patient: [...] Hong R.N. 3 Clinical Report - Nurses [facility] Emergency Department [address] [place] [address] Phone #: ext- [phone] 08/19/2020 16:12 [id number] Sex: [facility] : 2000 Age: 20y HEENT: [...] 0.5 mL given(Lot#: [id number], expiration date: 06/01/2022, Rod Cup Filler: [employer]). Given in the right deltoid. Allergies verified [...] Patient Refused all vital signs. --17:36 08/19/20 [facility] Tech[facility] Departure time: late entry - 17:30 08/19/2020. Condition at departure: stable. ( Provider aware of all VS refusal). No learning barriers present. Discharge instructions provided and reviewed with the patient. Reviewed warnings (please see paper copy). Reviewed wound care and ice instructions. Activity restrictions reviewed. Work note given. Patient verbalized understanding. Written instructions provided in Samoan. The patient was discharged by the physician. She was discharged home and accompanied by reinforcer. She left ambulatory and via private vehicle. Mechanical Systems Designer driving. --17:38 08/19/20 Aleshia Boland R.N. 17:38 08/19/20. Pain level now deferred. --17:38 08/19/20 Aleshia Boland R.N.Locked/Released at 08/19/2020 17:38 by Aleshia Boland R.N. 4 Clinical Report - Nurses [facility] Emergency Department [address] [place] [address] Phone #: ext- [phone] 08/19/2020 16:12 Patient: KATH SCHAEFER Sex: F : 2000 Age: 20y Name Value Range Interpretation Code Description Data Gini rce(s) Supporting Document(s) ID Date Data Source [id number] 08/19/2020 04:27:00 PM EST [facility] 1 Clinical Report - Physicians/Mid Levels [facility] Emergency Department [address] [place] [address] Phone #: ext- [phone] 08/19/2020 16:12 Patient: [...] allergies. 2 Clinical Report - Physicians/Mid Levels [facility] Emergency Department [address] [place] [address] Phone #: ext- [phone] 08/19/2020 16:12 Patient: KATH SCHAEFER Sex: F [...] present. 3 Clinical Report - Physicians/Mid Levels [facility] Emergency Department [address] [place] [address] Phone #: ext- [phone] 08/19/2020 16:12 [id number] Sex: F : 2000 Age: 20yINSTRUCTIONS Apply [...] pressure 126 mm[Hg] 126 mm[Hg] M [facility] ([facility]) Diastolic blood pressure 86 mm[Hg] 86 mm[Hg] [facility] ([facility]) Heart rate 112 /min 112 /min [facility] ([facility]) Body temperature 98.5 [degF] 98.5 [degF] [facility] ([facility]) Respiratory rate 20 /min 20 /min [facility] ( [facility]) Oxygen saturation in Arterial blood by Pulse oximetry 98 % 98 % [facility] ([facility]) ID Date Data Source [id number] 05/16/2021 04:53:00 AM EDT [facility] Name Value Range Interpretation Code Description Data Source(s) Weight Measurement Method 1 1 [facility] Weight (Calculated Kilograms) 64.86 64.86 [facility] Weight 2288 2288 [facility] Temperature Source 7 7 [facility] Temperature 98.1 98.1 [facility] Respiratory Effort 1 1 [facility] Respiratory Rate 16 16 [facility] Pulse Assessment Method 4 4 [facility] Pulse Rate 72 72 [facility] Height (Calculated Centimeters) 157.48 157. 48 [facility] Height 62 62 [facility] Blood Pressure 101/66 101/66 [facility] Body Mass Index (BMI) 26.2 26.2 [facility] Weight Measurement Method 1 1 [facility] Weight (Calculated Kilograms) 64.86 64.86 [facility] Weight 2288 2288 [facility] Temperature Source 7 7 [facility] Temperature 98.1 98.1 [facility] Respiratory Effort 1 1 [facility] Respiratory Rate 16 16 [facility] Pulse Assessment Method 4 4 [facility] Pulse Rate 72 72 [facility] Height (Calculated Centimeters) 157.48 157. 48 [facility] Height 62 62 [facility] Blood Pressure 101/66 101/66 [facility] Body Mass Index (BMI) 26.2 26.2 [facility] Weight Measurement Method 1 1 [facility] Weight (Calculated Kilograms) 64.86 64.86 [facility] Weight 2288 2288 [facility] Temperature Source 7 7 [facility] Temperature 98.1 98.1 [facility] Respiratory Effort 1 1 [facility] Respiratory Rate 16 16 [facility] Pulse Assessment Method 4 4 [facility] Pulse Rate 72 72 [facility] Height (Calculated Centimeters) 157.48 157. 48 [facility] Height 62 62 [facility] Blood Pressure 101/66 101/66 [facility] Body Mass Index (BMI) 26.2 26.2 [facility] Weight Measurement Method 1 1 [facility] Weight (Calculated Kilograms) 64.86 64.86 [facility] Weight 2288 2288 [facility] Temperature Source 7 7 [facility] Temperature 97.7 97.7 [facility] Respiratory Effort 1 1 [facility] Respiratory Rate 16 16 [facility] Pulse Assessment Method 4 4 [facility] Pulse Rate 72 72 [facility] Height (Calculated Centimeters) 157.48 157. 48 [facility] Height 62 62 [facility] Blood Pressure 115/72 115/72 [facility] Body Mass Index (BMI) 26.2 26.2 [facility] Weight Measurement Method 1 1 [facility] Weight (Calculated Kilograms) 64.86 64.86 [facility] Weight 2288 2288 [facility] Temperature Source 6 6 [facility] Temperature 98.8 98.8 [facility] Respiratory Effort 1 1 [facility] Respiratory Rate 16 16 [facility] Pulse Assessment Method 1 1 [facility] Pulse Rate 68 68 [facility] Height (Calculated Centimeters) 157.48 157. 48 [facility] Height 62 62 [facility] Blood Pressure 122/68 122/68 [facility] Body Mass Index (BMI) 26.2 26.2 [facility] ID Date Data Source [id number] 09/17/2020 10:23:20 AM [facility] Name Value Range Interpretation Code Description Data Source(s) WEIGHT RECORDED 190.00 pounds 190.00 pounds [facility] Height 63 Inches 063 Inches [facility] Patient Treatment Plan of Care Planned Activity Planned Date Details Description Data Source (s) Thiamine 100 MG Oral Tablet 05/02/2021 12:00:00 AM [facility] Multi-Vit/Mineral (Multivitamin Tablet) 1 TAB TAB 05/02/2021 12: 00:00 AM [facility] Ibuprofen 600 MG Oral Tablet 05/02/2021 12:00:00 AM [facility] Folic Acid 1 MG Oral Tablet 05/02/2021 12:00:00 AM [facility] Clonidine Hydrochloride 0.1 MG Oral Tablet 05/02/2021 12:00:00 AM [facility]
[2021-05-31 10:06] VITALS: BP 126/67
--- NOTE | 2021-05-31 12:45 | ECGEPIP ---
[facility] - ED Test Date: 2021-05-30 Pat Name: TRISH SCHAEFER Department: Room: [place] [address] Gender: Female Vice President Media Relations: ED : 2000 Requested By: ROXY Harrison Order Number: [id number] Reading MD: Delia Caban Measurements Intervals [place] Rate: 63 P: 50 ID: [id number] QRS: 84 QRSD: 90 T: 60 QT: 410 QTc: 419 Interpretive Statements Normal sinus rhythm benign early repolarization Nonspecific ST T wave changes 07/03/[address] T wave changes Electronically Signed on 05-31-2021 12:44:35 EDT by Delia Caban
[2021-05-31] MEDS: ACETAMINOPHEN TAB 650MG DOSE (2X325MG) PO PRN ×2 (14:10→20:31)
[2021-05-31] MEDS: FLUoxetine 20 MG CAP PO SCH (14:10)
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
[2021-05-31] MEDS: hydrOXYzine 25 MG TAB PO PRN (17:15)
[2021-05-31 18:41] VITALS: BP 112/56
[2021-05-31] MEDS: cloNIDine 0.1MG TABLET PO PRN (20:30)
[2021-06-01 06:48] VITALS: BP 124/60
[2021-06-01] MEDS: FLUoxetine 20 MG CAP PO SCH (08:21)
[2021-06-01] MEDS: ACETAMINOPHEN TAB 650MG DOSE (2X325MG) PO PRN ×2 (08:22→17:37)
[2021-06-01] MEDS: hydrOXYzine 25 MG TAB PO PRN ×2 (08:23→17:37)
[2021-06-01] MEDS ORDERED: INFLUENZA QUADRIVALENT PF VACCINE 0.5ML SYRINGE IM ONE (09:00)
[2021-06-01] MEDS: cloNIDine 0.1MG TABLET PO PRN ×2 (10:11→18:31)
[2021-06-01] MEDS ORDERED: FIORICET TAB PO ONE (10:25)
[2021-06-01] MEDS ORDERED: FIORICET TAB PO PRN (10:25)
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
--- NOTE | 2021-06-01 11:04 | REP ---
INDICATION: back pain. COMPARISON: CT abdomen pelvis reconstructions 07/03/2019 TECHNIQUE: Standard five views and with flexion/extension. FINDINGS: Frontal view shows mild levoconvex curve of the lumbar spine centered at L2. Pedicles, spinous and transverse processes are intact. Lower thoracic spine vertebral bodies and visualized ribs intact. Sacral ala and foramina unremarkable. SI joints, visualized iliac wings and hip joints unremarkable. There is slight loss of the normal lordosis on the lateral view. The flexion/ extension views show limited range of motion. Disc space, vertebral body heights and posterior elements are unremarkable. No spondylolysis or spondylolisthesis. IMPRESSION: 1. Some loss of lordosis and decreased range of motion which may reflect some degree of spasm. 2. Disc space and vertebral body heights intact. No spondylolysis or spondylolisthesis. 3. Lumbosacral junction, sacral ala and foramina unremarkable. <Electronically signed by Flash Hammonds > 06/01/21 1100
[2021-06-01] MEDS: DICLOFENAC EPOLAMINE 1.3 % PATCH TOP SCH ×2 (11:47→21:39)
[2021-06-01] MEDS ORDERED: traZODone 100 MG TAB PO PRN (12:20)
[2021-06-01 18:22] VITALS: BP 143/70
[2021-06-01 19:39] LABS: GC DNA AMPLIFICATION NEGATIVE (NEGATIVE)
[2021-06-02 06:35] VITALS: BP 118/63
[2021-06-02 06:40] VITALS: BP 118/63
[2021-06-02] MEDS: ACETAMINOPHEN TAB 650MG DOSE (2X325MG) PO PRN ×2 (07:01→14:19)
[2021-06-02] MEDS: FLUoxetine 20 MG CAP PO SCH (08:03)
[2021-06-02] MEDS: cloNIDine 0.1MG TABLET PO PRN ×2 (08:04→14:20)
[2021-06-02] MEDS: DICLOFENAC EPOLAMINE 1.3 % PATCH TOP SCH ×2 (08:05→21:36)
[2021-06-02] MEDS: hydrOXYzine 25 MG TAB PO PRN (11:47)
--- NOTE | 2021-06-02 12:48 | MHIPN ---
[facility]ITAL PROGRESS NOTE DATE: 06/01/2021 HISTORY OF PRESENT ILLNESS: The patient today states that she is just tired; she did not sleep as much. She is denying suicidal thoughts and feeling less depressed, feeling her medications are helping her. Her anxiety is under better control. MENTAL STATUS EXAM: This patient is alert and oriented times 3, pleasant and cooperative, verbally spontaneous. There is no formal thought disorder noted. Mood is good. Concentration fair. Insight and judgment fair. DIAGNOSES: 1. Other specified depressive disorder. 2. Other specified anxiety disorder. 3. Cannabis use disorder. 4. Amphetamine use disorder. TREATMENT PLAN: At this point we will continue to monitor the patient for continued elevation and stabilization of her mood, resolution of suicidal thoughts and mood symptom stabilization, and we will titrate medications as indicated. ERENDIRA
[2021-06-02] MEDS ORDERED: QUEtiapine FUMARATE 25 MG TAB PO ONE (13:20)
[2021-06-02 14:20] VITALS: BP 110/67
--- NOTE | 2021-06-02 16:34 | MHIPNPDOC ---
[facility] Progress Note Progress Note DATE OF SERVICE: 06/02/21 HISTORY: This is a 21-year-old single, unemployed, woman who was admitted after she took a handful of trazodone 100 mg, about 10 tablets, as a suicidal attempt. She has a history of abusing amphetamines. She was having suicidal thoughts. She is dealing with child protective services (CPS). Currently she has two children. They are in the custody of one with the child's father and the other one is with her family. She says that she has been feeling depressed, that she misses her children. She says that she just went inpatient about 2 weeks ago to detoxify, and then she went to inpatient rehabilitation for only 3 days. She had a problem with another resident there, but she decided that now she just wants to try outpatient. While she was there she said she was started on Prozac 20 mg daily. She was being prescribed Atarax, clonidine. She is not sure of the doses. She says she has not had prescriptions since she got discharged from there. Mainly the patient says that she has a lot of problems with a lot of anxiety, although I am not eliciting any symptoms of panic episodes. VITAL SIGNS: See below. NEW TEST RESULTS: None CURRENT MEDICATIONS: See below. MENTAL STATUS EXAMINATION: This is a 21-year-old single, unemployed, woman who was admitted after she took a handful of trazodone 100 mg, about 10 tablets, as a suicidal attempt Speech: Is fast, at times pressured Language skills are intact Thought processes including: Coherent and linear. Thought content: Reports depression and anxiety but denies suicidal ideations at this time. Abstract reasoning, and computation: Fair description of associations : Eyes is not observed Description of abnormal or psychotic thoughts: Denies, is not observed with psychotic features. Judgment: Fair. Insight: Fair Orientation: Alert and oriented to person place time situation Recent and remote memory: Intact Attention span and concentration: Fair Language: Expansive, Maltese Fund of knowledge: Average Mood: Depressed affect: Anxious. DIAGNOSES: 1. Other specified depressive disorder. 2. Other specified anxiety disorder. 3. Amphetamine use disorder. 4. Cannabis use disorder. ASSESSMENT: Patient reports that she is very anxious and misses her children. Reports her anxiety is 6 out of 10, depression 4 out of 10. States that she is getting very poor sleep well hospitalized and is feeling very antisocial does not want to socialize with her peers she is requesting to be discharged. Denies that she is currently having suicidal ideations. Patient was very tearful throughout her interview reporting that people are often "gas lighting "her. MANAGEMENT PLAN: Continue all medications as prescribed. Continue all supportive therapies as prescribed. Patient to be discharged Wednesday TIME SPENT: 25 minutes. Vital Signs Vital Signs Date Time Temp Pulse Resp B/P (MAP) Pulse Ox O2 Delivery O2 Flow Rate FiO2 06/02/21 14:20 110/67 06/02/21 12:45 16 06/02/21 11:35 Room Air 06/02/21 06:40 98.2 79 100 Laboratory Data 24H Labs Laboratory Tests 2 06/01/21 16:45: Urine Color YELLOW, Urine Appearance CLOUDYH, Urine pH 7.0, Urine Specific [place] 1.017, Urine Protein NEGATIVE, Urine Glucose (UA) NEGATIVE, Urine Ketones NEGATIVE, Urine Blood NEGATIVE, Urine Nitrite NEGATIVE, Urine Bilirubin NEGATIVE, Urine Urobilinogen 0.2, Urine Leukocyte Esterase NEGATIVE, Urine WBC (Auto) 0, Urine RBC (Auto) 0, Urine Hyaline Casts (Auto) 0, Urine Bacteria (Auto) NEGATIVE, Urine Squamous Epithelial Cells 1, Urine Amorphous Sediment SMALLH, Urine Sperm (Auto) , Chlamydia trachomatis DNA (MEGHAN) NEGATIVE, Neisseria gonorrhoeae DNA (MEGHAN) NEGATIVE, Trichomonas vaginalis (PCR) NOT DETECTED Current Medications Current Medications Medications (Trade) Dose Ordered Sig/Aisha Route PRN Reason Start Time Stop Time Status Last Admin Dose Admin Acetaminophen (Tylenol Tab) 650 mg Q6HP PRN PO HEADACHE or MILD DISCOMFORT 05/31/21 08:30 06/02/21 14:19 Acetaminophen/ Butalbital/ Caffeine (Fioricet) 2 ea Q4HP PRN PO HEADACHE 06/01/21 10:25 06/02/21 11:50 Al Hydrox/Mg Hydrox/Simethicone (Mylanta) 30 ml Q4HP PRN PO HEARTBURN/INDIGESTION 05/31/21 08:30 Clonidine HCl (Catapres) 0.1 mg Q6HP PRN PO anxiety 05/31/21 14:55 06/02/21 14:20 Diclofenac Epolamine (Flector 1.3%) 1 patch Q12H TOP 06/01/21 09:00 06/02/21 08:05 Fluoxetine HCl (PROzac) 20 mg DAILY PO 05/31/21 09:00 06/02/21 08:03 Home Med (Home Med List Complete!) ASDIRECTED XX 05/31/21 03:00 05/31/21 03:02 DC Hydroxyzine HCl (Atarax) 25 mg Q4HP PRN PO ANXIETY/AGITATION 05/31/21 14:55 06/02/21 11:47 Magnesium Hydroxide (Milk Of Magnesia) 30 ml DAILYPRN PRN PO CONSTIPATION 05/31/21 08:30 Quetiapine Fumarate (SEROquel) 50 mg QHS PO 06/02/21 21:00 Trazodone HCl (Desyrel) 50 mg QHSP PRN PO INSOMNIA 05/31/21 08:30 06/01/21 12:20 DC 05/31/21 20:30 Trazodone HCl (Desyrel) 100 mg QHSP PRN PO INSOMNIA 06/01/21 12:20 06/02/21 13:32 DC Allergies Coded Allergies: No Known Allergies (Unverified , 09/26/16) TAZ NICHOLS MUSIC EDUCATOR Jun 02, 2021 16:34
[2021-06-02 17:03] VITALS: BP 110/66
[2021-06-02] MEDS ORDERED: QUEtiapine FUMARATE 50MG TAB PO SCH (21:00)
[2021-06-03 06:18] VITALS: BP 132/62
[2021-06-03] MEDS: FLUoxetine 20 MG CAP PO SCH (08:59)
[2021-06-03] MEDS: DICLOFENAC EPOLAMINE 1.3 % PATCH TOP SCH (08:59)
[2021-06-03] MEDS: ACETAMINOPHEN TAB 650MG DOSE (2X325MG) PO PRN (09:00)
[2021-06-03] MEDS ORDERED: FLUO20CA22 PO (10:05)
[2021-06-03] MEDS ORDERED: ACET1TAB55 PO (10:05)
[2021-06-03] MEDS ORDERED: CLONI1TA PO (10:05)
[2021-06-03] MEDS ORDERED: QUET50TA4 PO (10:05)
[2021-06-03] MEDS ORDERED: DICL1PAT6 TOP (10:05)
--- NOTE | 2021-06-03 14:21 | MHDSPDOC ---
[facility] Discharge Summary Discharge Summary DATE OF ADMISSION: May 31, 2021 at 08:27 DATE OF DISCHARGE: Jun 03, 2021 at 11:58 DISCHARGE DIAGNOSES: 1. Other specified depressive disorder. 2. Other specified anxiety disorder. 3. Amphetamine use disorder. 4. Cannabis use disorder. REASON FOR ADMISSION: This is a 21-year-old single, unemployed, woman who was admitted after she took a handful of trazodone 100 mg, about 10 tablets , as a suicidal attempt. She has a history of abusing amphetamines. She was having suicidal thoughts. She is dealing with child protective services (CPS). Currently she has two children. They are in the custody of one with the child's father and the other one is with her family. She says that she has been feeling depressed, that she misses her children. She says that she just went inpatient about 2 weeks ago to detoxify, and then she went to inpatient rehabilitation for only 3 days. She had a problem with another resident there, but she decided that now she just wants to try outpatient. While she was there she said she was started on Prozac 20 mg daily. She was being prescribed Atarax, clonidine. She is not sure of the doses. She says she has not had prescriptions since she got discharged from there. Mainly the patient says that she has a lot of problems with a lot of anxiety, although I am not eliciting any symptoms of panic episodes. VITAL SIGNS: See below. CONSULTANTS INVOLVED: See Medical H + P by Hospitalist TREATMENT AND PROGRESS ON THE UNIT: Patient was admitted to the [facility] on a legal status was afforded the following treatment modalities: 1) Individual Therapy 2) Group Therapy 3) Medication Management 4) Milieu Therapy 5) Safe Environment HOSPITAL COURSE: Patient was admitted to [facility] on a 39 legal status. Patient took an overdose of trazodone as a suicide attempt due to withdrawing from amphetamines . She was on Lexapro 10 mg, clonidine 0.1 mg 3 times a day. She continued to complain about poor sleep, trazodone was discontinued. Seroquel 50 mg at at bedtime was all offered and she felt that this was a more effective medication for her insomnia. Patient had one-time dose of Seroquel 25 mg for her anxiety yesterday. The pt found medications beneficial and tolerated them well. Mood, anxiety, and intrusive thoughts improved with treatment. Pt attended groups daily during stay. She was seen in the milieu being social with her peers. pts symptoms improved with treatment. On day of discharge pt. denied depression, anxiety, insomnia, SI/HI, hallucinations, delusions. Pt was discharged home with follow-up with [facility]. Pt felt safe for discharge. DISCHARGE ASSESSMENT: In today's interview, patient is alert and oriented, pt.s dress is appropriate. Hygiene and grooming is well-kempt. Smiles on approach and is pleasant and engaged in the interview. Denies depression and anxiety. Denies suicidal and homicidal ideation, planning or intent. Denies and is not observed with juan carlos, psychotic symptoms of delusions, bizarre thinking, obsessions, paranoia, ruminations illogical thoughts, flight of ideas or having poor insight and judgement. Reinforced with patient need to abstain from alcohol and drugs. At discharge patient has normal mentation, declines further hospitalization on a voluntary status and meets criteria for discharge today. Discussed indications of medications, potential benefits and risks, alternatives (including no treatment) and questions were encouraged and answered. Patient encouraged to return to hospital if symptoms worsen or change and encouraged to call unit if he/she/they needs to speak to provider for questions regarding medications or care. MENTAL STATUS EXAMINATION ON DISCHARGE: This is a 21-year-old single, unemployed, woman who was admitted after she took a handful of trazodone 100 mg, about 10 tablets, as a suicidal attempt. She has a history of abusing amphetamines. Speech: Is fluid, conversant, normal rate, tone and volume Language skills are intact Thought processes including: linear and goal oriented Thought content: denies depression and anxiety. Denies suicidal/homicidal ideation, planning or intent. Abstract reasoning, and computation: fair Description of associations: denies, none observed Description of abnormal or psychotic thoughts: denies, none observed. Judgment: fair Insight: fair Orientation: alert and oriented to person, place, time and situation Recent and remote memory: intact Attention span and concentration: good Language: expansive Fund of knowledge: average Mood: Euthymic Mood Affect: reactive Suicide Risk Assessment: 1) Does the patient wish to be ? No 2) Since your admission, have you had any actual thought of killing yourself? No 3) Since your admission, have you been thinking about how you might do this? No 4) Since your admission, have you had these thoughts and had some intention of acting on them? No 5) Since your admission, have you started to work out or worked out the detai ls of how to kill yourself? No 5A) Do you intent to carry out this plan? No and NA 6) Have you ever done anything, started anything, or prepared to do anything with any intent to ? No 6A) How long since your admission did you do any of these? NA MEDICATIONS ON DISCHARGE: See Medication Reconciliation PLAN/FOLLOWUP ARRANGEMENTS: [facility] The amount of time spent in the coordination of care for this patient was approximately 25 minutes. ETOH/Disorder Med Rx ETOH/DRUG DISORDER RX: N/A Vital Signs/I&Os Vital Signs Date Time Temp Pulse Resp B/P (MAP) Pulse Ox O2 Delivery O2 Flow Rate FiO2 06/03/21 06:18 97.9 91 16 132/62 (85) 96 Room Air Medications Scheduled Clonidine Hcl (Clonidine HCl) 0.1 Mg Tablet, 0.1 MG PO TID for Anxiety, #21 Diclofenac Epolamine (Diclofenac Epolamine) 1.3% Patch, 1 PATCH TOP Q12H for Back Pain, #14 Fluoxetine Hcl (Fluoxetine HCl) 20 Mg Capsule, 20 MG PO DAILY for Depression, #7 Scheduled PRN Acetaminophen (Acetaminophen) 325 Mg Tablet, 650 MG PO Q8HP PRN for HEADACHE or MILD DISCOMFORT, #42 Quetiapine Fumarate (Quetiapine Fumarate) 50 Mg Tablet, 50 MG PO QHSP PRN for SLEEP, #7 Allergies Coded Allergies: No Known Allergies (Unverified , 09/26/16) TAZ NICHOLS [employer]CH[employer] LEAD Jun 03, 2021 14:17
== END 2021-06-03 11:58 | disposition home or self-care (01) | DRG 754 ==
LOC: M ED 19:38 → M ED INP 05-31 08:27 → M PSY 05-31 09:57
PROVIDERS: ADMIT Psychiatry & Neurology Psychiatry; ATTEND Psychiatry & Neurology Psychiatry
DX: F32.A Depression, unspecified (principal); D21.0 Benign neoplasm of connective and other soft tissue of head, face and neck; F41.9 Anxiety disorder, unspecified; F12.90 Cannabis use, unspecified, uncomplicated; F15.90 Other stimulant use, unspecified, uncomplicated; G25.81 Restless legs syndrome; M54.59 Other low back pain; R05.9 Cough, unspecified

== ENCOUNTER 2022-06-26 10:13 | Emergency (ER) | payer MEDICAID ==
[~2022-06-26] VITALS: Ht 162.6 cm; Wt 78.6 kg
[~2022-06-26 10:13] MED LIST changes: +ACET1TAB55 PO; +CLONI1TA PO; +DICL1PAT6 TOP; +FLUO20CA22 PO; +QUET50TA4 PO
[2022-06-26] MEDS ORDERED: BENZOCAINE 20% GEL 9GM TUBE (ANBESOL MAX STRENGTH) TOP ONE (11:50)
[2022-06-26] MEDS ORDERED: KETOROLAC 30 MG/ML 1ML VIAL IM ONE (11:50)
[2022-06-26] MEDS ORDERED: AMOX875T2 PO (11:51)
[2022-06-26 12:39] VITALS: BP 138/62
== END 2022-06-26 13:05 | disposition home or self-care (01) ==
LOC: M ED 10:13
DX: K02.9 Dental caries, unspecified (principal); K08.89 Other specified disorders of teeth and supporting structures; K05.30 Chronic periodontitis, unspecified; F41.9 Anxiety disorder, unspecified; F32.A Depression, unspecified; F17.200 Nicotine dependence, unspecified, uncomplicated
CPT/HCPCS: 84702; 96372; 99282; J1885

== ENCOUNTER → 2024-05-31 | Outpatient (CLI) | payer MEDICAID ==
[~2024-05-31] MED LIST changes: +AMOX875T2 PO; +FLUO-365 PO; -FLUO20CA22 PO; +ONDA-282 PO; -ONDA4TAB6 PO
== END ==
LOC: M OUTALCOH 13:05
PROVIDERS: ATTEND Psychiatry & Neurology Psychiatry
DX: F12.20 Cannabis dependence, uncomplicated (principal); F15.20 Other stimulant dependence, uncomplicated